=== PATIENT | male | born 1935 | race Caucasian/White ===

== ENCOUNTER 2016-06-29 15:49 | Outpatient (CLI) | payer MEDICARE | END 2016-06-29 15:50 | disposition critical access hospital (66) | DX: R07.9 Chest pain, unspecified (principal) | CPT/HCPCS: A0425; A0427 ==

== ENCOUNTER 2016-07-08 13:02 | Outpatient (CLI) | payer MEDICARE | END 2016-07-08 13:03 | disposition home or self-care (01) | DX: I25.10 Atherosclerotic heart disease of native coronary artery without angina pectoris (principal) ==

== ENCOUNTER 2016-12-12 07:24 | Outpatient (CLI) | payer MEDICARE ==
[2016-12-12 11:27] LABS: BASOPHILS % (AUTO) 0.2 %; EOSINOPHILS # (AUTO) 0.2 10^3/uL (0.0-0.7); EOSINOPHILS % (AUTO) 1.8 %; HCT - HEMATOCRIT 40.8 % (42.0-52.0); HGB - HEMOGLOBIN 13.8 g/dL (14.0-18.0); LYMPHOCYTES # (AUTO) 1.2 10^3/uL (1.5-3.5); LYMPHOCYTES % (AUTO) 13.9 %; MEAN CORPUSCULAR HEMOGLOBIN 30.7 pg (27.0-31.0); MEAN CORPUSCULAR HGB CONC 33.7 g/dL (32.0-36.0); MEAN PLATELET VOLUME 8.3 fL (7.4-11.4); MONOCYTES # (AUTO) 0.6 10^3/uL (0.0-1.0); MONOCYTES % (AUTO) 7.3 %; NEUTROPHILS # (AUTO) 6.8 10^3/uL (1.5-6.6); NEUTROPHILS % (AUTO) 76.8 %; RED BLOOD COUNT 4.49 10^6/uL (4.70-6.10); RED CELL DISTRIBUTION WIDTH 14.5 % (12.0-15.0); UNCORRECTED WHITE BLOOD COUNT 8.9 x10^3/uL; WHITE BLOOD COUNT 8.9 x10^3/uL (4.8-10.8)
[2016-12-12 11:43] LABS: ALBUMIN/GLOBULIN RATIO 1.3 (1.0-2.2); BILIRUBIN,TOTAL 0.5 mg/dL (0.2-1.0); BUN - BLOOD UREA NITROGEN 19 mg/dL (6-20); CALCIUM 9.4 mg/dL (8.5-10.3); CARBON DIOXIDE - CO2 29 mmol/L (21-32); CHLORIDE 105 mmol/L (101-111); CHOL/HDL RATIO 3.3 (<5.0); CHOLESTEROL 202 mg/dL; GFR - MDRD 72 (>89); GLUCOSE 104 mg/dL (70-100); HDL CHOLESTEROL 61 mg/dL; LDL/HDL RATIO 2.1 (<3.6); POTASSIUM 3.9 mmol/L (3.5-5.0); SODIUM 140 mmol/L (135-145); TOTAL PROTEIN 6.9 g/dL (6.7-8.2); TRIGLYCERIDES 59 mg/dL; VLDL CHOLESTEROL 12 mg/dL
== END 2016-12-12 07:25 | disposition home or self-care (01) ==
LOC: LAB.F 07:24
PROVIDERS: ATTEND Family Medicine
DX: E78.00 Pure hypercholesterolemia, unspecified (principal); I25.10 Atherosclerotic heart disease of native coronary artery without angina pectoris; I65.29 Occlusion and stenosis of unspecified carotid artery; I10 Essential (primary) hypertension
CPT/HCPCS: 36415; 80053; 80061; 84443; 85025

== ENCOUNTER 2017-05-21 09:12 | Outpatient (CLI) | payer MEDICARE ==
[2017-05-21 17:33] LABS: CALCIUM 9.9 mg/dL (8.5-10.3); CREATININE 1.3 mg/dL (0.6-1.2)
[2017-05-21 17:42] LABS: PSA FREE 4.33 ng/mL (0.16-2.81)
[2017-05-21 17:43] LABS: PSA TOTAL 28.36 ng/mL (0.000-2.000)
== END 2017-05-21 09:13 | disposition home or self-care (01) ==
LOC: LAB.F 09:12
PROVIDERS: ATTEND Family Medicine
DX: I10 Essential (primary) hypertension (principal); R97.20 Elevated prostate specific antigen [PSA]
CPT/HCPCS: 36415; 80048; 84154

== ENCOUNTER 2018-10-31 20:52 | Outpatient (CLI) | payer MEDICARE | END 2018-10-31 20:53 | disposition short-term general hospital (02) | LOC: EMS 20:52 | PROVIDERS: ATTEND Surgery | DX: M25.552 Pain in left hip (principal); R42 Dizziness and giddiness; W18.39XA Other fall on same level, initial encounter; Y92.039 Unspecified place in apartment as the place of occurrence of the external cause | CPT/HCPCS: A0425; A0429; A0888 ==

== ENCOUNTER 2019-03-01 11:51 | Outpatient (CLI) | payer MEDICARE ==
[2019-03-01 18:43] LABS: HGB - HEMOGLOBIN 13.7 g/dL (14.0-18.0); MEAN CORPUSCULAR HEMOGLOBIN 31.2 pg (27.0-31.0); MEAN CORPUSCULAR HGB CONC 31.4 g/dL (32.0-36.0); MEAN CORPUSCULAR VOLUME 99.3 fL (80.0-94.0); MEAN PLATELET VOLUME 9.7 fL (7.4-11.4); RED BLOOD COUNT 4.39 10^6/uL (4.70-6.10); RED CELL DISTRIBUTION WIDTH 13.8 % (12.0-15.0); WHITE BLOOD COUNT 9.6 x10^3/uL (4.8-10.8)
[2019-03-01 18:58] LABS: CALCIUM 9.3 mg/dL (8.5-10.3); CREATININE 0.9 mg/dL (0.6-1.2)
== END 2019-03-01 23:59 | disposition home or self-care (01) ==
LOC: LAB.N 11:51
PROVIDERS: ATTEND Physician Assistant Medical
DX: I10 Essential (primary) hypertension (principal); R06.02 Shortness of breath
CPT/HCPCS: 36415; 80048; 83880; 85027

== ENCOUNTER 2019-05-13 12:14 | Outpatient (CLI) | payer MEDICARE ==
[2019-05-13 19:07] LABS: BASOPHILS % (AUTO) 0.4 %; EOSINOPHILS # (AUTO) 0.1 10^3/uL (0.0-0.7); EOSINOPHILS % (AUTO) 0.9 %; HGB - HEMOGLOBIN 13.9 g/dL (14.0-18.0); LYMPHOCYTES # (AUTO) 0.9 10^3/uL (1.5-3.5); LYMPHOCYTES % (AUTO) 7.6 %; MEAN CORPUSCULAR HEMOGLOBIN 30.6 pg (27.0-31.0); MEAN CORPUSCULAR HGB CONC 30.8 g/dL (32.0-36.0); MEAN CORPUSCULAR VOLUME 99.6 fL (80.0-94.0); MEAN PLATELET VOLUME 10.1 fL (7.4-11.4); MONOCYTES # (AUTO) 0.8 10^3/uL (0.0-1.0); MONOCYTES % (AUTO) 7.3 %; NEUTROPHILS # (AUTO) 9.3 10^3/uL (1.5-6.6); NEUTROPHILS % (AUTO) 83.3 %; PLT - PLATELET COUNT 322 10^3/uL (130-450); RED BLOOD COUNT 4.54 10^6/uL (4.70-6.10); WHITE BLOOD COUNT 11.1 x10^3/uL (4.8-10.8)
[2019-05-13 19:15] LABS: CALCIUM 9.5 mg/dL (8.5-10.3); CREATININE 0.9 mg/dL (0.6-1.2)
[2019-05-13 19:30] LABS: PSA FREE 10.46 ng/mL (0.16-2.81)
[2019-05-13 19:31] LABS: PSA TOTAL 60.78 ng/mL (0.000-2.000)
== END 2019-05-13 23:59 | disposition home or self-care (01) ==
LOC: LAB.N 12:14
PROVIDERS: ATTEND Nurse Practitioner Gerontology
DX: R97.20 Elevated prostate specific antigen [PSA] (principal); R31.9 Hematuria, unspecified; R30.0 Dysuria
CPT/HCPCS: 36415; 80048; 84153; 84154; 85025; 87077; 87086; 87181

== ENCOUNTER 2019-06-27 00:15 | Outpatient (CLI) | payer MEDICARE | END 2019-06-27 00:16 | disposition critical access hospital (66) | LOC: EMS 00:15 | PROVIDERS: ATTEND Surgery | DX: M25.552 Pain in left hip (principal); W01.198A Fall on same level from slipping, tripping and stumbling with subsequent striking against other object, initial encounter; Y92.099 Unspecified place in other non-institutional residence as the place of occurrence of the external cause | CPT/HCPCS: A0425; A0429 ==

== ENCOUNTER 2019-06-27 00:30 | Emergency (ER) | payer MEDICARE ==
--- NOTE | 2019-06-27 00:33 | ED Physician Documentation ---
History of Present Illness - Stated complaint Stated Complaint: GLF, LT HIP PAIN - History obtained from History obtained from: Patient, EMS (the patient presents via ems after he had an unwitnessed fall and is c/o of left hip pain, ems reports he was able to bear weight on scene. reports he bumped against wall and slumped to the floor, c/o abrasion to left head. unknown if patient is anticoagulated or not.) Review of Systems Constitutional: reports: Reviewed and negative Eyes: reports: Reviewed and negative Ears: reports: Reviewed and negative Nose: reports: Reviewed and negative Throat: reports: Reviewed and negative Cardiac: reports: Reviewed and negative Respiratory: reports: Reviewed and negative GI: reports: Reviewed and negative : reports: Reviewed and negative Skin: reports: Other (abrasion to left scalp) Musculoskeletal: reports: Other (left hip pain) Neurologic: reports: Head injury Psychiatric: reports: Reviewed and negative Endocrine: reports: Reviewed and negative Immunocompromised: reports: Reviewed and negative PD PAST MEDICAL HISTORY - Past Medical History Cardiovascular: Hypertension, Coronary artery disease Respiratory: None Endocrine/Autoimmune: None GI: None : Benign prostate hypertrophy HEENT: None Psych: None Musculoskeletal: None Derm: None - Past Surgical History General: Other Ortho: Hip replacement, Other Cardiovascular: CABG Neuro: Craniotomy HEENT: Cataracts - Present Medications Home Medications: Ambulatory Orders Medication Instructions Recorded Confirmed Losartan Potassium 50 mg PO BID 09/13/15 06/27/19 Metoprolol Tartrate 37.5 mg PO BID 09/13/15 06/27/19 amLODIPine [Norvasc] 10 mg PO DAILY 09/13/15 06/27/19 acetaZOLAMIDE [Diamox Sequels] 500 mg PO BID 01/10/16 06/27/19 Acetaminophen 3 tab PO TID 06/27/19 06/27/19 Aspirin 81 mg PO DAILY 06/27/19 06/27/19 Calcium Carbonate [Tums (Calcium 1,000 mg PO DAILY 06/27/19 06/27/19 Carbonate 500mg)] Cholecalciferol (Vitamin D3) 1,000 unit PO DAILY 06/27/19 06/27/19 [Vitamin D3] Diclofenac Sodium [Voltaren] 100 gm TOP DAILY PRN 06/27/19 06/27/19 Furosemide [Lasix] 20 mg PO DAILY 06/27/19 06/27/19 Hydrocodone/Acetaminophen 1 tab PO Q4HR PRN 06/27/19 06/27/19 [Hydrocodone-Acetamin 5-325 mg] Nitroglycerin 0.4 mg SL DAILY PRN 06/27/19 06/27/19 hydrOXYzine HCL [Hydroxyzine HCl] 25 mg PO Q4HR PRN 06/27/19 06/27/19 - Allergies Allergies/Adverse Reactions: Allergies Allergy/AdvReac Type Severity Reaction Status Date / Time hydrochlorothiazide AdvReac Unknown Verified 06/27/19 00:47 lisinopril AdvReac Unknown Verified 06/27/19 00:47 rosuvastatin calcium * AdvReac Unknown Verified 06/27/19 00:47 [From Crestor] PD ED PE NORMAL - Vitals Vital signs reviewed: Yes - General General: No acute distress, Well developed/nourished - HEENT HEENT: PERRL, Ears normal, Moist mucous membranes, Pharynx benign, Dentition benign, Other (soft tissue injury to left parietal scalp, superficial 1 cm abrasion) - Neck Neck: Other (c collar in place, no cervical midline stepoffs or deformities, trachea midline) - Cardiac Cardiac: RRR, No murmur, Strong equal pulses - Respiratory Respiratory: No respiratory distress, Clear bilaterally - Abdomen Abdomen: Normal bowel sounds, Soft, Non tender, Non distended - Back Back: No CVA TTP, No spinal TTP, Other (no ctls step offs or deformities) - Derm Derm: Warm and dry - Extremities Extremities: Other (left le appears shortened and externally rotated, compartments soft, nv intact, palpable dp/pt pulses 2+ and symettric. ) - Neuro Neuro: casino manager 2-12 intact, No motor deficit, No sensory deficit, Normal speech, Other (awake, alert, oriented to name, place but not time.) - Psych Psych: Normal mood, Normal affect Results - Vitals Vitals: Vital Signs - 24 hr 06/27/19 06/27/19 06/27/19 00:30 01:40 03:05 Temperature 36.6 C Heart Rate 54 L 56 L 60 Respiratory 15 16 19 Rate Blood Pressure 190/78 H 184/74 H 194/80 H O2 Saturation 98 100 98 06/27/19 06/27/19 06/27/19 03:10 04:08 04:40 Temperature Heart Rate 60 74 95 Respiratory 19 15 18 Rate Blood Pressure 194/80 H 193/71 H 197/108 H O2 Saturation 98 98 97 06/27/19 06/27/19 05:24 05:47 Temperature 36.8 C Heart Rate 100 88 Respiratory 19 16 Rate Blood Pressure 198/98 H 176/83 H O2 Saturation 100 99 Oxygen O2 Source Room air - Labs Labs: Laboratory Tests 06/27/19 06/27/19 06/27/19 01:02 01:02 01:02 WBC 10.6 RBC 4.20 L Hgb 13.6 L Hct 41.5 L MCV 98.8 H MCH 32.4 H MCHC 32.8 RDW 13.8 Plt Count 262 MPV 9.8 Neut # (Auto) 8.8 H Lymph # (Auto) 1.0 L [place] # (Auto) 0.7 Eos # (Auto) 0.1 Baso # (Auto) 0.0 Absolute Nucleated RBC 0.00 Nucleated RBC % 0.0 PT 11.7 INR 1.0 APTT 28.6 Sodium 140 Potassium 3.7 Chloride 105 Carbon Dioxide 24 Anion Gap 11.0 BUN 24 H Creatinine 0.8 Estimated GFR (MDRD) 93 Glucose 111 H Calcium 9.5 Total Bilirubin 0.6 AST 11 ALT 10 Alkaline Phosphatase 84 Troponin I High Sens Total Protein 6.8 Albumin 4.0 Globulin 2.8 Albumin/Globulin Ratio 1.4 Lipase 33 Urine Color Urine Clarity Urine pH Ur Specific [place] Urine Protein Urine Glucose (UA) Urine Ketones Urine Occult Blood Urine Nitrite Urine Bilirubin Urine Urobilinogen Ur Leukocyte Esterase Ur Microscopic Review Urine Culture Comments 06/27/19 06/27/19 06/27/19 01:02 01:04 02:34 WBC RBC Hgb Hct MCV MCH MCHC RDW Plt Count MPV Neut # (Auto) Lymph # (Auto) [place] # (Auto) Eos # (Auto) Baso # (Auto) Absolute Nucleated RBC Nucleated RBC % PT INR APTT Sodium Potassium Chloride Carbon Dioxide Anion Gap BUN Creatinine Estimated GFR (MDRD) Glucose Calcium Total Bilirubin AST ALT Alkaline Phosphatase Troponin I High Sens 24.1 H* 24.9 H* Total Protein Albumin Globulin Albumin/Globulin Ratio Lipase Urine Color YELLOW Urine Clarity CLEAR Urine pH 6.5 Ur Specific [place] <=1.005 Urine Protein NEGATIVE Urine Glucose (UA) NEGATIVE Urine Ketones NEGATIVE Urine Occult Blood NEGATIVE Urine Nitrite NEGATIVE Urine Bilirubin NEGATIVE Urine Urobilinogen 0.2 (NORMAL) Ur Leukocyte Esterase NEGATIVE Ur Microscopic Review NOT INDICATED Urine Culture Comments NOT INDICATED PD MEDICAL DECISION MAKING - ED course Complexity details: considered differential (closed head injury, scalp abrasion, pelvic fracture, hip fracture, hip dislocation, femur fracture, cervical spine injury) - Consults Consults: Consulted (name) ([facility] orthopedic surgery dr. campbell. will accept this patient. ), Request heritage consultant accept pt in transfer (dr. campbell @ [phone], has agreed to accept this patient at [facility]. ) - Critical Care Time(min): 74 Time Includes: Direct patient care, Review records, Reassess patient, Document care, Coordinate care, Medical consult Data interpretation: Labs Procedures included in critical care time: Peripheral IV Procedures excluded from critical care time: EKG Departure - Departure Disposition: 02 Transfer Acute Care Hosp Clinical Impression: Elevated troponin Fracture of femoral neck, left, closed Qualifiers: Encounter type: initial encounter Qualified Code(s): S72.002A - Fracture of unspecified part of neck of left femur, initial encounter for closed fracture Condition: Stable
[2019-06-27] MEDS ORDERED: TETANUS/DIPHTHERIA/PERTUSSIS 0.5 ML SYRINGE IM ONE (00:44)
[2019-06-27] MEDS ORDERED: BACITRACIN ZINC OINT 1 PACKET TOP STA (00:44)
[2019-06-27 01:15] LABS: BASOPHILS % (AUTO) 0.3 %; EOSINOPHILS # (AUTO) 0.1 10^3/uL (0.0-0.7); HGB - HEMOGLOBIN 13.6 g/dL (14.0-18.0); MEAN CORPUSCULAR HEMOGLOBIN 32.4 pg (27.0-31.0); MEAN CORPUSCULAR HGB CONC 32.8 g/dL (32.0-36.0); MEAN CORPUSCULAR VOLUME 98.8 fL (80.0-94.0); MEAN PLATELET VOLUME 9.8 fL (7.4-11.4); MONOCYTES # (AUTO) 0.7 10^3/uL (0.0-1.0); MONOCYTES % (AUTO) 6.7 %; NEUTROPHILS # (AUTO) 8.8 10^3/uL (1.5-6.6); NEUTROPHILS % (AUTO) 82.4 %; PLT - PLATELET COUNT 262 10^3/uL (130-450); RED CELL DISTRIBUTION WIDTH 13.8 % (12.0-15.0); WHITE BLOOD COUNT 10.6 x10^3/uL (4.8-10.8)
[2019-06-27 01:29] LABS: BILIRUBIN,URINE NEGATIVE (NEGATIVE); GLUCOSE, URINE (UA) NEGATIVE (NEGATIVE); KETONES,URINE (UA) NEGATIVE (NEGATIVE); LEUKOCYTE ESTERASE, URINE NEGATIVE (NEGATIVE); NITRITE,URINE NEGATIVE (NEGATIVE); OCCULT BLOOD,URINE NEGATIVE (NEGATIVE); PH,URINE 6.5 PH (5.0-7.5); PROTEIN,URINE NEGATIVE (NEGATIVE); UROBILINOGEN,URINE 0.2 (NORMAL) E.U./dL (NORMAL)
[2019-06-27 01:31] LABS: CLARITY,URINE CLEAR (CLEAR)
[2019-06-27 01:35] LABS: PT - PROTHROMBIN TIME 11.7 secs (9.9-12.6)
[2019-06-27 01:36] LABS: ALBUMIN/GLOBULIN RATIO 1.4 (1.0-2.2); BILIRUBIN,TOTAL 0.6 mg/dL (0.2-1.0); CALCIUM 9.5 mg/dL (8.5-10.3); CREATININE 0.8 mg/dL (0.6-1.2); TOTAL PROTEIN 6.8 g/dL (6.7-8.2)
[2019-06-27 01:42] LABS: PARTIAL THROMBOPLASTIN TIME 28.6 secs (24.9-33.3)
--- NOTE | 2019-06-27 01:55 | CT Report ---
Reason: head injury Procedure Date: 06/27/2019 Accession Number: [id number] / [id number] Procedure: CT - HEAD WO CPT Code: Final Report FULL RESULT: EXAM: CT HEAD EXAM DATE: 06/27/2019 01:12 AM. CLINICAL HISTORY: Head injury. COMPARISON: None. TECHNIQUE: Multiaxial CT images were obtained from the foramen magnum to the vertex. Reformats: Sagittal and coronal. IV contrast: None. In accordance with CT protocol optimization, one or more of the following dose reduction techniques were utilized for this exam: automated exposure control, adjustment of mA and/or KV based on patient size, or use of iterative reconstructive technique. FINDINGS: Parenchyma: No intraparenchymal hemorrhage. No evidence of mass, midline shift, or CT findings of acute infarction. Núñez-white differentiation is distinct. Diffuse chronic microangiopathic white matter changes are evident. Extraaxial Spaces: Normal for age. No subdural or epidural collections identified. Ventricles: The ventricles and cortical sulci are enlarged, consistent with age-related tissue loss. Sinuses and orbits: Imaged paranasal sinuses, orbits, and mastoids show no significant abnormality. Bones: Postoperative changes in the right occipital skull. Other: None. IMPRESSION: Generalized age-related cortical atrophic changes without evidence of acute intracranial abnormality. Postoperative changes in the right occipital skull. RADIA
--- NOTE | 2019-06-27 01:57 | XRAY Report ---
Reason: ams Procedure Date: 06/27/2019 Accession Number: [id number] / [id number] Procedure: XR - Chest 1 View X-Ray CPT Code: 96835 Final Report FULL RESULT: EXAM: CHEST RADIOGRAPHY EXAM DATE: 06/27/2019 01:23 AM. CLINICAL HISTORY: Ams. COMPARISON: CHEST 2 VIEW 10/26/2018 4:13 PM. TECHNIQUE: 1 view. FINDINGS: Lungs/Pleura: Patchy bilateral airspace disease. No effusion or pneumothorax. Mediastinum: Cardiomegaly and postoperative changes. Other: None. IMPRESSION: Patchy bilateral airspace disease. RADIA
--- NOTE | 2019-06-27 02:01 | XRAY Report ---
Reason: fall left hip pain Procedure Date: 06/27/2019 Accession Number: [id number] / [id number] Procedure: XR - Hip w/Pelvis 2-3V LT CPT Code: Final Report FULL RESULT: EXAM: LEFT HIP RADIOGRAPHY EXAM DATE: 06/27/2019 01:23 AM. CLINICAL HISTORY: Fall left hip pain. COMPARISON: None. TECHNIQUE: 2 views. FINDINGS: Bones: Deformity of the proximal femur, likely representing an impacted subcapital left femoral neck fracture, superimposed upon severe osteoarthritic changes. Joints: Severe osteoarthritis of the left hip. Right hip replacement. Soft Tissues: Vascular calcifications. IMPRESSION: Deformity of the proximal left femur, most compatible with an impacted subcapital fracture superimposed upon severe osteoarthritis of the left hip. RADIA
--- NOTE | 2019-06-27 02:07 | CT Report ---
Reason: fall neck pain Procedure Date: 06/27/2019 Accession Number: [id number] / [id number] Procedure: CT - CERVICAL SPINE WO CPT Code: Final Report FULL RESULT: EXAM: CT CERVICAL SPINE WITHOUT CONTRAST DATE: 06/27/2019 01:12 AM. HISTORY: Fall, neck pain. COMPARISONS: None. TECHNIQUE: Thin-section axial images were acquired of the cervical spine without contrast. Post-processing: Coronal and sagittal reformats. Other: None. In accordance with CT protocol optimization, one or more of the following dose reduction techniques were utilized for this exam: automated exposure control, adjustment of mA and/or KV based on patient size, or use of iterative reconstructive technique. FINDINGS: Alignment: No scoliosis or spondylolisthesis. Bones: No fracture or bone lesion. Interspace Levels/Facets: There are cerclage wires with posterior fusion of CT 4 through C7 levels. Anterior bony fusion of at least C4-C6 levels. C1-C2: Unremarkable. C2-C3: Moderate bilateral facet hypertrophy. Moderate left and mild right neural foraminal narrowing. C3-C4: Uncovertebral osteophytosis with mild bilateral neural foraminal narrowing. C4-C5: Unremarkable. C5-C6: Unremarkable. C6-C7: Uncovertebral osteophytosis with mild left neural foraminal narrowing. C7-T1: Unremarkable. Musculature: Normal. No fatty atrophy. Other: The paravertebral and prevertebral soft tissues are unremarkable. Emphysema. IMPRESSION: No evidence of cervical spine fracture. RADIA
[2019-06-27] MEDS ORDERED: fentaNYL 100 MCG/2 ML VIAL IVP STA (05:09)
[2019-06-27 06:44] VITALS: BP 192/81
== END 2019-06-27 07:10 | disposition short-term general hospital (02) ==
LOC: EDBD → EDUNIT# → ED 00:30
DX: S72.002A Fracture of unspecified part of neck of left femur, initial encounter for closed fracture (principal); W19.XXXA Unspecified fall, initial encounter; Y92.199 Unspecified place in other specified residential institution as the place of occurrence of the external cause; R79.89 Other specified abnormal findings of blood chemistry; I10 Essential (primary) hypertension
CPT/HCPCS: 36415; 70450; 71045; 72125; 73502; 80053; 81003; 83690; 84484; 85025; 85610; 85730; 90471; 90715; 93005; 96374; 99285; 99291; A9270; 81001; 87086

== ENCOUNTER 2019-06-27 07:14 | Outpatient (CLI) | payer MEDICARE | END 2019-06-27 07:15 | disposition short-term general hospital (02) | LOC: EMS 07:14 | PROVIDERS: ATTEND Surgery | DX: S72.002A Fracture of unspecified part of neck of left femur, initial encounter for closed fracture (principal); W18.30XA Fall on same level, unspecified, initial encounter | CPT/HCPCS: A0425; A0428 ==

== ENCOUNTER 2019-08-21 21:03 | Outpatient (CLI) | payer MEDICARE | END 2019-08-21 23:59 | disposition critical access hospital (66) | LOC: EMS 21:03 | PROVIDERS: ATTEND Surgery | DX: R07.9 Chest pain, unspecified (principal) | CPT/HCPCS: A0425; A0429 ==

== ENCOUNTER 2019-08-21 21:15 | Emergency (ER) | payer MEDICARE ==
--- NOTE | 2019-08-21 21:26 | ED Physician Documentation ---
PD HPI CHEST PAIN - Stated complaint Stated Complaint: CP - History obtained from History obtained from: Patient, EMS - History of Present Illness Timing - onset: Other (This is a somewhat demented 84-year-old gentleman presents from a longterm. He has an extensive history of coronary disease, with a bypass and stenting although the details are somewhat lost because of his dementia. He has had 2 or 3 episodes of typical rest pain today lasting minutes at a time with shortness of breath. He is pain-free now.) Review of Systems Ten Systems: 10 systems reviewed and negative Constitutional: denies: Fever, Chills, Fatigue Cardiac: reports: Chest pain / pressure. denies: Palpitations Respiratory: reports: Dyspnea. denies: Cough GI: denies: Abdominal Pain PD PAST MEDICAL HISTORY - Past Medical History Cardiovascular: Hypertension, Coronary artery disease Respiratory: None Neuro: Dementia, Other Endocrine/Autoimmune: None GI: None : Benign prostate hypertrophy HEENT: None Psych: None Musculoskeletal: None Derm: None - Past Surgical History Past Surgical History: Yes General: Other Ortho: Hip replacement, Other Cardiovascular: CABG Neuro: Craniotomy HEENT: Cataracts - Present Medications Home Medications: Ambulatory Orders Medication Instructions Recorded Confirmed Losartan Potassium 50 mg PO BID 09/13/15 06/27/19 Metoprolol Tartrate 37.5 mg PO BID 09/13/15 06/27/19 amLODIPine [Norvasc] 10 mg PO DAILY 09/13/15 06/27/19 acetaZOLAMIDE [Diamox Sequels] 500 mg PO BID 01/10/16 06/27/19 Acetaminophen 3 tab PO TID 06/27/19 06/27/19 Aspirin 81 mg PO DAILY 06/27/19 06/27/19 Calcium Carbonate [Tums (Calcium 1,000 mg PO DAILY 06/27/19 06/27/19 Carbonate 500mg)] Cholecalciferol (Vitamin D3) 1,000 unit PO DAILY 06/27/19 06/27/19 [Vitamin D3] Diclofenac Sodium [Voltaren] 100 gm TOP DAILY PRN 06/27/19 06/27/19 Furosemide [Lasix] 20 mg PO DAILY 06/27/19 06/27/19 Hydrocodone/Acetaminophen 1 tab PO Q4HR PRN 06/27/19 06/27/19 [Hydrocodone-Acetamin 5-325 mg] Nitroglycerin 0.4 mg SL DAILY PRN 06/27/19 06/27/19 hydrOXYzine HCL [Hydroxyzine HCl] 25 mg PO Q4HR PRN 06/27/19 06/27/19 Isosorbide Mononitrate ER [Imdur] 60 mg PO DAILY #30 tablet 08/21/19 - Allergies Allergies/Adverse Reactions: Allergies Allergy/AdvReac Type Severity Reaction Status Date / Time hydrochlorothiazide AdvReac Unknown Verified 08/21/19 21:27 lisinopril AdvReac Unknown Verified 08/21/19 21:27 rosuvastatin calcium * AdvReac Unknown Verified 08/21/19 21:27 [From Crestor] - Social History Does the pt smoke?: No Smoking Status: Never smoker Does the pt drink ETOH?: No Does the pt have substance abuse?: No - Family History Family history: reports: Non contributory - Immunizations Immunizations: TDAP >10years/unknown - POLST Patient has POLST: Yes PD ED PE NORMAL - Vitals Vital signs reviewed: Yes - General General: No acute distress, Well developed/nourished, Other (He appears comfortable, he is modestly demented but pleasant and cooperative.) - HEENT HEENT: PERRL, EOMI - Neck Neck: Supple, no meningeal sign, No bony TTP - Cardiac Cardiac: RRR (Frequent extrasystoles, no murmur) - Respiratory Respiratory: No respiratory distress, Clear bilaterally - Abdomen Abdomen: Normal bowel sounds, Soft, Non tender - Back Back: No CVA TTP, No spinal TTP - Derm Derm: Normal color, Warm and dry - Extremities Extremities: Normal ROM s pain, No edema, No calf tenderness / cord - Neuro Neuro: Normal speech Results - Vitals Vitals: Vital Signs - 24 hr 08/21/19 21:23 Temperature 36.5 C Heart Rate 85 Respiratory 18 Rate Blood Pressure 173/72 H O2 Saturation 100 Oxygen O2 Source Room air - EKG (time done) 2115 Rate: Rate (enter#) (76) Rhythm: NSR (w pac) [place]: Normal QRS: LVH Ischemia: Non specific changes Computer interpretation: Agree with computer - Labs Labs: Laboratory Tests 08/21/19 08/21/19 08/21/19 21:25 21:25 21:25 WBC 8.1 RBC 3.82 L Hgb 12.3 L Hct 37.4 L MCV 97.9 H MCH 32.2 H MCHC 32.9 RDW 13.8 Plt Count 289 MPV 9.7 Neut # (Auto) 6.4 Lymph # (Auto) 0.8 L [place] # (Auto) 0.7 Eos # (Auto) 0.2 Baso # (Auto) 0.0 Absolute Nucleated RBC 0.00 Nucleated RBC % 0.0 Sodium 142 Potassium 3.5 Chloride 106 Carbon Dioxide 28 Anion Gap 8.0 BUN 24 H Creatinine 1.2 Estimated GFR (MDRD) 58 L Glucose 120 H Calcium 9.2 Total Bilirubin 0.6 AST 12 ALT 12 Alkaline Phosphatase 89 Troponin I High Sens 23.3 H* Total Protein 6.4 L Albumin 3.6 Globulin 2.8 Albumin/Globulin Ratio 1.3 Lipase 37 PD MEDICAL DECISION MAKING - ED course ED course: This is an 84-year-old gentleman with known coronary disease who presents with 2 typical episodes of chest pain today. His EKG is unchanged from prior. His troponin is very mildly elevated but it is in the same range as when he broke his hip and was rechecked twice a couple months ago so this may be his baseline troponin. I discussed the case with his daughter by phone, she relays that he is demented and before he was he did not want any more interventions on his heart and she had been told by the manufacturing operator that no more interventions would be available for him. As such she declined to have cardiology consultation or transfer. Departure - Departure Disposition: 01 Home, Self Care Clinical Impression: Chest pain Qualifiers: Chest pain type: unspecified Qualified Code(s): R07.9 - Chest pain, unspecified Condition: Good Record reviewed to determine appropriate education?: Yes Instructions: Angina Dc Prescriptions: Isosorbide Mononitrate ER [Imdur] 60 mg PO DAILY #30 tablet Comments: Follow-up with your primary care physician for further evaluation and treatment. Return if worse and you would like interventions upon your heart.
[2019-08-21 21:29] LABS: BASOPHILS % (AUTO) 0.2 %; EOSINOPHILS # (AUTO) 0.2 10^3/uL (0.0-0.7); EOSINOPHILS % (AUTO) 1.9 %; HGB - HEMOGLOBIN 12.3 g/dL (14.0-18.0); LYMPHOCYTES # (AUTO) 0.8 10^3/uL (1.5-3.5); LYMPHOCYTES % (AUTO) 10.3 %; MEAN CORPUSCULAR HEMOGLOBIN 32.2 pg (27.0-31.0); MEAN CORPUSCULAR HGB CONC 32.9 g/dL (32.0-36.0); MEAN CORPUSCULAR VOLUME 97.9 fL (80.0-94.0); MEAN PLATELET VOLUME 9.7 fL (7.4-11.4); MONOCYTES # (AUTO) 0.7 10^3/uL (0.0-1.0); MONOCYTES % (AUTO) 8.2 %; NEUTROPHILS # (AUTO) 6.4 10^3/uL (1.5-6.6); PLT - PLATELET COUNT 289 10^3/uL (130-450); RED BLOOD COUNT 3.82 10^6/uL (4.70-6.10); RED CELL DISTRIBUTION WIDTH 13.8 % (12.0-15.0); WHITE BLOOD COUNT 8.1 x10^3/uL (4.8-10.8)
[2019-08-21 21:43] LABS: ALBUMIN 3.6 g/dL (3.2-5.5); ALBUMIN/GLOBULIN RATIO 1.3 (1.0-2.2); BILIRUBIN,TOTAL 0.6 mg/dL (0.2-1.0); CALCIUM 9.2 mg/dL (8.5-10.3); CREATININE 1.2 mg/dL (0.6-1.2); TOTAL PROTEIN 6.4 g/dL (6.7-8.2)
--- NOTE | 2019-08-21 22:26 | XRAY Report ---
Reason: chest pain Procedure Date: 08/21/2019 Accession Number: [id number] / [id number] Procedure: XR - Chest 1 View X-Ray CPT Code: 20281 Final Report FULL RESULT: EXAM: CHEST RADIOGRAPHY EXAM DATE: 08/21/2019 09:48 PM. CLINICAL HISTORY: Chest pain. Intermittent sternal chest pain since this morning. Shortness of breath. COMPARISON: CHEST 2 VIEW 10/26/2018 4:13 PM CHEST 1 VIEW 06/27/2019 1:23 AM. TECHNIQUE: 1 view. FINDINGS: Lungs/Pleura: No significant consolidation, effusion, or definite pneumothorax. Mediastinum: Cardiac silhouette is within normal limits when accounting for lung volumes and technique. Moderate calcific aortic atherosclerosis. Other: Primary sternotomy and CABG. Severity generally change about the shoulders bilaterally, left greater than right. IMPRESSION: No acute cardiopulmonary abnormality demonstrated. RADIA
[2019-08-21] MEDS ORDERED: ISOSORBIDE MONONITRATE ER 30 MG TABLET PO STA (22:39)
[2019-08-21 22:54] VITALS: BP 172/90
== END 2019-08-21 23:49 | disposition home or self-care (01) ==
LOC: EDUNIT# → ED 21:15
DX: R07.9 Chest pain, unspecified (principal); I25.10 Atherosclerotic heart disease of native coronary artery without angina pectoris; I10 Essential (primary) hypertension; Z95.1 Presence of aortocoronary bypass graft; I49.1 Atrial premature depolarization; Z79.82 Long term (current) use of aspirin; F03.90 Unspecified dementia, unspecified severity, without behavioral disturbance, psychotic disturbance, mood disturbance, and anxiety
CPT/HCPCS: 36415; 71045; 80053; 83690; 84484; 85025; 93005; 99283; 99284; A9270

== ENCOUNTER 2020-01-31 14:00 | Outpatient (CLI) | payer MEDICARE ==
--- NOTE | 2020-01-31 17:14 | CONSULTATION NOTE ---
Palliative Care Consultation - Referral Referring Provider: LESLEY Singh Time of Visit: 5818-5231 Referral setting: Adult Family Home Referral Reason: Dementia with behavioral disturbances/OA pain/Advanced care Planning - Information Sources Records reviewed: Previous records reviewed History/Review of Systems obtained from: Patient, Family (Daughter/DPOA via phone), Caregiver (Nahid) Exam limitations: Clinical condition (cognitive impairment due to dementia) - History of Present Illness Brief History of Present Illness: 84 year old gentleman who is seen and evaluated today at [facility] [place] for initial palliative care consultation due to dementia with behavioral disturbances, congestive heart failure, and osteoarthritis pain management. The patient is a poor historian due to dementia. ~History is obtained from the patient's caregiver, Amita as well as his daughter, Fatouamta. The patient has had a cognitive decline over the last several years. He and his were living when his daughter, Fatoumata's property for some time until he began developing cognitive impairments and making accusations towards his regarding their relationship status. He eventually moved out into his own apartment approximately 3 years ago. The patient's daughter, Radha was going to the patient's apartment approximately 3 days/week until subsequently she was having to go on a routine basis due to the patient's underlying dementia. He initially then transition to [facility] assisted [facility] in 2018. He did not like that environmentAnd he felt isolated. He subsequently then broke his hip and then was at a rehab facility in [place] until he transferred to [facility] in October 2019. He has adjusted well to his present environment. He is choking and jovial with the staff and other residents. The staff report that the patient is beginning to display evidence of sundowning behavior. He has been more agitated in the evenings. He also demonstrates delusions. There have been times that he has been accusatory Of his son-in-law taking money from him to buy a tractor. Due to his delusions it is difficult for the patient's daughter, Fatoumata to be present in person. The patient also has a history of insomnia. He is presently on quetiapine 25 mg at bedtime. He has pain to his right shoulder as well as to his bilateral knees. He is presently on scheduled acetaminophen 1000 mg twice daily with as needed Diflucan neck gel to be applied to affected joints.Has not had the Diflucan neck gel consistently to note any improvement. No concerns regarding his appetite. [facility] He does have a history of congestive heart failure. Does have lower extremity edema that presently appears to be stable and maintained with furosemide 20 mg daily. Patient is seen in the common area in his wheelchair. He reports to being able to self propel in his wheelchair. Well groomed and clean with a jovial disposition. Medical/Surgical History - Past Medical History Cardiovascular: reports: Congestive heart failure (EF 55-60%), Hypertension, Coronary artery disease, [place], Atrial fibrillation Respiratory: reports: None Neuro: Dementia Neuro: reports: Other (Subdural hematoma with evacuation age 17) Endocrine/Autoimmune: reports: None GI: reports: None : reports: Benign prostate hypertrophy HEENT: reports: None Psych: reports: Anxiety Musculoskeletal: reports: Osteoarthritis Derm: reports: None MRSA Hx?: No Other Past Medical History: Insomnia - Past Surgical History General: reports: Other Ortho: reports: Hip replacement, Other Cardiovascular: reports: CABG Neuro: reports: Craniotomy HEENT: reports: Cataracts Other past surgical history: Insomnia - Substance History Use: Uses substance without health or social issues: NONE (Former tobacco use and former alcoholic) Social History - Living Situation Living arrangement: Adult family home Support System: Patient was born in [place]. He worked in a [employer] in [place]. He and his have 6 children. He and his are . The patient's daughter, Fatoumata is DPOA for both the patient and his . He retired from would be [employer] performing [place] [facility] work. Family History - Family History Family History: Mother: , Father: , [place], Sister: Alive and Well, Brother: , Cancer Family History Comment/Other: Patient's mother had polio. No prior history of of cognitive impairment in the family. Medications/Allergies - Medications Home Medications: Ambulatory Orders Medication Instructions Recorded Confirmed Losartan Potassium 50 mg PO BID 09/13/15 02/01/20 Metoprolol Tartrate 37.5 mg PO BID 09/13/15 02/01/20 amLODIPine [Norvasc] 10 mg PO DAILY 09/13/15 02/01/20 acetaZOLAMIDE [Diamox Sequels] 500 mg PO BID 01/10/16 02/01/20 Aspirin 81 mg PO DAILY 06/27/19 02/01/20 Calcium Carbonate [Tums (Calcium 1,000 mg PO BID 06/27/19 02/01/20 Carbonate 500mg)] Diclofenac Sodium [Voltaren] TOP DAILY 06/27/19 06/27/19 Furosemide [Lasix] 20 mg PO DAILY 06/27/19 02/01/20 Nitroglycerin 0.4 mg SL DAILY PRN 06/27/19 02/01/20 Isosorbide Mononitrate ER [Imdur] 60 mg PO DAILY #30 tablet 08/21/19 02/01/20 Acetaminophen [Tylenol] 650 mg PO Q4HR PRN MDD NTE 3g per 02/01/20 02/01/20 24hours Magnesium Hydroxide [Milk of 30 ml PO DAILY PRN MDD If no BM in 02/01/20 02/01/20 Magnesia] 3 days Melatonin 6 mg PO QPM 02/01/20 02/01/20 QUEtiapine [SEROquel] 50 mg PO DAILY 02/01/20 02/01/20 Tamsulosin HCl [Flomax] 0.4 mg PO DAILY 02/01/20 02/01/20 - Allergies Allergies/Adverse Reactions: Allergies Allergy/AdvReac Type Severity Reaction Status Date / Time hydrochlorothiazide AdvReac Unknown Verified 02/01/20 16:51 lisinopril AdvReac Unknown Verified 02/01/20 16:51 rosuvastatin calcium * AdvReac Unknown Verified 02/01/20 16:51 [From [facility]] Review of Systems - Constitutional Constitutional: reports: Weight stable. denies: Fever - Ears, Nose & Throat Ears, Nose & Throat: denies: Hearing aids - Cardiovascular Cardiovascular: reports: Edema. denies: Palpitations, Chest pain - Respiratory Respiratory: denies: Cough, Wheezing - Gastrointestinal Gastrointestinal: reports: Good appetite. denies: Constipation, Diarrhea - Genitourinary Genitourinary: denies: Dysuria, Hematuria - Musculoskeletal Musculoskeletal: reports: Stiffness, Limited range of motion (b/l shoulders), Joint pain (right shoulder, bilateral knees), Assistive devices - Integumentary Integumentary: denies: Pruritis - Neurological Neurological: reports: General weakness, Memory problems - Psychiatric Psychiatric: reports: Delusions (see HPI for further details), Behavior disturbances - Endocrine Endocrine: denies: Diabetes type 2 - All Other Systems All Other Systems: reports: Reviewed and negative (ROS supplemented by patient's daughter and caregivers as a poor historian due to dementia.) Physical Exam - Vital Signs Temperature: 36.4 C Pulse Rate: 76 O2 Saturation: 95 Blood Pressure: 154/52 (left wrist cuff) - Physical Exam General Appearance: positive: No acute distress, Alert, Other (OOB in wheelchair, well groomed) Eyes Bilateral: positive: Normal inspection ENT: positive: No signs of dehydration Neck: positive: Trachea midline Cardiovascular: positive: Regular rate & rhythm, No murmur Respiratory: positive: No respiratory distress, Breath sounds nml. negative: Wheezes Abdomen: positive: Non-tender, Soft, Nml bowel sounds, Other (Bladder nondistended) Skin: positive: Dryness Extremities: positive: Pedal edema (BLE edema +trace), Other (Decreased ROM with right shoulder past 90 degrees with noted crepitus; +crepitus noted to b/l knees; Strength to UE and LE equal and symmetric bilaterally) Neurologic/Psychiatric: positive: Mood/affect nml, Disoriented to place (Believed he was in [place]), Other (Memory recall 04/08) Palliative Care - POLST Patient has POLST: Yes POLST Status: DNR, Comfort Measures Pain: Pain unchanged, Location (see HPI and ROS for further details) Tiredness/Fatigue: Mild (1-3) Drowsiness/Sedation: None Nausea: None Anorexia: None Dyspnea: Mild (1-3) Depression: None Sleep: Sleeps poorly Constipation: No, Managed Performance Status: Patient has a history of falls. Uses a wheelchair to self propel with in the adult family home. Requires assistance with ADLs regarding self-care. Able to self feed. PPS 50% - Palliative Care Discussion: The patient has experienced a cognitive decline over the last several years with a more sharp functional decline after sustaining a hip fracture after a fall. The patient's daughter acknowledges the patient's underlying dementia contributing to his interactions and underlying behavioral disturbances. However, this does not make it any easier for those involved in his care. The patient's daughter/DPOA reports that he has been particularly "nasty" to her in the last year, therefore she is having to separate herself being physically present and being there by phone and remotely for her own wellbeing and underlying health. The patient is having underlying pain that is not fully controlled in his joints with acetaminophen. The patient's daughter and caregiving staff wish for this to be further addressed. The patient is also displaying increased delusions and agitation in the early evening hours indicative of sundowning behavior. Presently he is only on quetiapine 25 mg nightly and this is not adequately managing his symptoms. Impression and Recommendations - Palliative Care Impression: This is a delightful 84-year-old gentleman with a significant cardiac history with underlying chronic pain due to osteoarthritis as well as dementia with behavioral disturbances specifically, sundowning behaviors and delusions. The patient's daughter/DPOA wishes to focus on improving the patient's quality of life with symptom management. Palliative care to continue to provide supportive listening, pain and symptom management, exploration of goals of care and anticipatory guidance. Recommendations/Counseling Done: 1. Osteoarthritis, multiple joints specifically right shoulder and bilateral knees. Patient presently on acetaminophen twice daily. Has as needed Voltaren gel but given the patient's living setting would be more beneficial for routine administration for adequate pain control. Initiate Voltaren gel 2 g application to right shoulder and 4 g application to the left and right knee once daily as a trial. Discontinue as needed Voltaren gel. If initiation of routine Voltaren gel is ineffective for adequate pain response then consider discontinuation of acetaminophen and initiation of hydrocodone/acetaminophen at a low dose to minimize potential side effects scheduled based on the patient's need, and daughter/DPOA, Fatoumata in agreement. Continue to monitor pain response and adjust pain regimen accordingly. 2.Congestive heart failure. Mild lower extremity edema noted on examination. No adventitious lung sounds. Continue furosemide 20 mg daily. 3. Dementia with behavioral disturbances. Chronic and progressive. Patient has a significant cardiac history and it is likely that his underlying dementia is vascular in nature. He has adjusted well to the adult family home but is presently demonstrating sundowning behaviors and increased agitation in the evenings. His family recognizes that he is having delusions due to his underlying dementia and although they recognize this, it still remains a difficult adjustment for them. Patient is presently on quetiapine 25 mg nightly and would benefit from an increase of quetiapine to 50 mg nightly. Reviewed the black box warning with quetiapine with the daughter who understand and verbalized agreement to proceed with dose adjustment. New prescription sent to mail order pharmacy as requested by the patient's daughter. Continue to monitor and adjust quetiapine based on the patient's response and reported behaviors. 4. Insomnia. Longstanding history. Presently on melatonin 6 mg nightly. Unclear if this may be potentially activating. May consider dose reduction in the future. Quetiapine should provide assistance with sleep due to its sedative properties. Continue to monitor. 5. Advance care planning. Patient has POLST in place as DN AR with comfort measures. The patient's daughter/DPDAVID Fatoumata has been providing oversight for medical management of both the patient and his spouse and the patient's daughter is in the process of relocating to [place] to have further us caregiving assistance from her siblings in regards to caring for the patient's . The patient's daughter wishes for him to have increased comfort. We will continue to tease out goals of care in subsequent visits. Time Spent: Total time spent 60 minutes with greater than 50% of this spent in counseling and coordination of care with patient and caregiving staff; examination of patient; review of pain and symptom management and anticipatory guidance. Unable to speak with daughter on 01/31/2020 and spoke with daughter at length on 02/01/2020 for additional history, supportive listening, review of palliative care services as well as philosophy, and progression of dementia. Questions answered and addressed with daughter. Requested copy of LIAT paperwork from daughter. Disclaimer: The chart note was formulated using voice recognition technology and unfortunately sound alike errors may occur.
== END 2020-01-31 14:01 | disposition home or self-care (01) ==
LOC: PC 14:00
PROVIDERS: ATTEND Nurse Practitioner Family
DX: Z51.5 Encounter for palliative care (principal); M89.49 Other hypertrophic osteoarthropathy, multiple sites; I11.0 Hypertensive heart disease with heart failure; I50.9 Heart failure, unspecified; F03.91 Unspecified dementia, unspecified severity, with behavioral disturbance; G47.00 Insomnia, unspecified; I25.810 Atherosclerosis of coronary artery bypass graft(s) without angina pectoris; I48.91 Unspecified atrial fibrillation; N40.0 Benign prostatic hyperplasia without lower urinary tract symptoms; F10.21 Alcohol dependence, in remission; Z91.81 History of falling; Z87.891 Personal history of nicotine dependence; Z66 Do not resuscitate
CPT/HCPCS: 99344

== ENCOUNTER 2020-02-15 12:40 | Outpatient (CLI) | payer MEDICARE ==
--- NOTE | 2020-02-15 16:50 | CONSULTATION NOTE ---
Palliative Care Follow Up - Referral Referring Provider: LESLEY Singh Time of Visit: Initated 1240 Referral setting: Adult Family Home Referral Reason: Dementia with behavioral disturbances/OA pain - Information Sources Records reviewed: Previous records reviewed History/Review of Systems obtained from: Patient, Caregiver Exam limitations: Clinical condition (Cognitive impairment due to dementia) - History of Present Illness Update Brief HPI Update: This is an 84-year-old gentleman who was seen in follow-up today at [facility] due to dementia with behavioral disturbances and osteoarthritic pain more specifically to his right shoulder. The staff at the adult [facility] had previously written reporting that the patient has been displaying evidence of sundowning behavior. He was becoming more agitated in the evenings with frequent awakenings and underlying history of insomnia. His quetiapine was increased to 50 mg at bedtime. In discussion with the caregiver, Jovany today reports that the patient has been doing better in the evenings with no reports of nighttime awakenings due to behavior. The patient himself is also reporting that he is sleeping well. As the weather is changing more towards winter with the mornings being colder, the patient has noticed increased stiffness to his right shoulder in the morning. He continues to receive routine acetaminophen and presently is receiving routine application of Diclofenac gel To his right shoulder and bilateral knees daily. This is provided improvement of the patient's underlying symptoms and as the day progresses improved ROM of his shoulder. The patient does present to be able to walk more independently but has a fear of falling. Patient is seen in the common area in his wheelchair. He is able to self propel. No evidence of acute distress. Past Medical History: Patient has a past medical history of congestive heart failure with ejection fraction 55 to 60%, hypertension, coronary artery disease, [place], atrial fibrillation, dementia, subdural hematoma with evacuation at age 17, BPH, anxiety, osteoarthritis, insomnia, status post CABG. Social History - Living Situation Living arrangement: Adult family home Support System: Patient is from his . The patient and his have 6 children together. The patient's daughter, Fatoumata is his DPOA with contact number . Medications/Allergies - Medications Home Medications: Ambulatory Orders Medication Instructions Recorded Confirmed Losartan Potassium 50 mg PO BID 09/13/15 02/01/20 Metoprolol Tartrate 37.5 mg PO BID 09/13/15 02/01/20 amLODIPine [Norvasc] 10 mg PO DAILY 09/13/15 02/01/20 acetaZOLAMIDE [Diamox Sequels] 500 mg PO BID 01/10/16 02/01/20 Aspirin 81 mg PO DAILY 06/27/19 02/01/20 Calcium Carbonate [Tums (Calcium 1,000 mg PO BID 06/27/19 02/01/20 Carbonate 500mg)] Diclofenac Sodium [Voltaren] TOP DAILY 06/27/19 06/27/19 Furosemide [Lasix] 20 mg PO DAILY 06/27/19 02/01/20 Nitroglycerin 0.4 mg SL DAILY PRN 06/27/19 02/01/20 Isosorbide Mononitrate ER [Imdur] 60 mg PO DAILY #30 tablet 08/21/19 02/01/20 Acetaminophen [Tylenol] 650 mg PO Q4HR PRN MDD NTE 3g per 02/01/20 02/01/20 24hours Magnesium Hydroxide [Milk of 30 ml PO DAILY PRN MDD If no BM in 02/01/20 02/01/20 Magnesia] 3 days Melatonin 6 mg PO QPM 02/01/20 02/01/20 QUEtiapine [SEROquel] 50 mg PO DAILY 02/01/20 02/01/20 Tamsulosin HCl [Flomax] 0.4 mg PO DAILY 02/01/20 02/01/20 - Allergies Allergies/Adverse Reactions: Allergies Allergy/AdvReac Type Severity Reaction Status Date / Time hydrochlorothiazide AdvReac Unknown Verified 02/01/20 16:51 lisinopril AdvReac Unknown Verified 02/01/20 16:51 rosuvastatin calcium * AdvReac Unknown Verified 02/01/20 16:51 [From [facility]] Review of Systems - Constitutional Constitutional: reports: Weight stable. denies: Fever - Eyes Eyes: denies: Irritation - Ears, Nose & Throat Ears, Nose & Throat: denies: Hearing aids - Cardiovascular Cardiovascular: reports: Edema. denies: Chest pain - Respiratory Respiratory: denies: Cough - Gastrointestinal Gastrointestinal: reports: Good appetite. denies: Constipation, Diarrhea - Genitourinary Genitourinary: denies: Dysuria - Musculoskeletal Musculoskeletal: reports: Stiffness, Limited range of motion (right shoulder), Joint pain (right shoulder--improved), Assistive devices - Integumentary Integumentary: reports: Dryness - Neurological Neurological: reports: General weakness, Memory problems - Psychiatric Psychiatric: reports: Behavior disturbances - Endocrine Endocrine: denies: Diabetes type 2 - All Other Systems All Other Systems: reports: Reviewed and negative (ROS supplemented by patient's caregiver as a poor historian due to dementia.) Physical Exam - Vital Signs Pulse Rate: 62 O2 Saturation: 98 (on RA at rest) Blood Pressure: 140/72 (left wrist cuff) - Physical Exam General Appearance: positive: No acute distress, Alert, Other (OOB in wheelchair, well groomed) Eyes Bilateral: positive: Normal inspection ENT: positive: No signs of dehydration Neck: positive: Trachea midline Cardiovascular: positive: Regular rate & rhythm, No murmur Respiratory: positive: No respiratory distress, Breath sounds nml Abdomen: positive: Non-tender, Soft, Nml bowel sounds, Other (+round) Skin: positive: Dryness Extremities: positive: Pedal edema (BLE edema +trace), Other (Decreased ROM with right shoulder past 90 degrees with noted crepitus with improved active ROM then last evaluation; strength BUE equal and symmetric) Neurologic/Psychiatric: positive: Mood/affect nml, Disoriented to place, Other (soft speaking voice, calm and cooperative) Palliative Care - POLST Patient has POLST: Yes POLST Status: DNR, Comfort Measures Pain: Pain improved (right shoulder) Nausea: None Anorexia: None Sleep: Sleep improved Constipation: No Performance Status: Patient has a history of falls. Uses a wheelchair to self propel in the adult family home able to self feed. Requires assistance with ADLs regarding self- care. PPS 50% - Palliative Care Discussion: The patient has experienced a slow cognitive decline over the last several years. He recently had been displaying evidence of sundowning behavior at the adult family home with delusions and agitation. His quetiapine dosage was increased to 50 mg nightly and per caregiving report this has resulted in improvement of his behaviors with out nighttime awakenings. The patient has a history of osteoarthritis and will specifically report discomfort to his right shoulder. His overall level of comfort has improved with initiation of routine Voltaren gel application to his right shoulder and bilateral knees daily. The patient does express a desire to be able to ambulate independently with out feeling unsteady however, it is likely difficult to realize given his underlying dementia and use of appropriate fall precautions. Impression and Recommendations - Palliative Care Impression: This is a leigh ann 84-year-old gentleman with a significant cardiac history with underlying pain due to osteoarthritis as well as dementia with behavioral disturbances. His sundowning behavior has improved and subsequently resolved with increase of quetiapine nightly. He has improved range of motion with his right shoulder with routine application of Voltaren gel and continued administration of acetaminophen routinely. Palliative care to continue provide supportive listening, pain and symptom management and anticipatory guidance. Recommendations/Counseling Done: 1. Osteoarthritis, multiple joints specifically right shoulder. Presently on acetaminophen twice daily. Has benefited with routine Voltaren gel application to his right shoulder as well as bilateral knees once daily. If needed, may increase Voltaren gel applications of continues to be effective up to a total of 32 g daily of Voltaren gel to all joints. Fall precautions. Continue to monitor the patient's pain response and adjust the pain medicine regimen accordingly. 2. Dementia with behavioral disturbances. Chronic. Progressive. Likely vascular in nature. Improvement of sundowning behaviors with increase of quetiapine to 50 mg nightly. No further dose adjustments of quetiapine at the present time but if there is room to titrate upwards based on the patient's symptoms and response. On no disease modifying agents. Given the patient's age gradual decline is expected. 3. Insomnia. Longstanding history. Improvement of overall sleep quality with increase of quetiapine due to sedative properties. Continue melatonin 6 mg nightly. Continue to monitor. Time Spent: CPT 41003 Plan of care reviewed with caregiverJovany with questions answered and addressed. Message left for patient's daughter/DPFatoumata HERNANDEZ at [phone] updating regarding patient's present clinical status and positive response to recent medication adjustments. Awaiting call back if further questions or concerns. Disclaimer: The chart note was formulated using voice recognition technology and unfortunately sound alike errors may occur.
== END 2020-02-15 12:41 | disposition home or self-care (01) ==
LOC: PC 12:40
PROVIDERS: ATTEND Nurse Practitioner Family
DX: Z51.5 Encounter for palliative care (principal); F03.91 Unspecified dementia, unspecified severity, with behavioral disturbance; M89.49 Other hypertrophic osteoarthropathy, multiple sites; G47.00 Insomnia, unspecified; I11.0 Hypertensive heart disease with heart failure; I50.9 Heart failure, unspecified; I25.810 Atherosclerosis of coronary artery bypass graft(s) without angina pectoris; Z66 Do not resuscitate
CPT/HCPCS: 99348

== ENCOUNTER 2020-03-07 12:50 | Outpatient (CLI) | payer MEDICARE ==
--- NOTE | 2020-03-07 17:42 | CONSULTATION NOTE ---
Palliative Care Follow Up - Referral Referring Provider: LESLEY Singh Time of Visit: In 1250 Referral setting: Adult Family Home Referral Reason: OA Pain/Dementia with behavioral disturbances - Information Sources Records reviewed: Previous records reviewed History/Review of Systems obtained from: Patient, Caregiver Exam limitations: Clinical condition (Cognitive impairment due to dementia) - History of Present Illness Update Brief HPI Update: This is an 84-year-old gentleman who was seen in follow-up today at [facility] due to dementia with behavioral disturbances and osteoarthritic pain to bilateral shoulders and left hip. Since last evaluation the patient had a verbal outburst during Thanksgiving and took it upon himself to leave the home and walk 2 blocks away. The patient himself does recall some of the events and reports that "got my shoes on and walked." Unfortunately, police services had to be called per facility director, Amita and the patient returned home. The patient himself relays that there are instances that he will "get something in my head that I need to follow through on." Facility staff report that the patient was upset that Thanksgiving dinner was taking too long and he felt that he was "being starved." His quetiapine dosage was adjusted and he is presently on 25 mg in the morning and 50 mg in the evening with quetiapine 25 mg to be available once daily as needed for anxiety and/or agitation. The patient has demonstrated some increased paranoia and confusion. He does have a history of delusions such as believing that there are ants in his room. He reports some flank pain and no recent history of urinary tract infection. The patient reports today that he had increased pain to his left hip. He does find assistance with Voltaren gel application to affected joints. Amita, facility director reports that the patient has been told in the past that his knees are "[id number]" and orthopedics had previously recommended total knee replacements but this was declined by the patient's family due to the patient's advancing dementia and risk of surgery.. Patient is seen out of bed in the dining table in his wheelchair. He has just completed lunch which he has consumed in its entirety. No evidence of acute distress. Social History - Living Situation Living arrangement: Adult family home Support System: Patient is a past medical history of congestive heart failure with ejection fraction 55 to 60%, hypertension, coronary artery disease, CT, atrial fibrillation, dementia, subdural hematoma with evacuation at age 17, BPH, anx iety, osteoarthritis, insomnia, status post CABG. Medications/Allergies - Medications Home Medications: Ambulatory Orders Medication Instructions Recorded Confirmed Losartan Potassium 50 mg PO BID 09/13/15 02/01/20 Metoprolol Tartrate 37.5 mg PO BID 09/13/15 02/01/20 amLODIPine [Norvasc] 10 mg PO DAILY 09/13/15 02/01/20 Aspirin 81 mg PO DAILY 06/27/19 02/01/20 Calcium Carbonate [Tums (Calcium 1,000 mg PO BID 06/27/19 02/01/20 Carbonate 500mg)] Diclofenac Sodium [Voltaren] TOP DAILY 06/27/19 06/27/19 Furosemide [Lasix] 20 mg PO DAILY 06/27/19 02/01/20 Nitroglycerin 0.4 mg SL DAILY PRN 06/27/19 02/01/20 Isosorbide Mononitrate ER [Imdur] 60 mg PO DAILY #30 tablet 08/21/19 02/01/20 Acetaminophen [Tylenol] 650 mg PO Q4HR PRN MDD NTE 3g per 02/01/20 02/01/20 24hours Magnesium Hydroxide [Milk of 30 ml PO DAILY PRN MDD If no BM in 02/01/20 02/01/20 Magnesia] 3 days Melatonin 6 mg PO QPM 02/01/20 02/01/20 QUEtiapine [SEROquel] 50 mg PO QPM 02/01/20 02/01/20 Tamsulosin HCl [Flomax] 0.4 mg PO DAILY 02/01/20 02/01/20 Acetaminophen [Aphen] 1,000 mg PO BID 03/07/20 03/07/20 DULoxetine [Cymbalta] 20 mg PO DAILY 03/07/20 03/07/20 QUEtiapine [SEROquel] 25 mg PO DAILY 03/07/20 03/07/20 - Allergies Allergies/Adverse Reactions: Allergies Allergy/AdvReac Type Severity Reaction Status Date / Time hydrochlorothiazide AdvReac Unknown Verified 02/01/20 16:51 lisinopril AdvReac Unknown Verified 02/01/20 16:51 rosuvastatin calcium * AdvReac Unknown Verified 02/01/20 16:51 [From Crestor] Review of Systems - Constitutional Constitutional: reports: Weight stable. denies: Fever - Eyes Eyes: denies: Irritation - Ears, Nose & Throat Ears, Nose & Throat: denies: Dry mouth - Cardiovascular Cardiovascular: reports: Edema. denies: Chest pain - Respiratory Respiratory: denies: Wheezing - Gastrointestinal Gastrointestinal: reports: Good appetite. denies: Constipation, Diarrhea - Genitourinary Genitourinary: reports: Frequency. denies: Hematuria, Incontinence - Musculoskeletal Musculoskeletal: reports: Stiffness, Limited range of motion (right shoulder), Joint pain (b/l shoulders with r>l; left hip pain reported today), Assistive devices - Integumentary Integumentary: reports: Dryness - Neurological Neurological: reports: General weakness, Memory problems - Psychiatric Psychiatric: reports: Delusions, Behavior disturbances - Hematologic/Lymphatic Hematologic/Lymph: Other (No history of recurrent infections) - All Other Systems All Other Systems: reports: Reviewed and negative (ROS supplemented by patient's caregiver as a poor historian due to dementia.) Physical Exam - Vital Signs Temperature: 37.1 C Pulse Rate: 56 O2 Saturation: 98 (on RA at rest) Blood Pressure: 162/90 (left wrist cuff) - Physical Exam General Appearance: positive: No acute distress, Alert, Other (OOB in wheelchair, well groomed) Eyes Bilateral: positive: Normal inspection ENT: positive: No signs of dehydration Neck: positive: Trachea midline Cardiovascular: positive: Regular rate & rhythm, Systolic murmur (soft, 1/6 CATHI) Respiratory: positive: No respiratory distress, Breath sounds nml Abdomen: positive: Non-tender, Soft, Nml bowel sounds, Other (+round) Skin: positive: Dryness Extremities: positive: Pedal edema (BLE edema +trace), Other (Decreased ROM with right shoulder with ; strength BUE equal and symmetric; B/l shoulders nontender to palpation; left hip nontender to palpation) Neurologic/Psychiatric: positive: Mood/affect nml, Disoriented to place, Other (soft speaking voice with mumbling at times, calm and cooperative) Palliative Care - POLST Patient has POLST: Yes POLST Status: DNR, Comfort Measures Pain: Pain improved (see HPI, generalized OA pain) Anorexia: None Dyspnea: None Depression: Mild (1-3) (reports to being sad at times) Sleep: Variable sleep pattern Constipation: No Performance Status: Patient has a history of falls. Uses a wheelchair to self-propelled the adult family home. Able to self feed. Requires assistance with ADLs regarding self- care. PPS 50% - Palliative Care Discussion: The patient had an agitated outburst on that resulted in him in exiting the adult family home. No injuries ensued and the patient was upset for several days after with facility staff. He has had some increased confusion noted by facility staff with some increased urinary frequency and would be beneficial to rule out a urinary tract infection although,This may be symptoms of his underlying dementia. He does have a history of delusions and paranoia that are longstanding that is supplemented by both the patient's daughter, Fatoumata as well as the facility director, Amita. The patient's present delusion is that there are ants in his room that he is able to visualize. The patient has a history of osteoarthritis and today reports to having discomfort to his life left hip earlier in the morning. He is getting routine acetaminophen as well as Voltaren gel to affected joints with some noted relief. However, the patient would benefit from additional pain management given in the history that he previously was recommended knee replacement in the past. The patient reports some underlying sadness that is intermittent. He is open to a trial of an antidepressant medication that would be multifactorial with management of his pain as well as his mood. Impression and Recommendations - Palliative Care Impression: This is a leigh ann 84-year-old gentleman with a significant cardiac history with underlying pain due to osteoarthritis as well as dementia with behavioral disturbances. He has a history of periodic outburst and recently this occurred last week requiring dose adjustment of his quetiapine with overall improvement. He continues to have reports of intermittent underlying osteoarthritic pain that is limiting his function and would benefit from further medication adjustment. Palliative care to continue provide support port, pain and symptom management as well as anticipatory guidance. Recommendations/Counseling Done: 1. Osteoarthritis, multiple joints involved. Given the patient is agreeable and after discussion with the patient's daughter/LIAT, Fatoumata will initiate duloxetine 20 mg daily for osteoarthritic pain as well as mood stabilization and mild a mild depression. Patient is agreeable as well is the patient's daughter. Continue acetaminophen 1000 mg twice daily routinely. Continue routine Voltaren gel application to right shoulder as well as bilateral knees as ordered. Fall precautions. Continue to monitor the patient's pain response and adjust the pain regimen accordingly. 2.Acute mental status changes with increased confusion. Patient reports increased urinary frequency. Obtain UA with microscopy and culture if indicated to evaluate for urinary tract infection. Provided lab slip and specimen cup at adult [facility] home to collect specimen and drop off at [facility] lab. Will follow up with urinalysis results. 3.Hypertension. Blood pressure noted to be 162/90 today. No cardiac complaints. Patient is presently on losartan, metoprolol, amlodipine, Lasix and Imdur. May benefit in the future for dose adjustments of antihypertensive medication if continued elevation of blood pressure weighing risk versus benefit. Goal blood pressure less than 150/90 given the patient's age and wish to decrease risk of falls and orthostatic hypotension. 4. Dementia with behavioral disturbances. Chronic. Progressive. Likely vascular nature. Continue quetiapine 25 mg in the morning and 50 mg in the evening. No further dose adjustment of quetiapine at this time but there is room to titrate up if needed based on the patient's symptoms. Initiate duloxetine 20 mg daily for mood stabilization and some underlying reports of depression. Reviewed at length with daughter side effects, purpose, and that time to see benefit is approximately 2 to 3 weeks with understanding verbalized. Initially will send prescription of duloxetine to [facility] pharmacy and if positive response and will continue long-term will send to mail order pharmacy. Patient is presently on no disease modifying agents for his dementia. Given the patient's of age a gradual decline is expected. Time Spent: CPT 11182 Plan of care reviewed with caregiver Yun on site as well as facility director, Amita. Lengthy discussion with patient's daughter/DPDAVID Ham via phone at [phone] regarding the patient's recent complaints and plan of care for management. Questions answered and addressed. Disclaimer: The chart note was formulated using voice recognition technology and unfortunately sound alike errors may occur.
== END 2020-03-07 12:51 | disposition home or self-care (01) ==
LOC: PC 12:50
PROVIDERS: ATTEND Nurse Practitioner Family
DX: Z51.5 Encounter for palliative care (principal); M19.012 Primary osteoarthritis, left shoulder; M19.011 Primary osteoarthritis, right shoulder; M16.12 Unilateral primary osteoarthritis, left hip; R41.0 Disorientation, unspecified; I11.0 Hypertensive heart disease with heart failure; I50.9 Heart failure, unspecified; F03.91 Unspecified dementia, unspecified severity, with behavioral disturbance; I48.91 Unspecified atrial fibrillation; I25.810 Atherosclerosis of coronary artery bypass graft(s) without angina pectoris; Z66 Do not resuscitate
CPT/HCPCS: 99349

== ENCOUNTER 2020-03-08 07:00 | Outpatient (CLI) | payer MEDICARE ==
[2020-03-08 18:56] LABS: BILIRUBIN,URINE NEGATIVE (NEGATIVE); GLUCOSE, URINE (UA) NEGATIVE (NEGATIVE); KETONES,URINE (UA) NEGATIVE (NEGATIVE); LEUKOCYTE ESTERASE, URINE NEGATIVE (NEGATIVE); NITRITE,URINE NEGATIVE (NEGATIVE); OCCULT BLOOD,URINE NEGATIVE (NEGATIVE); PROTEIN,URINE NEGATIVE (NEGATIVE); UROBILINOGEN,URINE 0.2 (NORMAL) E.U./dL (NORMAL)
[2020-03-08 18:59] LABS: CLARITY,URINE CLEAR (CLEAR)
== END 2020-03-08 23:59 | disposition home or self-care (01) ==
LOC: LAB.R 07:00
PROVIDERS: ATTEND Nurse Practitioner Family
DX: R30.0 Dysuria (principal)
CPT/HCPCS: 81001; 81003; 87086

== ENCOUNTER 2020-04-03 14:25 | Outpatient (CLI) | payer MEDICARE ==
--- NOTE | 2020-04-03 17:42 | CONSULTATION NOTE ---
Palliative Care Follow Up - Referral Referring Provider: LESLEY Singh Time of Visit: 7117-7015 Referral setting: Adult Family Home Referral Reason: OA Pain Management/Dementia with behavioral disturbances - Information Sources Records reviewed: Previous records reviewed History/Review of Systems obtained from: Patient, Caregiver (Jovany and Nahid) Exam limitations: Clinical condition (Cognitive impairment due to dementia) - History of Present Illness Update Brief HPI Update: This is a leigh ann 84-year-old gentleman who was seen in follow-up today at [facility] due to dementia with behavioral disturbances, chronic osteoarthritic pain to bilateral shoulders and left hip. When last evaluation the patient was initiated on duloxetine 20 mg daily for osteoarthritic pain and underlying depression. He has tolerated this transition well and per facility press operator apprentice, Amita as well as his caregiver within the adult family home the patient's fluctuation in mood swings have greatly reduced. The patient's daughter, Fatoumata also reports to noticing a disc difference as does her sister with the patient's overall mood and demeanor since initiation. He continues to require port chronic joint pain most specifically to his bilateral shoulders. He is on routine Voltaren gel and acetaminophen. On last evaluation he was initiated on half a tablet of hydrocodone/acetaminophen for pain and was initiated on senna 8.6 mg nightly for prevention of constipation. The patient's report since initiation of this routine pain medication change on 03/21 is that he continues to have "good days and bad days." He has periods where his pain will be improved since initiation and other times he has reports of increased pain. Per facility caregiver he reports that the patient himself will tend to report increased pain in the evening after increased activity. The patient continues to self propel in a wheelchair in the adult family home. The patient is seen out of bed in his wheelchair. Initially, he greeted this provider at the door. He appears calm and comfortable with no evidence of acute distress. Past Medical History: Patient has a past medical history of congestive heart failure with ejection fraction 35 to 60%, hypertension, coronary artery disease, [place], atrial fibrillation, dementia, subdural hematoma with evacuation at age 17, BPH, anxiety, osteoarthritis, insomnia, status post CABG. Social History - Living Situation Living arrangement: Adult family home Support System: Patient is from his . The patient is have 6 children together. The patient's daughter, Fatoumata is his DPOA with contact #[phone] when she lives locally in [place]. Medications/Allergies - Medications Home Medications: Ambulatory Orders Medication Instructions Recorded Confirmed Losartan Potassium 50 mg PO BID 09/13/15 02/01/20 Metoprolol Tartrate 37.5 mg PO BID 09/13/15 02/01/20 amLODIPine [Norvasc] 10 mg PO DAILY 09/13/15 02/01/20 Aspirin 81 mg PO DAILY 06/27/19 02/01/20 Calcium Carbonate [Tums (Calcium 1,000 mg PO BID 06/27/19 02/01/20 Carbonate 500mg)] Diclofenac Sodium [Voltaren] TOP DAILY 06/27/19 06/27/19 Furosemide [Lasix] 20 mg PO DAILY 06/27/19 02/01/20 Nitroglycerin 0.4 mg SL DAILY PRN 06/27/19 02/01/20 Isosorbide Mononitrate ER [Imdur] 60 mg PO DAILY #30 tablet 08/21/19 02/01/20 Acetaminophen [Tylenol] 650 mg PO Q4HR PRN MDD NTE 3g per 02/01/20 02/01/20 24hours Magnesium Hydroxide [Milk of 30 ml PO DAILY PRN MDD If no BM in 02/01/20 02/01/20 Magnesia] 3 days Melatonin 6 mg PO QPM 02/01/20 02/01/20 QUEtiapine [SEROquel] 50 mg PO QPM 02/01/20 02/01/20 Tamsulosin HCl [Flomax] 0.4 mg PO DAILY 02/01/20 02/01/20 Acetaminophen [Aphen] 1,000 mg PO DAILY 03/07/20 03/07/20 DULoxetine [Cymbalta] 20 mg PO DAILY 03/07/20 03/07/20 QUEtiapine [SEROquel] 25 mg PO DAILY 03/07/20 03/07/20 HYDROcod/ACETAM 5/325 [Manly 5/325] 1 tab PO QPM 04/04/20 04/04/20 - Allergies Allergies/Adverse Reactions: Allergies Allergy/AdvReac Type Severity Reaction Status Date / Time hydrochlorothiazide AdvReac Unknown Verified 02/01/20 16:51 lisinopril AdvReac Unknown Verified 02/01/20 16:51 rosuvastatin calcium * AdvReac Unknown Verified 02/01/20 16:51 [From Crestor] Review of Systems - Constitutional Constitutional: reports: Weight stable. denies: Fever - Eyes Eyes: denies: Irritation - Ears, Nose & Throat Ears, Nose & Throat: denies: Dry mouth - Cardiovascular Cardiovascular: reports: Edema. denies: Chest pain - Respiratory Respiratory: denies: Cough - Gastrointestinal Gastrointestinal: reports: Good appetite. denies: Constipation, Vomiting - Genitourinary Genitourinary: reports: Frequency. denies: Dysuria, Incontinence - Musculoskeletal Musculoskeletal: reports: Stiffness, Limited range of motion (right shoulder), Joint pain (b/l shoulders with r>l), Assistive devices - Integumentary Integumentary: reports: Dryness - Neurological Neurological: reports: General weakness, Memory problems - Psychiatric Psychiatric: reports: Behavior disturbances (improved with increase of quetiapine) - Hematologic/Lymphatic Hematologic/Lymph: Other (No history of recurrent infections) - All Other Systems All Other Systems: reports: Reviewed and negative (ROS supplemented by patient's caregiver as a poor historian due to dementia.) Physical Exam - Vital Signs Pulse Rate: 60 O2 Saturation: 97 (on RA) Blood Pressure: 142/70 (left upper arm) - Physical Exam General Appearance: positive: No acute distress, Alert, Other (OOB in wheelchair, well groomed) Eyes Bilateral: positive: Normal inspection ENT: positive: No signs of dehydration Neck: positive: Trachea midline Cardiovascular: positive: Regular rate & rhythm, Systolic murmur (soft, 1/6 CATHI) Respiratory: positive: No respiratory distress, Breath sounds nml. negative: Rales Abdomen: positive: Non-tender, Soft, Nml bowel sounds Skin: positive: Dryness Extremities: positive: Pedal edema (BLE edema +1), Other (Decreased ROM with right shoulder with active movement and +creptius) Neurologic/Psychiatric: positive: Mood/affect nml, Disoriented to place, Other (soft speaking voice, calm and cooperative) Palliative Care - POLST Patient has POLST: Yes POLST Status: DNR, Comfort Measures Pain: Pain unchanged (generalized OA pain) Nausea: None Anorexia: None Depression: None Anxiety: None Sleep: Variable sleep pattern (uses melatonin) Constipation: Yes, Managed Performance Status: Uses a wheelchair to self propel in the adult family home. Able to self feed. Requires assistance with ADLs regarding self-care. Has a history of falls. PPS 50% - Palliative Care Discussion: Since introduction of duloxetine the patient's lability in his moods have greatly improved per caregiving and family reports. At the present time, it is unclear this has provided additional benefit for osteoarthritic pain management at the present dose. He has tolerated the transition to duloxetine. He has a history of delusions and paranoia and since dose adjustments of his quetiapine this is also improved. As has his interactions with his daughter, Fatoumata when she comes to the facility to provide a items and handle his needs. The patient has had some noted improvement with addition of hydrocodone/acetaminophen half a tablet at bedtime however, would benefit from further titration of his hydrocodone/acetaminophen to optimize his comfort. Impression and Recommendations - Palliative Care Impression: This is a leigh ann 84-year-old gentleman with significant cardiac history with underlying pain due to osteoarthritis as well as dementia with behavioral disturbances. His lability in his mood has greatly improved with addition of duloxetine. He continues to have reports of underlying osteoarthritic pain that limits his function and would benefit from further medication adjustment with his hydrocodone/acetaminophen. He was noted to have increased lower extremity edema today without reports of discomfort. Palliative care to continue provide support, pain and symptom management as well as anticipatory guidance. Recommendations/Counseling Done: 1. Osteoarthritis, multiple joints involved. Patient has tolerated introduction of duloxetine 20 mg daily. Unclear if at the present time this is provided adequate benefit for his underlying osteoarthritic pain. However, wish to increase his hydrocodone/acetaminophen 5 mg / 325 mg from half a tab nightly to 1 tablet nightly. Continue senna 8.6 mg nightly for bowel regimen and prevention of constipation. If increase of hydrocodone/acetaminophen to 1 tablet is not providing satisfactory relief for the patient then would consider further dose adjustment with increase in duloxetine and was reviewed with joe kaur's daughter/DPOA as well as facility director, Amita via phone today. Continue acetaminophen 1000 mg in the morning. Continue acetaminophen as ordered as needed not to exceed 3 g daily from all sources. Continue routine Voltaren gel application to right shoulder as well as bilateral knees as ordered. Fall precautions. Continue to monitor the patient's pain response and adjust pain regimen accordingly to optimize comfort and function. 2. Lower extremity edema. History of congestive heart failure. Presently on furosemide 20 mg daily. Encourage elevation of lower extremities when at rest and not to always have legs in dependent Position. If blood pressure tolerates it may consider dose reduction of amlodipine in the future future as this can be contributing to lower extremity edema as well as potential dose adjustment of his furosemide from 20 mg to 30 mg daily. We will continue to monitor moving forward. 3. Dementia with behavioral disturbances. Chronic. Progressive. Likely vascular nature. Continue quetiapine 25 mg in the morning and 50 mg in the evening. No further dose adjustment of quetiapine at this time but there is room to titrate up if needed based on the patient's symptoms. Continue duloxetine 20 mg daily for mood stabilization and underlying depression. Patient is presently on no disease modifying agents for his dementia. Given the patient's of age a gradual decline is expected. Time Spent: Follow-up 2 to 3 weeks or as needed. Total time spent 30 with greater than 50% of time spent in counseling and coordination of care with patient, adult family home staff; examination of the patient; supportive listening; review of pain and symptom management and anticipatory guidance. Contacted patient's daughter/DPDAVID Ham to review plan of care with questions answered and addressed in agreement moving forward. Disclaimer: The chart note was formulated using voice recognition technology and unfortunately sound alike errors may occur.
== END 2020-04-03 14:26 | disposition home or self-care (01) ==
LOC: PC 14:25
PROVIDERS: ATTEND Nurse Practitioner Family
DX: Z51.5 Encounter for palliative care (principal); F03.91 Unspecified dementia, unspecified severity, with behavioral disturbance; M19.012 Primary osteoarthritis, left shoulder; M19.011 Primary osteoarthritis, right shoulder; M16.12 Unilateral primary osteoarthritis, left hip; F32.9 Major depressive disorder, single episode, unspecified; R60.0 Localized edema; I50.9 Heart failure, unspecified; Z79.899 Other long term (current) drug therapy; Z79.891 Long term (current) use of opiate analgesic; Z99.3 Dependence on wheelchair; Z91.81 History of falling; Z66 Do not resuscitate
CPT/HCPCS: 99349

== ENCOUNTER 2020-04-16 14:00 | Outpatient (CLI) | payer MEDICARE ==
--- NOTE | 2020-04-16 19:10 | CONSULTATION NOTE ---
Palliative Care Follow Up - Referral Referring Provider: LESLEY Singh Time of Visit: Iniated 1400 Referral setting: Adult Family [facility] Referral Reason: OA Pain Management/Dementia with behavioral disturbances - Information Sources Records reviewed: Previous records reviewed History/Review of Systems obtained from: Patient, Family (daughter/LIAT Ham), Caregiver (Nahid) Exam limitations: Clinical condition (Cognitive impairment due to dementia) - History of Present Illness Update Brief HPI Update: This is a leigh ann 84-year-old gentleman who was seen in follow-up today at [facility] due to dementia with behavioral services, chronic osteoarthritic pain to bilateral shoulders and left hip, and recent reports of increased anxiety with caregiver/her director of [facility] present. The patient continues with duloxetine 20 mg daily for osteoarthritic pain and underlying depression. Facility class 1 owner operator/caregiver Amita reports that there has been some noting of increased anxiety related to the patient's more specifically in the evenings and overnight. Overall, he has benefited from initiation of duloxetine for behaviors as well as routine Seroquel. He has reported intermittent reports of chest discomfort that is beginning in his shoulders radiating to his chest intermittently which may be a source of underlying anxiety/osteoarthritic pain from his shoulders and positioning. Staff been trying to encourage him to be in his recliner chair when taking naps and not remaining in his wheelchair for adequate support. His movements to his bilateral shoulders appear more stiff. Today however, the patient denies complaints of chest pain. On last evaluation 04/03/2020 his hydrocodone/acetaminophen 5/325 mg was increased to a whole tablet at bedtime. This provided some relief. He continues on Voltaren gel and acetaminophen routinely as ordered. He is also on senna 8.6 mg nightly for prevention of constipation is typically having a bowel movement daily to every other day with no reports of straining. Patient is seen out of bed in his wheelchair. Is calm and conversant with no evidence of acute distress. Past Medical History: Patient has a past medical history of congestive heart failure with ejection fraction 35 to 60%, hypertension, coronary artery disease, [place], atrial fibrillation, dementia, subdural hematoma with evacuation at age 17, BPH, anxiety, osteoarthritis, insomnia, status post CABG. Social History - Living Situation Living arrangement: Adult [facility] Support System: Patient is from his . The patient and his have 6 children together. The patient's daughter, Fatoumata is his DPOA with contact [phone]. Patient is desiring a haircut as his hair is never been this long in the past. Facility director, Amita reports that once this residents of the adult family home have been fully vaccinated with the Covid vaccine and she will look into getting further services back into the setting such as a butler/hairstylist. Medications/Allergies - Medications Home Medications: Ambulatory Orders Medication Instructions Recorded Confirmed Losartan Potassium 50 mg PO BID 09/13/15 04/16/20 Metoprolol Tartrate 37.5 mg PO BID 09/13/15 04/16/20 amLODIPine [Norvasc] 10 mg PO DAILY 09/13/15 04/16/20 Aspirin 81 mg PO DAILY 06/27/19 04/16/20 Calcium Carbonate [Tums (Calcium 1,000 mg PO BID 06/27/19 04/16/20 Carbonate 500mg)] Diclofenac Sodium [Voltaren] TOP DAILY 06/27/19 06/27/19 Furosemide [Lasix] 20 mg PO DAILY 06/27/19 04/16/20 Nitroglycerin 0.4 mg SL DAILY PRN 06/27/19 04/16/20 Isosorbide Mononitrate ER [Imdur] 60 mg PO DAILY #30 tablet 08/21/19 04/16/20 Acetaminophen [Tylenol] 650 mg PO Q4HR PRN MDD NTE 3g per 02/01/20 04/16/20 24hours Magnesium Hydroxide [Milk of 30 ml PO DAILY PRN MDD If no BM in 02/01/20 04/16/20 Magnesia] 3 days Melatonin 6 mg PO QPM 02/01/20 04/16/20 QUEtiapine [SEROquel] 50 mg PO QPM 02/01/20 04/16/20 Tamsulosin HCl [Flomax] 0.4 mg PO DAILY 02/01/20 04/16/20 Acetaminophen [Aphen] 1,000 mg PO DAILY 03/07/20 04/16/20 DULoxetine [Cymbalta] 30 mg PO DAILY 03/07/20 03/07/20 QUEtiapine [SEROquel] 25 mg PO DAILY 03/07/20 04/16/20 HYDROcod/ACETAM 5/325 [[place] 5/325] 1 tab PO QPM 04/04/20 04/16/20 Hydrocodone/Acetaminophen [[facility] 1 tab PO DAILY PRN 04/16/20 04/16/20 5-325 Tablet] - Allergies Allergies/Adverse Reactions: Allergies Allergy/AdvReac Type Severity Reaction Status Date / Time hydrochlorothiazide AdvReac Unknown Verified 02/01/20 16:51 lisinopril AdvReac Unknown Verified 02/01/20 16:51 rosuvastatin calcium * AdvReac Unknown Verified 02/01/20 16:51 [From Crestor] Review of Systems - Constitutional Constitutional: reports: Fatigue (napping more during the day), Weight stable. denies: Fever - Eyes Eyes: denies: Irritation - Ears, Nose & Throat Ears, Nose & Throat: denies: Dry mouth - Cardiovascular Cardiovascular: reports: Chest pain (see HPI for details), Edema. denies: Palpitations, Lightheadedness - Respiratory Respiratory: denies: Cough - Gastrointestinal Gastrointestinal: reports: Good appetite. denies: Constipation - Genitourinary Genitourinary: denies: Dysuria - Musculoskeletal Musculoskeletal: reports: Stiffness, Limited range of motion (right shoulder), Joint pain (b/l shoulders with r>l), Assistive devices - Integumentary Integumentary: reports: Dryness - Neurological Neurological: reports: General weakness, Memory problems - Psychiatric Psychiatric: reports: Depression, Anxiety, Behavior disturbances (controlled with quetiapine) - Endocrine Endocrine: denies: Diabetes type 2 - Hematologic/Lymphatic Hematologic/Lymph: Other (No history of recurrent infections) - All Other Systems All Other Systems: reports: Reviewed and negative (ROS supplemented by patient's caregiver as a poor historian due to dementia.) Physical Exam - Vital Signs Temperature: 36.6 C Pulse Rate: 54 O2 Saturation: 97 Blood Pressure: 138/62 (left arm sitting) - Physical Exam General Appearance: positive: No acute distress, Alert, Other (OOB in wheelchair, well groomed) Eyes Bilateral: positive: Normal inspection ENT: positive: No signs of dehydration Neck: positive: Trachea midline Cardiovascular: positive: Bradycardia, Systolic murmur (soft, 1/6 CATHI) Respiratory: positive: No respiratory distress, Breath sounds nml. negative: Rales Abdomen: positive: Non-tender, Soft, Nml bowel sounds Skin: positive: Dryness Extremities: positive: Pedal edema (BLE edema +1 (baseline)), Other (Decreased ROM with right shoulder with active movement and +creptius) Neurologic/Psychiatric: positive: Mood/affect nml, Disoriented to place, Other ( calm and cooperative) Palliative Care - POLST Patient has POLST: Yes POLST Status: DNR, Comfort Measures Pain: Pain unchanged (generalized OA pain) Tiredness/Fatigue: Mild (1-3) Nausea: None Anorexia: None Dyspnea: None Anxiety: Mild (1-3) (see HPI) Sleep: Variable sleep pattern (uses melatonin) Constipation: Yes, Managed Performance Status: PPS 50% - Palliative Care Discussion: Staff have been noticing some increased undercurrents of anxiety with reported intermittent chest pain that appears to be due to underlying osteoarthritis as the discomfort will start at his shoulders and then radiate to his chest. This is typically caused due to positioning And is relieved with repositioning or support. Staff been attempting to encourage the patient to take naps in a recliner with his lower legs elevated which has been effective in reducing chest discomfort as well as reduction of lower extremity edema. He continues to report generalized OA pain and has tolerated increase of hydrocodone/acetaminophen from half a tablet to 1 full tablet at bedtime. Will initiate hydrocodone/acetaminophen 5/325 to be administered once daily as needed for any breakthrough pain and would benefit from further dose adjustment of his duloxetine and daughter/DPOA in agreement as the ultimate goal is for the patient's comfort to be improved and to have pain reduction. Reeducated the patient and caregiver/facility class 1 owner operator Amita in setting expectations that the patient will not have full relief, but should be functional in his abilities regarding his pain.. Impression and Recommendations - Palliative Care Impression: This is a leigh ann 84-year-old gentleman significant cardiac history with underlying pain due to osteoarthritis, increased anxiety, as well as dementia with behavioral disturbances. Some of his increased shoulder pain and chest pain are likely due to positioning as well as underlying anxiety as there is resolution with repositioning or behavioral modifications with his underlying anxiety. He would benefit from further dose adjustment of his duloxetine. He continues to have reports of underlying osteoarthritic pain that limits his function with increased stiffness and would again, benefit from dose adjustment of duloxetine in addition of as needed dosing of hydrocodone/acetaminophen. Palliative care to continue provide support, pain and symptom management as well as anticipatory guidance. Recommendations/Counseling Done: 1. Anxiety. Staff reporting increased notation of anxiety behaviors and this may be contributing to some of his chest complaints He would benefit from increase of duloxetine from 20 mg to 30 mg daily. Continue to provide support regarding underlying anxiety and redirect as able. We will continue to monitor. Obtain BMP at next visit to evaluate electrolyte such as sodium for risk of hyponatremia and follow with results. 2. Chest pain. Intermittent. In the setting of anxiety and osteoarthritic pain to the shoulders that is radiating to the chest. Has benefited from of repositioning for reduction of discomfort with use of a recliner versus his wheelchair for napping which alleviates his chest discomfort and shoulder discomfort. Continue to encourage napping in recliner. Patient does have a significant cardiac history and remains on Imdur 60 mg. Reviewed signs and symptoms that would warrant EMS evaluation and has nitroglycerin in the adult family home. Continue to monitor. 3. Osteoarthritis, multiple joints involved. Increase duloxetine to 20 mg to 30 mg daily. Continue hydrocodone/acetaminophen 5 mg / 325 mg 1 tablet nightly and initiate hydrocodone/acetaminophen 5 mg / 325 mg 1 tablet daily as needed for breakthrough pain medication. Continue senna 8.6 mg nightly for bowel regimen and prevention of constipation. Continue acetaminophen 1000 mg in the morning. Continue acetaminophen as ordered as needed for pain not to exceed 3 g daily from all sources. Continue routine Voltaren gel application to right shoulder as well as bilateral knees as ordered. Fall precautions. Continue to monitor the patient's pain response and adjust pain regimen accordingly to optimize comfort and function. 4. Insomnia. Underlying anxiety contributing and once further controlled would expect improvement of insomnia symptoms. Presently on melatonin 6 mg nightly and consider dose reduction as this may cause opposite effect with alertness overnight then sedation. Has a longstanding history of insomnia. 5. Dementia with behavioral disturbances. Chronic. Progressive. Likely vascular nature. Met. Continue quetiapine 20 mg in the morning and 50 mg in the evening. Continue duloxetine 30 mg daily for mood stabilization and underlying anxiety depression. Patient is on no disease modifying agents for his dementia. Given the patient's advanced age a gradual decline is expected. Time Spent: F/u 4-6 weeks or PRN. Plan of care reviewed with daughter/DPOA Fatoumata via phone with patient, and caregiver/facility class 1 owner operator Amita presents with understanding verbalized in agreement to proceed with dose increase of duloxetine for further management of symptoms. Ultimate goal is for comfort within the facility environment. Questions answered and addressed. Disclaimer: The chart note was formulated using voice recognition technology and unfortunately sound alike errors may occur.
== END 2020-04-16 14:01 | disposition home or self-care (01) ==
LOC: PC 14:00
PROVIDERS: ATTEND Nurse Practitioner Family
DX: Z51.5 Encounter for palliative care (principal); F41.9 Anxiety disorder, unspecified; F32.9 Major depressive disorder, single episode, unspecified; R07.89 Other chest pain; M89.49 Other hypertrophic osteoarthropathy, multiple sites; G47.00 Insomnia, unspecified; F03.91 Unspecified dementia, unspecified severity, with behavioral disturbance; Z66 Do not resuscitate
CPT/HCPCS: 99349

== ENCOUNTER 2020-05-03 | Outpatient (CLI) | payer MEDICARE ==
--- NOTE | 2020-05-03 18:06 | CONSULTATION NOTE ---
Palliative Care Follow Up - Referral Referring Provider: LESLEY Singh Time of Visit: Initated 820 Referral setting: Adult Family Home Referral Reason: OA chronic pain/Dementia with behavior/Anxiety - Information Sources Records reviewed: Previous records reviewed History/Review of Systems obtained from: Patient, Caregiver (caregivers Nahid and Yun) Exam limitations: Clinical condition (Dementia) - History of Present Illness Update Brief HPI Update: This is a leigh ann 84-year-old gentleman who was seen in follow-up today at [facility] due to dementia with behavioral disturbances, chronic osteoarthritic pain to bilateral shoulders and left hip, and increased anxiety. Last evaluation due to increased notation of anxiety behaviors as well as his underlying osteoarthritic pain his duloxetine was increased from 20 mg to 30 mg. He also was initiated on as needed hydrocodone/acetaminophen 5 mg / 325 mg tablet as needed for breakthrough pain. The patient has tolerated this transition well. Staff report that he is getting up out of his wheelchair more during the day indicating that his pain is better controlled. He has taken the breakthrough hydrocodone/acetaminophen a few times since initiation. However, at other times he will decline the hydrocodone/acetaminophen if offered after initially requesting it. Staff do report that he continues with issues with insomnia. This has been an ongoing issue since he first moved into the adult family home and longstanding per the daughter's report as well. Last night however, he slept through the entire night. Typically he will get up in the middle the night thinking that it is the morning and requests coffee and that it is time to get up. Most the time the patient is read directable during these times but sometimes he is not. He is presently on melatonin 6 mg nightly Patient does have some lower extremity edema that appears to be at baseline. The patient's daughter/Fatoumata JOSUE reports that she is requested to other family members to decrease salty food items that they are bringing to the patient. Family members tend to bring the patient food as this has been enjoyment for the him. The patient is seen out of bed in his wheelchair sitting at the dining room table. He is just completed his third serving of waffles and is in a jovial mood. No evidence of acute distress. Past Medical History: Patient has a past medical history of congestive heart failure with ejection fraction 35 to 60%, hypertension, coronary artery disease, [place], atrial fibrillation, dementia, subdural hematoma with evacuation at age 17, BPH, anxiety, osteoarthritis, insomnia, status post CABG. Social History - Living Situation Living arrangement: Adult family home Support System: Patient is from his . The patient and his have 6 children together. The patient's daughter, Fatoumata is his DPOA with contact number [phone]. The patient was previously residing at [facility] but he remained isolated in his room and this was not a good fit. He then transition to [facility] where he is social which is his baseline personality. Medications/Allergies - Medications Home Medications: Ambulatory Orders Medication Instructions Recorded Confirmed Losartan Potassium 50 mg PO BID 09/13/15 04/16/20 Metoprolol Tartrate 37.5 mg PO BID 09/13/15 04/16/20 amLODIPine [Norvasc] 10 mg PO DAILY 09/13/15 04/16/20 Aspirin 81 mg PO DAILY 06/27/19 04/16/20 Calcium Carbonate [Tums (Calcium 1,000 mg PO BID 06/27/19 04/16/20 Carbonate 500mg)] Diclofenac Sodium [Voltaren] TOP DAILY 06/27/19 06/27/19 Furosemide [Lasix] 20 mg PO DAILY 06/27/19 04/16/20 Nitroglycerin 0.4 mg SL DAILY PRN 06/27/19 04/16/20 Isosorbide Mononitrate ER [Imdur] 60 mg PO DAILY #30 tablet 08/21/19 04/16/20 Acetaminophen [Tylenol] 650 mg PO Q4HR PRN MDD NTE 3g per 02/01/20 04/16/20 24hours Magnesium Hydroxide [Milk of 30 ml PO DAILY PRN MDD If no BM in 02/01/20 04/16/20 Magnesia] 3 days QUEtiapine [SEROquel] 50 mg PO QPM 02/01/20 04/16/20 Tamsulosin HCl [Flomax] 0.4 mg PO DAILY 02/01/20 04/16/20 Acetaminophen [Aphen] 1,000 mg PO DAILY 03/07/20 04/16/20 DULoxetine [Cymbalta] 30 mg PO DAILY 03/07/20 03/07/20 QUEtiapine [SEROquel] 25 mg PO DAILY 03/07/20 04/16/20 HYDROcod/ACETAM 5/325 [[place] 5/325] 1 tab PO QPM 04/04/20 04/16/20 Hydrocodone/Acetaminophen [[place] 1 tab PO DAILY PRN 04/16/20 04/16/20 5-325 Tablet] traZODone [Desyrel] 25 mg PO QPM PRN 05/03/20 05/03/20 - Allergies Allergies/Adverse Reactions: Allergies Allergy/AdvReac Type Severity Reaction Status Date / Time hydrochlorothiazide AdvReac Unknown Verified 02/01/20 16:51 lisinopril AdvReac Unknown Verified 02/01/20 16:51 rosuvastatin calcium * AdvReac Unknown Verified 02/01/20 16:51 [From Crestor] Review of Systems - Constitutional Constitutional: reports: Weight stable. denies: Fever, Poor appetite - Eyes Eyes: denies: Irritation - Ears, Nose & Throat Ears, Nose & Throat: denies: Dry mouth - Cardiovascular Cardiovascular: reports: Edema. denies: Palpitations, Chest pain - Respiratory Respiratory: denies: Wheezing - Gastrointestinal Gastrointestinal: reports: Good appetite. denies: Constipation (bowel movement daily to every other day reported by staff), Nausea - Genitourinary Genitourinary: denies: Dysuria - Musculoskeletal Musculoskeletal: reports: Stiffness, Limited range of motion (right shoulder), Joint pain (shoulders), Assistive devices - Neurological Neurological: reports: General weakness, Memory problems. denies: Dizziness - Psychiatric Psychiatric: reports: Depression, Anxiety, Behavior disturbances (controlled with quetiapine) - Endocrine Endocrine: denies: Hypothyroidism - Hematologic/Lymphatic Hematologic/Lymph: Other (No history of recurrent infections) - All Other Systems All Other Systems: reports: Reviewed and negative (ROS supplemented by patient's caregiver as a poor historian due to dementia.) Physical Exam - Vital Signs Temperature: 36.4 C Pulse Rate: 67 O2 Saturation: 97 (on RA at rest) Blood Pressure: 132/80 (left arm) - Physical Exam General Appearance: positive: No acute distress, Alert, Other (OOB in wheelchair, well groomed) Eyes Bilateral: positive: Normal inspection ENT: positive: No signs of dehydration Neck: positive: Trachea midline Cardiovascular: positive: Regular rate & rhythm, Systolic murmur (soft, 1/6 CATHI) Respiratory: positive: No respiratory distress, Breath sounds nml Abdomen: positive: Non-tender, Soft, Nml bowel sounds Skin: positive: Dryness Extremities: positive: Pedal edema (BLE edema +1 (baseline)) Neurologic/Psychiatric: positive: Mood/affect nml, Disoriented to place, Other (jovial and engaged with evaluation) Palliative Care - POLST Patient has POLST: Yes POLST Status: DNR, Comfort Measures Pain: Pain improved (improved with increase of cymbalta to 30mg daily) Anxiety: None (improved with increse of cymbalta) Sleep: Variable sleep pattern Constipation: Managed Performance Status: Patient has been up ambulating more instead of self-propelling in his wheelchair. No recent falls. No behavioral outbursts. Has a hearty appetite. PPS 60% - Palliative Care Discussion: Since increase of Cymbalta to 30 mg daily this has improved the patient's undercurrent of anxiety as well as pain control with his osteoarthritis to his Generalized joints. He is intermittently using breakthrough hydrocodone/acetaminophen 5 mg / 325 mg tablet. He continues on hydrocodone/acetaminophen 5/325 mg tablet nightly as he has more pain reported in the evening especially when he is being more active. The patient continues to have waxing and waning insomnia. There are times that the staff are able to redirect him and other times that they are not. Patient's daughter is open to a trial of as needed trazodone to be on hand at the facility for use for the patient's comfort. Results - Lab Results Lab results reviewed: Yes Lab and Imaging Results: 05/03/2020 Sodium 140, potassium 3.8, BUN 20, creatinine 0.9, GFR 81, glucose 130, calcium 9.4 Impression and Recommendations - Palliative Care Impression: This is a leigh ann 84-year-old gentleman with significant cardiac history with underlying pain due to osteoarthritis of multiple joints, anxiety as well as dementia with behavioral disturbances. He has improvement of his overall generalized pain with increase of duloxetine to 30 mg daily as well as his underlying anxiety. He continues to have demonstrating behaviors of insomnia an d would benefit from an as needed dose of trazodone. Palliative care to continue right support, pain and symptom management as well as anticipatory guidance. Recommendations/Counseling Done: 1. Osteoarthritis, multiple joints involved. Continue duloxetine at 30 mg daily as noted improvements with patient's generalized pain with increased ambulation staff. Continue hydrocodone/acetaminophen 5 mg / 325 mg 1 tablet nightly as well as 1 tablet daily as needed for breakthrough pain. Continue senna 8.6 mg nightly for bowel regimen and prevention of constipation. Continue acetaminophen 1000 mg in the morning. Requested acetaminophen not exceed 3 g daily from all sources. Continue routine follow tear and gel application to right shoulder as well as bilateral knees as ordered. Fall precautions. Continue to monitor the patient's response to the medication regimen. 2. Insomnia. Anxiety presently controlled. Discontinue melatonin 6 mg nightly as this can have the opposite effect with alertness instead of sedation. Initiate trazodone 25 mg as needed nightly for insomnia for staff to have on hand if the patient is unable to fall asleep. Reviewed purpose, dose, and side effects with patient's daughter/DPDAVID and understanding verbalized with Rx sent to mail order pharmacy [facility]. 3. Anxiety. No behaviors that are anxious in nature reported since increase of duloxetine to 30 mg daily. Given increase of duloxetine BMP was obtained today today and no evidence of hyponatremia. Continue to monitor. 4.Elevated blood glucose level. No signs or symptoms of hyperglycemia. Patient's lab work was taken after consuming several helpings of waffles with syrup and was nonfasting. No further evaluation at this time. 5. Dementia with behavioral disturbances. Chronic. Progressive. Likely vascular in nature. Continue quetiapine 25 mg in the morning and 50 mg in the evening. Continue duloxetine 30 mg daily for mood stabilization and underlying anxiety. Patient is not on any disease modifying agents for his dementia. Given the patient's advanced age a gradual decline is expected. Time Spent: CPT 58983 Plan of care reviewed with daughter/DPDAVID Ham via phone regarding patient with physical findings and medication adjustments. Questions answered and addressed with maximiliano Ham and in agreement to move forward. Fax new orders after discussion with maximiliano Ham to adult [facility]. Disclaimer: The chart note was formulated using voice recognition technology and unfortunately sound alike errors may occur.
== END 2020-05-03 08:21 | disposition home or self-care (01) ==
CPT/HCPCS: 99349

== ENCOUNTER 2020-05-03 08:35 | Outpatient (CLI) | payer MEDICARE ==
[2020-05-03 09:57] LABS: CALCIUM 9.4 mg/dL (8.5-10.3); CREATININE 0.9 mg/dL (0.6-1.2)
== END 2020-05-03 23:59 | disposition home or self-care (01) ==
LOC: LAB.R 08:35
PROVIDERS: ATTEND Nurse Practitioner Family
DX: I12.9 Hypertensive chronic kidney disease with stage 1 through stage 4 chronic kidney disease, or unspecified chronic kidney disease (principal); N18.9 Chronic kidney disease, unspecified; F32.9 Major depressive disorder, single episode, unspecified
CPT/HCPCS: 80048

== ENCOUNTER 2020-05-16 14:20 | Outpatient (CLI) | payer MEDICARE ==
--- NOTE | 2020-05-16 18:31 | CONSULTATION NOTE ---
Palliative Care Follow Up - Referral Referring Provider: LESLEY Singh Time of Visit: 8234-3844 Referral setting: Adult Family Home Referral Reason: Dementia with behavioral disturbances/refusal of medication - Information Sources Records reviewed: RN notes reviewed History/Review of Systems obtained from: Patient, Caregiver (Jovany, caregiver) Exam limitations: Clinical condition (Advanced dementia) - History of Present Illness Update Brief HPI Update: This is an 84-year-old gentleman who was seen in follow-up today at [facility] due to dementia with behavioral disturbances and recent refusal of medications. Yesterday the patient was refusing his medication. He was picking and choosing which medication he wished to take believing that certain ones were contributing to having him void or defecate which is not something that he was inclined to do. In review today, the patient is frustrated with his frequency of having to void with gentle reminders that if he does not take his diuretic medication he will have increased swelling and shortness of breath. Reviewed with Caregiving staff at [facility] to ensure her administration of quetiapine that is dosed twice daily moving forward and reviewed with the patient each of his medications to provide reassurance. His pain overall appears to be well controlled. He is ambulating more during the day and not using his wheelchair to self propel. This morning he walked to the bathroom back to the [facility] area and also walked from his room to the kitchen. He continues on duloxetine 30 mg daily and hydrocodone/immune if Aminofen 5/225 mg tablet in the evening. Reviewed with Jovany they have approximately 14 tablets of hydrocodone/acetaminophen remaining. The patient denies any numbness or tingling of the upper extremities. He does report decreased range of motion to his left shoulder with movement. In regards to voiding, he denies dysuria, change in urinary stream, or difficulty starting or stopping while voiding. He also continues on Flomax for BPH. Patient is seen the in in his wheelchair, well-groomed at the dining room table. No evidence of acute distress. Past Medical History: Patient has a past medical history of congestive heart failure with ejection fraction 35 to 60%, hypertension, coronary artery disease, [place], atrial fibrillation, dementia, subdural hematoma with evacuation at age 17, BPH, anxiety, osteoarthritis, insomnia, status post CABG. Social History - Living Situation Living arrangement: Adult family home Support System: Patient is from his . The patient is of 6 children together. The patient's daughter, Fatoumata is his DPOA with contact number [phone] Medications/Allergies - Medications Home Medications: Ambulatory Orders Medication Instructions Recorded Confirmed Losartan Potassium 50 mg PO BID 09/13/15 04/16/20 Metoprolol Tartrate 37.5 mg PO BID 09/13/15 04/16/20 amLODIPine [Norvasc] 10 mg PO DAILY 09/13/15 04/16/20 Aspirin 81 mg PO DAILY 06/27/19 04/16/20 Calcium Carbonate [Tums (Calcium 1,000 mg PO BID 06/27/19 04/16/20 Carbonate 500mg)] Diclofenac Sodium [Voltaren] TOP DAILY 06/27/19 06/27/19 Furosemide [Lasix] 20 mg PO DAILY 06/27/19 04/16/20 Nitroglycerin 0.4 mg SL DAILY PRN 06/27/19 04/16/20 Isosorbide Mononitrate ER [Imdur] 60 mg PO DAILY #30 tablet 08/21/19 04/16/20 Acetaminophen [Tylenol] 650 mg PO Q4HR PRN MDD NTE 3g per 02/01/20 04/16/20 24hours Magnesium Hydroxide [Milk of 30 ml PO DAILY PRN MDD If no BM in 02/01/20 04/16/20 Magnesia] 3 days QUEtiapine [SEROquel] 50 mg PO QPM 02/01/20 04/16/20 Tamsulosin HCl [Flomax] 0.4 mg PO DAILY 02/01/20 04/16/20 Acetaminophen [Aphen] 1,000 mg PO DAILY 03/07/20 04/16/20 DULoxetine [Cymbalta] 30 mg PO DAILY 03/07/20 03/07/20 QUEtiapine [SEROquel] 25 mg PO DAILY 03/07/20 04/16/20 HYDROcod/ACETAM 5/325 [[place] 5/325] 1 tab PO QPM 04/04/20 04/16/20 Hydrocodone/Acetaminophen [[place] 1 tab PO DAILY PRN 04/16/20 04/16/20 5-325 Tablet] traZODone [Desyrel] 25 mg PO QPM PRN 05/03/20 05/03/20 - Allergies Allergies/Adverse Reactions: Allergies Allergy/AdvReac Type Severity Reaction Status Date / Time hydrochlorothiazide AdvReac Unknown Verified 02/01/20 16:51 lisinopril AdvReac Unknown Verified 02/01/20 16:51 rosuvastatin calcium * AdvReac Unknown Verified 02/01/20 16:51 [From Crestor] Review of Systems - Constitutional Constitutional: reports: Weight stable. denies: Fever - Ears, Nose & Throat Ears, Nose & Throat: denies: Dry mouth - Cardiovascular Cardiovascular: reports: Edema. denies: Chest pain - Respiratory Respiratory: denies: Cough - Gastrointestinal Gastrointestinal: reports: Good appetite. denies: Constipation (bowel movement daily to every other day reported by staff), Nausea - Genitourinary Genitourinary: reports: Other (see HPI for details) - Musculoskeletal Musculoskeletal: reports: Stiffness, Limited range of motion (today reporting left shoulder instead of right shoulder), Joint pain (shoulders), Assistive devices - Integumentary Integumentary: reports: Dryness - Neurological Neurological: reports: General weakness, Memory problems - Psychiatric Psychiatric: reports: Depression, Anxiety, Behavior disturbances (controlled with quetiapine when he elects to take his medications) - Endocrine Endocrine: denies: Hypothyroidism - Hematologic/Lymphatic Hematologic/Lymph: reports: Other (No history of recurrent infections) - All Other Systems All Other Systems: reports: Reviewed and negative (ROS supplemented by patient's caregiver, Jovany as a poor historian due to dementia.) Physical Exam - Vital Signs Temperature: 36.9 C Pulse Rate: 56 O2 Saturation: 97 (on RA) Blood Pressure: 143/70 (left wrist) - Physical Exam General Appearance: positive: No acute distress, Alert Eyes Bilateral: positive: Normal inspection ENT: positive: No signs of dehydration Neck: positive: Trachea midline Cardiovascular: positive: Bradycardia, Systolic murmur Respiratory: positive: No respiratory distress, Breath sounds nml Abdomen: positive: Non-tender, Soft, Nml bowel sounds Skin: positive: Dryness Extremities: positive: Pedal edema (BLE +1, baseline), Other (+crepitus left shoulder with movement) Neurologic/Psychiatric: positive: Mood/affect nml, Disoriented to place, Other (jovial and agreeable today. Reflects on a time he was at a [employer] in [place] that has been brought up on previous occasions as well.) Palliative Care - POLST Patient has POLST: Yes POLST Status: DNR, Comfort Measures Pain: Pain improved (Patient is more ambulatory after dose increase of Cymbalta 30 mg daily.) Sleep: Variable sleep pattern (Last evaluation initiated as needed trazodone for insomnia) Performance Status: Has been up ambulating more on a daily basis as opposed to self-propelling in his wheelchair. No recent falls. No behavioral outburst. Has intermittently been refusing medications to avoid voiding or defecating. Has a robust appe tite. PPS 60% - Palliative Care Discussion: Patient's pain appears to be managed with increased functional ability demonstrated by the fact that he is more ambulatory with a the adult family home setting. Given the patient's underlying dementia and history of behavioral disturbances it is unavoidable that he will have potential.'s where he will refuse med ications. Educated facility staff regarding approach to the patient and returning at a later time to readminister medications after first refusal. Reviewed with the patient himself in his medications and the purpose, dose with understanding verbalized. Impression and Recommendations - Palliative Care Impression: This is an 84-year-old gentleman with significant cardiac history with underlying pain due to osteoarthritis of multiple joints, dementia with behavioral disturbances with recent refusal of of oral medications. His refusal of oral medications intermittently is unavoidable due to his underlying dementia and requires support port and readjustment by caregiving staff. Palliative care to continue right support, care coordination, pain and symptom management as well as anticipatory guidance. Recommendations/Counseling Done: 1. Dementia with behavioral disturbances. Chronic. Progressive. Likely vascular in nature. Recent refusal of medication and reoriented the patient regarding the need for medication purpose and dosages. Facility staff to continue to reorient the patient and redirect approach at a later date after refusal. Provided support with the patient and facility staff. Continue quetiapine 25 mg in the morning and 50 mg in the evening. Continue duloxetine 30 mg daily for mood stabilization and underlying anxiety. Patient is not on any disease modifying agents for his dementia. Given the patient's advanced age and chronic comorbidities a gradual decline is expected. 2. Osteoarthritis, multiple joints involved. Functional ability improved with the patient ambulating more poor staff and patient report. Continue duloxetine 30 mg daily. Continue hydrocodone/acetaminophen 5 mg / 325 mg 1 tablet nightly as well as 1 tablet daily as needed for breakthrough pain. Requested caregiving staff to contact palliative care provider when quantity of hydrocodone /acetaminophen is at 1 week supply for refill so daughter may clam picker medication. Verbalized understanding. Continue senna 8.6 mg nightly for bowel regimen and prevention of constipation. Continue acetaminophen 1000 mg in the morning. Acetaminophen requested not to exceed 3 g daily from all sources. Continue Voltaren gel application to the right shoulder and bilateral knees as ordered. Fall precautions. Continue to monitor the patient's response to medication regimen and function for dosage adjustment in the future. Total time spent 40 minutes with greater than 50% of this spent in counseling and coordination of care with patient and caregiver, Jovany; evaluation of patient; review of medication management with patient and caregiver; supportive listening; review of pain and symptom management and anticipatory guidance. Disclaimer: The chart note was formulated using voice recognition technology and unfortunately sound alike errors may occur.
== END 2020-05-16 14:21 | disposition home or self-care (01) ==
LOC: PC 14:20
PROVIDERS: ATTEND Nurse Practitioner Family
DX: Z51.5 Encounter for palliative care (principal); F03.91 Unspecified dementia, unspecified severity, with behavioral disturbance; M89.49 Other hypertrophic osteoarthropathy, multiple sites; Z91.14 Patient's other noncompliance with medication regimen; Z66 Do not resuscitate
CPT/HCPCS: 99349

== ENCOUNTER 2020-07-11 09:40 | Outpatient (CLI) | payer MEDICARE ==
--- NOTE | 2020-07-11 16:14 | CONSULTATION NOTE ---
Palliative Care Follow Up - Referral Referring Provider: LESLEY Singh Time of Visit: 1176-9616 Referral setting: Adult Family Home Referral Reason: HTN/Dementia with behavior/left hand pain - Information Sources Records reviewed: RN notes reviewed History/Review of Systems obtained from: Patient, Caregiver (Nahid and Yun) Exam limitations: Clinical condition (Advanced Dementia) - History of Present Illness Update Brief HPI Update: This is an 84-year-old gentleman who is seen in follow-up today at [facility] due to dementia with behavioral disturbances, chronic osteoarthritic pain, insomnia, and complaints of intermittent left hand pain. He is seen with his caregivers, Amita and Yun present. The patient will intermittently refuses medications. He is persistently refusing his senna. He is having routine defecation but at times it is reported to be more firm. The patient often reports very when he has had a bowel movement due to his underlying dementia. Would benefit from transitioning to a new medication for softening of the stools versus senna which she recognizes and refuses. He reports has been reporting intermittently left hand numbness and tingling to caregivers. He has found it helpful to massage reporting it under water. He denies a decreased tray packer. His right shoulder is his shoulder with increased osteoarthritis and pain with decreased movement and not his left shoulder. Therefore, he may be compensating and using his left hand more frequently. He has been refusing his Voltaren gel application to his knees and shoulders routinely and therefore will transition to as needed. He continues on acetaminophen/hydrocodone 5 mg / 325 mg in the evening and duloxetine 30 mg daily with overall benefit. He would benefit from further dose titration of his hydrocodone/acetaminophen frequency during the day for creased ability for function. He has a history of insomnia. He has as needed trazodone 25 mg to take in the evening if needed. He is often up and down throughout the night if trazodone is not administered. He typically is most alert after 2:58 in the morning. Would potentially benefit from scheduled trazodone for consistency and reduction of some underlying agitation and anxiety. The patient is seen after leaving the restroom after defecation is wheelchair. He is able to self propel. Well-groomed. No evidence of acute distress. Past Medical History: Patient has a past medical history of congestive heart failure ejection fraction 35 to 60%, hypertension, coronary artery disease, [place], atrial fibrillation, dementia, subdural hematoma with evacuation age 17, BPH, anxiety, osteoarthriti s, insomnia, status post CABG. Social History - Living Situation Living arrangement: Adult family home Support System: Patient is from his . The patient and his have 6 children together. The patient's daughter, Fatoumata is his DPOA with contact number [phone]. Medications/Allergies - Medications Home Medications: Ambulatory Orders Medication Instructions Recorded Confirmed Losartan Potassium 50 mg PO BID 09/13/15 04/16/20 Metoprolol Tartrate 37.5 mg PO BID 09/13/15 04/16/20 amLODIPine [Norvasc] 10 mg PO DAILY 09/13/15 04/16/20 Aspirin 81 mg PO DAILY 06/27/19 04/16/20 Calcium Carbonate [Tums (Calcium 1,000 mg PO BID 06/27/19 04/16/20 Carbonate 500mg)] Diclofenac Sodium [Voltaren] TOP DAILY PRN 06/27/19 06/27/19 Furosemide [Lasix] 20 mg PO DAILY 06/27/19 04/16/20 Nitroglycerin 0.4 mg SL DAILY PRN 06/27/19 04/16/20 Isosorbide Mononitrate ER [Imdur] 60 mg PO DAILY #30 tablet 08/21/19 04/16/20 Acetaminophen [Tylenol] 650 mg PO Q4HR PRN MDD NTE 3g per 02/01/20 04/16/20 24hours Magnesium Hydroxide [Milk of 30 ml PO DAILY PRN MDD If no BM in 02/01/20 04/16/20 Magnesia] 3 days QUEtiapine [SEROquel] 50 mg PO QPM 02/01/20 04/16/20 Tamsulosin HCl [Flomax] 0.4 mg PO DAILY 02/01/20 04/16/20 Acetaminophen [Aphen] 1,000 mg PO .[id number] 03/07/20 04/16/20 DULoxetine [Cymbalta] 30 mg PO DAILY 03/07/20 03/07/20 QUEtiapine [SEROquel] 25 mg PO DAILY 03/07/20 04/16/20 HYDROcod/ACETAM 5/325 [[place] 5/325] 1 tab PO BID 04/04/20 04/16/20 Hydrocodone/Acetaminophen [[place] 1 tab PO DAILY PRN 04/16/20 04/16/20 5-325 Tablet] traZODone [Desyrel] 50 mg PO QPM PRN 05/03/20 05/03/20 Docusate Sodium [Dss] 1 cap PO DAILY 07/11/20 07/11/20 Senna [Senokot] 1 tab PO DAILY PRN 07/11/20 07/11/20 - Allergies Allergies/Adverse Reactions: Allergies Allergy/AdvReac Type Severity Reaction Status Date / Time hydrochlorothiazide AdvReac Unknown Verified 02/01/20 16:51 lisinopril AdvReac Unknown Verified 02/01/20 16:51 rosuvastatin calcium * AdvReac Unknown Verified 02/01/20 16:51 [From Crestor] Review of Systems - Constitutional Constitutional: reports: Weight stable (weight 195lb on 07/08/2020). denies: Fever - Eyes Eyes: denies: Irritation - Ears, Nose & Throat Ears, Nose & Throat: denies: Hearing aids - Cardiovascular Cardiovascular: reports: Edema (refused compression hose). denies: Chest pain - Respiratory Respiratory: denies: Cough, Wheezing - Gastrointestinal Gastrointestinal: reports: Good appetite. denies: Constipation (mixed report from patient to staff, refusing senna most days), Nausea - Genitourinary Genitourinary: denies: Dysuria - Musculoskeletal Musculoskeletal: reports: Stiffness, Limited range of motion (today reporting left shoulder instead of right shoulder), Joint pain (shoulders), Assistive devices - Integumentary Integumentary: reports: Dryness - Neurological Neurological: reports: General weakness, Numbness (left hand intermittent, see HPI), Memory problems - Psychiatric Psychiatric: reports: Depression, Anxiety, Behavior disturbances (controlled with quetiapine) - Endocrine Endocrine: denies: Hypothyroidism - Hematologic/Lymphatic Hematologic/Lymph: reports: Other (No history of recurrent infections) - All Other Systems All Other Systems: reports: Reviewed and negative (ROS supplemented by patient's caregivers Nahid and Yun due to dementia.) Physical Exam - Vital Signs Temperature: 36.8 C Pulse Rate: 57 O2 Saturation: 96 (on RA) Blood Pressure: 124/62 (left arm) - Physical Exam General Appearance: positive: No acute distress, Alert Eyes Bilateral: positive: Normal inspection ENT: positive: No signs of dehydration Neck: positive: Trachea midline Cardiovascular: positive: Bradycardia, Systolic murmur Respiratory: positive: No respiratory distress, Breath sounds nml. negative: Rales Abdomen: positive: Non-tender, Soft, Nml bowel sounds. negative: Guarding Skin: positive: Dryness Extremities: positive: Pedal edema (BLE +1 to mid-tibia, baseline), Other (+crepitus left shoulder with movement; negative left wrist tinels sign and +phalens sign) Neurologic/Psychiatric: positive: Mood/affect nml, Disoriented to place, Other (Engaged and pleasantly confused without s/s of agitation) Palliative Care - POLST Patient has POLST: Yes POLST Status: DNR, Comfort Measures Pain: Pain worsening (specifically to left hand; generalized joint pain) Constipation: Yes (attempting to manage but difficult as the patient will decline senna.) - Palliative Care Discussion: The patient is refusing various medications including senna and his Voltaren gel and therefore will make senna as needed and make Voltaren gel as needed as well so that it is available for use. As the patient needs to continue to move his bowels routinely due to opioid medication will initiate on Dukas 8 250 mg daily and hopes that this pill that looks differently from senna he will be unlikely to refuse. He is reporting intermittent left hand pain that may be indicative of some underlying carpal tunnel. Discussed use of a wrist brace to wear in the evenings to provide stabilization of support of his wrist and reduce symptoms however, the patient notes that he would not comply and does not wish to move forward with that type of intervention. He continues to be up frequently in the sander setter hours and would benefit from further dose adjustment of his trazodone and making it routine to combat his underlying insomnia. Impression and Recommendations - Palliative Care Impression: This is an 84-year-old gentleman with significant cardiac history with underlying pain due to osteoarthritis of multiple joints, questionable carpal tunnel syndrome of the left wrist, dementia with behavioral disturbances. He would benefit from dose adjustment of his trazodone for improvement of his insomnia symptoms. For medications that he has been refusing will make as needed. Palliative care to continue to provide support, care coordination, per pain and symptom management as well as anticipatory guidance. Recommendations/Counseling Done: 1. Left wrist/hand pain, intermittent. New development. Positive Mary sign and negative Tinel's. Questionable underlying carpal tunnel. Patient declined intervention with a wrist brace to wear in the evenings. Recommend local massage. We will look at increasing his hydrocodone/acetaminophen for further comfort. 2. Osteoarthritis, multiple joints involved. Increase hydrocodone/acetaminophen 5/325 mg to 1 tablet twice daily. Continue hydrocodone/acetaminophen 5 mg / 325 mg 1 tablet daily as needed for breakthrough pain. Move his scheduled acetaminophen 1000 mg to 12 noon. Acetaminophen requested not to exceed 3 g daily from all sources. Will make Voltaren gel application as needed as the patient has been refusing. Fall precautions. Continue to monitor the patient's response to medication regimen and function for dosage adjustment in the future. Continue duloxetine 30 mg daily. 3. Constipation. Intermittent. Frequently refuses senna. Will transition to senna 8.6 mg 1 tablet daily as needed for constipation. Initiate Dukas 8 250 mg 1 capsule nightly for constipation. Sedentary lifestyle contributing. We will continue to monitor. 4. Congestive heart failure. Presently on furosemide 20 mg daily. Refuses compression stockings. Continue to encourage elevation of lower extremities when at rest and not always have his legs in dependent position. Blood pressure well controlled today. Continue to monitor. 5. Insomnia. Longstanding history. Will transition trazodone to scheduled dosing and increased from 25 mg to 50 mg nightly. Continue to monitor. 6. Dementia with behavioral disturbances. Chronic. Progressive. Likely vascular nature. On no disease modifying agents. Continue quetiapine 25 mg in the morning and 50 mg in the evening. Continue duloxetine 30 mg daily for mood stabilization and underlying anxiety. Given the patient's advanced age and chronic comorbidities a gradual Romero is expected. 7. Advanced care planning. Patient has POLST in place as DN AR with comfort measures. Will discontinue unused or unneeded medications from MAR that is as needed including Fleet enema, bisacodyl suppository, supplemental shake, and oh Danza Lyle. These carried over from when the patient was in a rehabilitation facility. The patient's daughter/DPOA, Fatoumata continues to have a distant relationship with her father and provides attentive oversight but refrains from seeing the patient and person due to complex psychosocial dynamics. The patient has an upcoming birthday and his son plans on visiting this weekend. Total time spent 40 minutes with greater than 50% of the spent in counseling c oordination of care with the patient, caregivers Amita and Yun; Evaluation of the patient; review of medication management with the patient and caregiver; supportive listening, review of pain and symptom management and anticipatory guidance. Contacted patient's daughter/DPOAFatoumata at [phone] and updated regarding plan of care with questions answered and addressed and in agreement for changes as noted above in plan of care. Supportive listening provided to daughter Fatoumata. Disclaimer: The chart note was formulated using voice recognition technology and unfortunately sound alike errors may occur.
== END 2020-07-11 09:41 | disposition home or self-care (01) ==
LOC: PC 09:40
PROVIDERS: ATTEND Nurse Practitioner Family
DX: Z51.5 Encounter for palliative care (principal); M25.532 Pain in left wrist; M79.642 Pain in left hand; M89.49 Other hypertrophic osteoarthropathy, multiple sites; K59.00 Constipation, unspecified; I11.0 Hypertensive heart disease with heart failure; I50.9 Heart failure, unspecified; G47.00 Insomnia, unspecified; F03.91 Unspecified dementia, unspecified severity, with behavioral disturbance; Z66 Do not resuscitate

== ENCOUNTER 2020-08-13 08:55 | Outpatient (CLI) | payer MEDICARE ==
--- NOTE | 2020-08-13 16:28 | CONSULTATION NOTE ---
Palliative Care Follow Up - Referral Referring Provider: LESLEY Singh Time of Visit: Initiated 0855 Referral setting: Adult Family Home Referral Reason: HTN/Chronic Pain/[place]ent[place] with behavior - Information Sources Records reviewed: Previous records reviewed History/Review of Systems obtained from: Patient, Caregiver (Sasha) Exam limitations: Clinical condition (Advanced Dementia) - History of Present Illness Update Brief HPI Update: This is an 84-year-old gentleman who was seen in follow-up today at [facility] due to dementia with behavioral disturbances, chronic pain syndrome due to osteoarthritis, insomnia, and weight loss. The patient has generalized osteoarthritis arthritis most pacifically to his right shoulder and bilateral knees. He is presently on routine acetaminophen/hydrocodone 5 mg / 325 mg twice daily with duloxetine 30 mg daily. He reports that the hydrocodone/acetaminophen is not fully effective. In discussion with caregiving staff, she Yuliya she reports that his pain appears to be controlled during the day but towards the evening hours he is having increased reports of discomfort more specifically to his hands. Previously, staff would have towels and items for the patient to fold however, due to discomfort he is no longer performing these tasks. He would benefit from further dose titration of his hydrocodone/acetaminophen dosing. The patient when his left wrist pain was previously addressed on last evaluation on 07/11/2020 he was not open to wearing the a wrist brace for potential underlying carpal tunnel and to have his wrist in a neutral position. This is still the reported case today. Caregivers report that the patient is sleeping better through the night and there are less agitated behaviors. He is receiving trazadone routinely at bedtime. He continues to have a hearty appetite consuming his meals however, there has been a reduction in his overall weight to 187.1 pounds previously was 194 pounds. The patient is seen in the common area at the dining table. He is in his wheelchair that he is able to self compel. Well groomed, no evidence of acute distress. Past Medical History: Patient has a past medical history of congestive heart failure ejection fraction 35 to 60%, hypertension, coronary artery disease, [place], atrial fibrillation, dementia, subdural hematoma with evacuation age 17, BPH, anxiety, osteoarthritis, insomnia, status post CABG. Social History - Living Situation Living arrangement: Adult family home Support System: Patient is from his . The patient is has 6 children together. The patient's daughter, Fatoumata is his DPOA with contact number [phone]. Patient was born in [place]. Medications/Allergies - Medications Home Medications: Ambulatory Orders Medication Instructions Recorded Confirmed Losartan Potassium 50 mg PO BID 09/13/15 04/16/20 Metoprolol Tartrate 37.5 mg PO BID 09/13/15 04/16/20 amLODIPine [Norvasc] 10 mg PO DAILY 09/13/15 04/16/20 Aspirin 81 mg PO DAILY 06/27/19 04/16/20 Calcium Carbonate [Tums (Calcium 1,000 mg PO BID 06/27/19 04/16/20 Carbonate 500mg)] Diclofenac Sodium [Voltaren] TOP DAILY PRN 06/27/19 06/27/19 Furosemide [Lasix] 20 mg PO DAILY 06/27/19 04/16/20 Nitroglycerin 0.4 mg SL DAILY PRN 06/27/19 04/16/20 Isosorbide Mononitrate ER [Imdur] 60 mg PO DAILY #30 tablet 08/21/19 04/16/20 Acetaminophen [Tylenol] 650 mg PO Q4HR PRN MDD NTE 3g per 02/01/20 04/16/20 24hours Magnesium Hydroxide [Milk of 30 ml PO DAILY PRN MDD If no BM in 02/01/20 04/16/20 Magnesia] 3 days QUEtiapine [SEROquel] 50 mg PO QPM 02/01/20 04/16/20 Tamsulosin HCl [Flomax] 0.4 mg PO DAILY 02/01/20 04/16/20 DULoxetine [Cymbalta] 30 mg PO DAILY 03/07/20 03/07/20 QUEtiapine [SEROquel] 25 mg PO DAILY 03/07/20 04/16/20 HYDROcod/ACETAM 5/325 [[place] 5/325] 1 tab PO TID 04/04/20 04/16/20 Hydrocodone/Acetaminophen [[place] 1 tab PO DAILY PRN 04/16/20 04/16/20 5-325 Tablet] traZODone [Desyrel] 50 mg PO QPM 05/03/20 05/03/20 Docusate Sodium [Dss] 1 cap PO DAILY 07/11/20 07/11/20 Senna [Senokot] 1 tab PO DAILY PRN 07/11/20 07/11/20 - Allergies Allergies/Adverse Reactions: Allergies Allergy/AdvReac Type Severity Reaction Status Date / Time hydrochlorothiazide AdvReac Unknown Verified 08/13/20 16:31 lisinopril AdvReac Unknown Verified 08/13/20 16:31 rosuvastatin calcium * AdvReac Unknown Verified 08/13/20 16:31 [From [facility]] Review of Systems - Constitutional Constitutional: reports: Weight loss (weight 187.1lb 08/05/2020; weight 195lb on 07/08/2020). denies: Fever - Eyes Eyes: denies: Irritation - Ears, Nose & Throat Ears, Nose & Throat: denies: Hearing aids - Cardiovascular Cardiovascular: reports: Edema (controlled and refuses compression hose). denies: Palpitations - Respiratory Respiratory: denies: Cough - Gastrointestinal Gastrointestinal: reports: Good appetite. denies: Constipation (reports to regular bowel movements with use of colace 250mg daily), Nausea - Genitourinary Genitourinary: denies: Dysuria - Musculoskeletal Musculoskeletal: reports: Stiffness, Limited range of motion (right shoulder, reported), Joint pain (shoulders and knees), Assistive devices - Integumentary Integumentary: reports: Dryness - Neurological Neurological: reports: General weakness, Memory problems - Psychiatric Psychiatric: reports: Depression, Anxiety, Behavior disturbances (controlled wit h quetiapine) - Endocrine Endocrine: denies: Diabetes type 2 - Hematologic/Lymphatic Hematologic/Lymph: reports: Other (No history of recurrent infections) - All Other Systems All Other Systems: reports: Reviewed and negative (ROS supplemented by patient's caregiver Sasha due to patient's dementia) Physical Exam - Vital Signs Temperature: 36.7 C Pulse Rate: 58 O2 Saturation: 98 (on RA) Blood Pressure: 134/70 (left arm) - Physical Exam General Appearance: positive: No acute distress, Alert, Other (OOB in wheelchair; b/l temporal wasting) Eyes Bilateral: positive: Normal inspection ENT: positive: No signs of dehydration, Other (b/l temporal wasting) Neck: positive: Trachea midline Cardiovascular: positive: Bradycardia, Systolic murmur Respiratory: positive: No respiratory distress, Breath sounds nml. negative: Rales Abdomen: positive: Non-tender, Soft, Nml bowel sounds. negative: Distended Skin: positive: Dryness, Other (visible sun exposure with tanning to scalp, face and upper arms) Extremities: positive: Pedal edema (BLE trace to mid-tibia), Other (+stiffness with ROM to b/l shoulders) Neurologic/Psychiatric: positive: Mood/affect nml, Disoriented to place, Other (Engaged and pleasantly confused without s/s of agitation. Patient enjoys flirting and teasing.) Palliative Care - POLST Patient has POLST: Yes POLST Status: DNR, Comfort Measures Pain: Pain worsening (Feels like pain is "worse than ever" despite recent increase in regimen with pain generalized) Constipation: Yes, Managed (taking colace, previously refused to take scheduled senna) - Palliative Care Discussion: The patient has had overall improvement with his insomnia and is getting up less during the night per staff report with routine administration of trazodone. The patient continues to have reports of pain due to osteoarthritis to multiple joints despite utilization of hydrocodone/acetaminophen 5/325 mg tablets twice daily, scheduled acetaminophen 1000 mg daily and Cymbalta 30 mg daily. The patient is not participating in some activities that he previously had been performing to be occupied and assist the staff at the adult family home. He would benefit from further dose titration of his hydrocodone/acetaminophen to 3 times daily dosing at 8 AM, 2 PM, and 8 PM. The patient is enjoying going outside for long periods of time but is not applying sunscreen or utilizing a cap on his head. Both of these interventions were reinforced today with the facility staff as well as with the patient to reduce risk of skin cancer. Impression and Recommendations - Palliative Care Impression: This is an 85-year-old man with significant cardiac history with underlying pain due to osteoarthritis of multiple joints, insomnia, and routine sun exposure. The patient has benefited from routine administration of trazodone for his i nsomnia. He would benefit from dose titration of his hydrocodone/acetaminophen from twice daily to 3 times daily dosing for further control of his pain. Palliative care to continue provide support, care coordination, pain and symptom management as well as anticipatory guidance. Recommendations/Counseling Done: 1. Osteoarthritis, multiple joints involved. Increase hydrocodone/acetaminophen 5/325 mg to 1 tablet 3 times daily at 8 AM, 2 PM, and 8 PM. Continue hydrocodone/acetaminophen 5 mg / 325 mg 1 tablet daily as needed for breakthrough pain. Discontinue acetaminophen 1000 mg daily at noon. Request that acetaminophen as needed not exceed 3 g daily from all sources. Continue Voltaren gel application as needed at previously been refusing routine application. Continue duloxetine 30 mg daily. Fall precautions. Continue to monitor the patient's response to medication regimen and function for dose adjustment in the future. 2. Insomnia. Longstanding history. Continue trazodone 50 mg nightly for insomnia as this was been effective. 3. Constipation. Improved. Continue Colace 250 mg 1 capsule nightly for constipation. Sedentary lifestyle is contributing. Request that adult family home staff monitor and document bowel movements daily x14 days and notify CHARGING MACHINE OPERATOR upon completion for review to see if further titration of bowel regimen needs to be made with increase of hydrocodone/acetaminophen placing the patient at risk for constipation. 4. Dementia with behavioral disturbances. Chronic. Progressive. Likely vascular in nature. No new disease modifying agents. Continue quetiapine 25 mg in the morning and 50 mg in the evening. Continue duloxetine 30 mg daily for mood stabilization and underlying anxiety. Some recent weight loss noted without change in oral intake and will continue to monitor. Given the patient's advanced age and chronic comorbidities a gradual decline is expected. 5. Sun exposure. Encourage the patient to apply sunscreen as needed when going outside for longer than 10 minutes at a time for skin protection. Given the patient in has a lack of hair on his head would recommend a hat for protection of his scalp for reduction of sun exposure and risk for skin cancer. CPT 57965 Plan of care reviewed with caregiver, she Carmel with questions answered and addressed. Contacted the patient's daughter/DPOA, Fatoumata at [phone] and requested a return phone call back to review plan of care. Awaiting return phone call. Disclaimer: The chart note was formulated using voice recognition technology and unfortunately sound alike errors may occur.
== END 2020-08-13 08:56 | disposition home or self-care (01) ==
LOC: PC 08:55
PROVIDERS: ATTEND Nurse Practitioner Family
DX: Z51.5 Encounter for palliative care (principal); F03.91 Unspecified dementia, unspecified severity, with behavioral disturbance; G89.29 Other chronic pain; M17.0 Bilateral primary osteoarthritis of knee; M19.011 Primary osteoarthritis, right shoulder; G47.00 Insomnia, unspecified; K59.00 Constipation, unspecified; E11.9 Type 2 diabetes mellitus without complications; R63.4 Abnormal weight loss; Z99.3 Dependence on wheelchair; Z66 Do not resuscitate; Z79.891 Long term (current) use of opiate analgesic
CPT/HCPCS: 99349

== ENCOUNTER 2020-09-19 14:00 | Outpatient (CLI) | payer MEDICARE ==
--- NOTE | 2020-09-19 16:41 | CONSULTATION NOTE ---
Palliative Care Follow Up - Referral Referring Provider: LESLEY Singh Time of Visit: Initiated 1400 Referral setting: Adult Family [place] Referral Reason: Dementia with behavior/Weight Loss - Information Sources Records reviewed: Previous records reviewed History/Review of Systems obtained from: Patient, Caregiver (Yun) Exam limitations: Clinical condition (Advanced Dementia) - History of Present Illness Update Brief HPI Update: This is an 85-year-old man who was seen in follow-up today at [facility] due to dementia with behavioral disturbances, insomnia and weight loss. On the evening of September 17 the patient became extremely paranoid and belligerent to the point of leaving the residents and going outside cursing and screaming. Caregivers report that the use of his quetiapine did not calm his behaviors. The following morning, the patient was calm and apologetic for his previous behaviors. When questioned today, the patient does recall the events and leaving the premises reporting that he "did not get very far because of my legs." He does state that there are times that he just has to "take off and go somewhere else." He is not had an episode of paranoia to the point of leaving the home since approximately around 2020 his quetiapine was last adjusted. The patient would benefit from further dose adjustment of his quetiapine also in light of his continued reports of insomnia. The patient has a chronic history of insomnia. He is however taking naps periodically during the day which can impact his ability to sleep at night which was reviewed again with the patient today. He is presently on trazodone 50 mg nightly. He continues to be consuming his meals however, there are times when he does not like what is prepared by caregiving staff due to taste preferences. He continues to have a gradual weight reduction. His present weight on 09/01 was 182.6 pounds when he was previously 187.1. He has had reduction in his lower extremity edema which also may be contributing to some noted weight reduction. The patient is seen in the common area in his wheelchair self propelling on his way to take a nap. Well groomed and no evidence of distress. Past Medical History: Patient has a past medical history of congestive heart failure ejection fraction 35 to 60%, hypertension, coronary artery disease, [place], atrial fibrillation, dementia, subdural hematoma with evacuation age 17, BPH, anxiety, osteoarthritis, insomnia, status post CABG. Social History - Living Situation Living arrangement: Adult family home Support System: Patient is from his . The patient and his had 6 children together. The patient's daughter, Fatoumata is his DPOA with contact #[phone]. The patient was born in [place]. The patient has frequent phone calls from some of his children as well as for visitation. He enjoys sitting outside in the sun. Medications/Allergies - Medications Home Medications: Ambulatory Orders Medication Instructions Recorded Confirmed Losartan Potassium 50 mg PO BID 09/13/15 04/16/20 Metoprolol Tartrate 37.5 mg PO BID 09/13/15 04/16/20 amLODIPine [Norvasc] 10 mg PO DAILY 09/13/15 04/16/20 Aspirin 81 mg PO DAILY 06/27/19 04/16/20 Calcium Carbonate [Tums (Calcium 1,000 mg PO BID 06/27/19 04/16/20 Carbonate 500mg)] Diclofenac Sodium [Voltaren] TOP DAILY PRN 06/27/19 06/27/19 Furosemide [Lasix] 20 mg PO DAILY 06/27/19 04/16/20 Nitroglycerin 0.4 mg SL DAILY PRN 06/27/19 04/16/20 Isosorbide Mononitrate ER [Imdur] 60 mg PO DAILY #30 tablet 08/21/19 04/16/20 Acetaminophen [Tylenol] 650 mg PO Q4HR PRN MDD NTE 3g per 02/01/20 04/16/20 24hours Magnesium Hydroxide [Milk of 30 ml PO DAILY PRN MDD If no BM in 02/01/20 04/16/20 Magnesia] 3 days QUEtiapine [SEROquel] 75 mg PO QPM 02/01/20 04/16/20 Tamsulosin HCl [Flomax] 0.4 mg PO DAILY 02/01/20 04/16/20 DULoxetine [Cymbalta] 30 mg PO DAILY 03/07/20 03/07/20 QUEtiapine [SEROquel] 25 mg PO .MORNING 03/07/20 04/16/20 HYDROcod/ACETAM 5/325 [[place] 5/325] 1 tab PO TID 04/04/20 04/16/20 Hydrocodone/Acetaminophen [[place] 1 tab PO DAILY PRN 04/16/20 04/16/20 5-325 Tablet] traZODone [Desyrel] 50 mg PO QPM 05/03/20 05/03/20 Docusate Sodium [Dss] 1 cap PO DAILY 07/11/20 07/11/20 Senna [Senokot] 1 tab PO DAILY PRN 07/11/20 07/11/20 - Allergies Allergies/Adverse Reactions: Allergies Allergy/AdvReac Type Severity Reaction Status Date / Time hydrochlorothiazide AdvReac Unknown Verified 08/13/20 16:31 lisinopril AdvReac Unknown Verified 08/13/20 16:31 rosuvastatin calcium * AdvReac Unknown Verified 08/13/20 16:31 [From [facility]] Review of Systems - Constitutional Constitutional: reports: Weight loss (weight 182.6lb 09/01/2020; weight 187.1lb 08/05/2020; weight 195lb on 07/08/2020). denies: Fever, Poor appetite - Eyes Eyes: denies: Irritation - Ears, Nose & Throat Ears, Nose & Throat: denies: Hearing aids - Cardiovascular Cardiovascular: reports: Edema (controlled and refuses compression hose). denies: Palpitations - Respiratory Respiratory: denies: Cough, Wheezing - Gastrointestinal Gastrointestinal: reports: Good appetite. denies: Constipation (reports to regular bowel movements with use of colace 250mg daily occurring almost daily), Nausea - Genitourinary Genitourinary: denies: Dysuria - Musculoskeletal Musculoskeletal: reports: Stiffness, Limited range of motion (right shoulder), Joint pain (shoulders and knees), Assistive devices - Integumentary Integumentary: reports: Dryness - Neurological Neurological: reports: General weakness, Memory problems - Psychiatric Psychiatric: reports: Depression, Anxiety, Behavior disturbances. denies: Hallucinations (denies hallucinations visual and auditory) - Endocrine Endocrine: denies: Hypothyroidism - Hematologic/Lymphatic Hematologic/Lymph: reports: Other (No history of recurrent infections) - All Other Systems All Other Systems: reports: Reviewed and negative (ROS supplemented by patient's caregiver Yun due to patient's dementia) Physical Exam - Vital Signs Temperature: 36.3 C Pulse Rate: 58 O2 Saturation: 98 (on RA) Blood Pressure: 142/79 - Physical Exam General Appearance: positive: No acute distress, Alert, Other (OOB in wheelchair) Eyes Bilateral: positive: Normal inspection ENT: positive: No signs of dehydration, Other (b/l temporal wasting) Neck: positive: Trachea midline Cardiovascular: positive: Bradycardia, Systolic murmur Respiratory: positive: No respiratory distress, Breath sounds nml Abdomen: positive: Non-tender, Soft, Nml bowel sounds Skin: positive: Dryness, Other (visible sun exposure with tanning to scalp, face and upper arms) Extremities: positive: Pedal edema (BLE trace to mid-tibia (stable)) Neurologic/Psychiatric: positive: Mood/affect nml, Disoriented to place, Other (Engaged and pleasantly confused without s/s of agitation.) Palliative Care - POLST Patient has POLST: Yes POLST Status: DNR, Comfort Measures Pain: Comment (pain controlled with hydrocodone/acetaminophen scheduled TID) Constipation: Managed - Palliative Care Discussion: The patient has displayed recent increased paranoia with out reported visual or auditory hallucination due to his underlying dementia with behavioral disturbances and would benefit from further increase of his quetiapine for comfort and management of his anxiety and agitation. He continues on duloxetine for his mood as well as generalized osteoarthritic pain with multiple joint involvement. The patient's daughter/DPOA, Fatoumata recognizes that the patient is having further cognitive decline that is recognized by herself as well as her siblings. Ultimately, the family wishes for the patient to be comfortable in his home environment of [facility] and the family are appreciative of the caregiving that the patient has received at his adult family home. The patient himself, wishes to have improved mood sleep quality and reeducated on the need to limit napping during the day to ensure restful sleep at night. With the increase of evening quetiapine from 50mg to 75 mg this will add some sedative properties to assist with sleeping and would also continue trazodone 50 mg at bedtime. Impression and Recommendations - Palliative Care Impression: This is an 85-year-old man with significant cardiac history with insomnia, dementia with behavioral disturbances, and osteoarthritic pain of multiple joints. Patient would benefit from further dose titration of his quetiapine for his underlying anxiety and agitation and daughter/DPOA in agreement. Palliative care will continue to provide support, care coordination, pain and symptom management as well as anticipatory guidance. Recommendations/Counseling Done: 1. Dementia with behavioral disturbances. No reports of auditory or visual hallucinations. Recent increase in paranoia. Chronic. Progressive. Likely vascular nature given his underlying cardiac history. On no disease modifying agents. Due to recent events and increased paranoia will increase quetiapine to 75 mg in the evening after review of purpose, dose and side effects with patient's daughter/DPDAVID Fatoumata who is in agreement. Continue quetiapine 25 mg in the morning. May consider addition of afternoon dose of quetiapine 25 mg if needed in the future. Continue duloxetine 30 mg daily for mood stabilization and underlying anxiety. Patient continues to have noted weight loss that is gradual and will continue to monitor. Supportive listening provided to the patient's daughter who recognizes further cognitive changes that are occurring with progression of the patient's dementia. Normalized the patient's daughter's feelings regarding progression of dementia. Given the patient's advanced age and chronic comorbidities a gradual decline is expected. 2. Insomnia. Longstanding history. Discussed reduction of daytime napping to promote no evening sleep with the patient however, due to the patient's underlying dementia will continue to require prompting. Continue trazodone 50 mg nightly. 3. Osteoarthritis, multiple joints involved. Presently controlled. Continue hydrocodone/acetaminophen 5/325 mg 1 tablet 3 times daily at 8 AM, 2 PM, and 8 PM. He has acetaminophen is available as needed not to exceed 3 g daily from all sources. Continue Voltaren gel application as needed to affected joints. Continue duloxetine 30 mg daily. Follow-up with cautions. Continue to monitor the patient's response to medication regimen and adjust pain regimen as needed. 4. Advanced care planning. Patient has POLST in place as DN AR with comfort measures. Patient with recent exacerbation of behavioral disturbances due to his underlying dementia. Patient's DPOA/daughter and children recognizes the patient is advancing cognitively in regards to his dementia. Discussed tools and strategies to handle interacting and engaging with the patient with the patient's daughter/DPOA. Empathetic listening provided. Ultimate goal of the family is for comfort measures with in the adult family home environment with eventual transition to hospice. CPT 04567 Plan of care reviewed with Yun with questions answered and addressed as well as with the patient. Contacted the patient's daughter/DPFelisha HERNANDEZyl at [phone] and discussed plan of care at length with questions answered and addressed in agreement. At daughter's request to send new Rx of quetiapine [facility]. Supportive listening provided to the daughter. Disclaimer: The chart note was formulated using voice recognition technology and unfortunately sound alike errors may occur.
== END 2020-09-19 14:01 | disposition home or self-care (01) ==
LOC: PC 14:00
PROVIDERS: ATTEND Nurse Practitioner Family
DX: Z51.5 Encounter for palliative care (principal); F03.91 Unspecified dementia, unspecified severity, with behavioral disturbance; G47.00 Insomnia, unspecified; M15.9 Polyosteoarthritis, unspecified; R63.4 Abnormal weight loss; Z66 Do not resuscitate
CPT/HCPCS: 99349

== ENCOUNTER 2020-09-21 06:12 | Outpatient (CLI) | payer MEDICARE | END 2020-09-21 06:13 | disposition critical access hospital (66) | LOC: EMS 06:12 | DX: R07.9 Chest pain, unspecified (principal) | CPT/HCPCS: A0425; A0427 ==

== ENCOUNTER 2020-09-21 06:25 | Inpatient (IN) | payer MEDICARE ==
--- NOTE | 2020-09-21 06:34 | ED Physician Documentation ---
PD HPI CHEST PAIN - Stated complaint Stated Complaint: CP - Chief complaint Chief Complaint: Cardiac - History obtained from History obtained from: Patient, EMS - History of Present Illness Timing - onset: How many weeks ago (patient states he has had chest pressure/pain intermittently over the past week or so. Had been with some activity, some at rest. This morning had chest pressure starting about 5 am while lying in bed.) Timing - onset during: Sleep, Rest Timing - duration: Hours (1 1/2 - 2 hours this morning. Has had it intermittent the past week or so.) Timing - details: Abrupt onset, Now resolved Quality: Pressure, Tightness Radiation: No: Jaw, Neck, Back Improved by: Rest Worsened by: No: Inspiration, Movement, Palpation Associated symptoms: Shortness of air, General Weakness. No: Nausea, Feeling faint / dizzy Similar symptoms before: Diagnosis (had CAD with 5 vessel bypass 30 years ago. No recent known CAD.) Recently seen: Not recently seen Review of Systems Constitutional: denies: Fever, Chills Nose: reports: Congestion (mild). denies: Rhinorrhea / runny nose Throat: denies: Sore throat Respiratory: denies: Cough GI: denies: Abdominal Pain, Nausea, Vomiting, Diarrhea Musculoskeletal: reports: Extremity swelling (minimal edema in ankles) Neurologic: denies: Focal weakness, Numbness PD PAST MEDICAL HISTORY - Past Medical History Cardiovascular: Congestive heart failure (EF 55-60%), Hypertension, Coronary artery disease, DC, Atrial fibrillation Respiratory: None Neuro: Dementia Endocrine/Autoimmune: None GI: None : Benign prostate hypertrophy HEENT: None Psych: Anxiety Musculoskeletal: Osteoarthritis Derm: None - Past Surgical History Past Surgical History: Yes General: Other Ortho: Hip replacement, Other Cardiovascular: CABG Neuro: Craniotomy HEENT: Cataracts - Present Medications Home Medications: Ambulatory Orders Medication Instructions Recorded Confirmed Losartan Potassium 50 mg PO BID 09/13/15 09/21/20 Metoprolol Tartrate 37.5 mg PO BID 09/13/15 09/21/20 amLODIPine [Norvasc] 10 mg PO DAILY 09/13/15 09/21/20 Aspirin 81 mg PO DAILY 06/27/19 09/21/20 Calcium Carbonate [Tums (Calcium 1,000 mg PO BID 06/27/19 04/16/20 Carbonate 500mg)] Diclofenac Sodium [Voltaren] TOP DAILY PRN 06/27/19 06/27/19 Furosemide [Lasix] 20 mg PO DAILY 06/27/19 09/21/20 Nitroglycerin 0.4 mg SL DAILY PRN 06/27/19 09/21/20 Acetaminophen [Tylenol] 650 mg PO Q4HR PRN MDD NTE 3g per 02/01/20 04/16/20 24hours Magnesium Hydroxide [Milk of 30 ml PO DAILY PRN MDD If no BM in 02/01/20 04/16/20 Magnesia] 3 days QUEtiapine [SEROquel] 50 mg PO QPM 02/01/20 09/21/20 Tamsulosin HCl [Flomax] 0.4 mg PO DAILY 02/01/20 04/16/20 DULoxetine [Cymbalta] 30 mg PO DAILY 03/07/20 09/21/20 QUEtiapine [SEROquel] 25 mg PO .MORNING 03/07/20 09/21/20 HYDROcod/ACETAM 5/325 [[place] 5/325] 1 tab PO TID 04/04/20 09/21/20 Hydrocodone/Acetaminophen [[place] 1 tab PO Q6HR PRN 04/16/20 09/21/20 5-325 Tablet] traZODone [Desyrel] 50 mg PO QPM 05/03/20 09/21/20 Docusate Sodium [Dss] 1 cap PO DAILY 07/11/20 09/21/20 Senna [Senokot] 1 tab PO DAILY PRN 07/11/20 07/11/20 Isosorbide Mononitrate ER [Imdur] 60 mg PO BID 09/21/20 09/21/20 hydrOXYzine HCL [Hydroxyzine HCl] 25 mg PO QID 09/21/20 09/21/20 - Allergies Allergies/Adverse Reactions: Allergies Allergy/AdvReac Type Severity Reaction Status Date / Time hydrochlorothiazide AdvReac Unknown Verified 09/21/20 06:34 lisinopril AdvReac Unknown Verified 09/21/20 06:34 rosuvastatin calcium * AdvReac Unknown Verified 09/21/20 06:34 [From [place]] - Living Situation Living Situation: reports: Alone (has caregivers there) Living Arrangement: reports: At home - Social History Does the pt smoke?: No Smoking Status: Never smoker Does the pt drink ETOH?: No Does the pt have substance abuse?: No - Immunizations Immunizations: TDAP >10years/unknown - POLST Patient has POLST: Yes PD ED PE NORMAL - Vitals Vital signs reviewed: Yes - General General: No acute distress, Well developed/nourished. No: Alert and oriented X 3 (oriented to person and place, but not time. Has recall of CP this morning and past few days. ) - HEENT HEENT: Pharynx benign - Neck Neck: Supple, no meningeal sign, No adenopathy, No JVD - Cardiac Cardiac: No murmur. No: RRR (irregular c/w fib and slightly tachy. ) - Respiratory Respiratory: Clear bilaterally - Abdomen Abdomen: Soft, Non tender - Derm Derm: Normal color, Warm and dry - Extremities Extremities: No tenderness to palpate, Normal ROM s pain, No calf tenderness / cord, Other (1+ edema pretibial. ) - Neuro Neuro: Alert and oriented X 3, No motor deficit, Normal speech Results - Vitals Vitals: Vital Signs - 24 hr 09/21/20 09/21/20 09/21/20 06:31 06:52 07:10 Temperature 36.8 C Heart Rate 122 H 126 H 111 H Respiratory 20 18 20 Rate Blood Pressure 168/116 H 181/162 H O2 Saturation 100 98 99 09/21/20 09/21/20 09/21/20 07:34 07:52 07:57 Temperature Heart Rate 121 H 119 H 85 Respiratory 22 17 17 Rate Blood Pressure 160/104 H 152/105 H 157/87 H O2 Saturation 96 98 96 09/21/20 09/21/20 09/21/20 08:00 08:10 08:13 Temperature Heart Rate 86 77 77 Respiratory 17 18 Rate Blood Pressure 137/76 H 143/86 H 146/85 H O2 Saturation 96 97 97 09/21/20 09/21/20 09/21/20 08:15 08:32 08:33 Temperature Heart Rate 103 H 101 H 97 Respiratory 17 16 19 Rate Blood Pressure 142/85 H 136/80 H 126/93 H O2 Saturation 98 97 94 09/21/20 09/21/20 09/21/20 08:59 09:12 09:18 Temperature Heart Rate 82 104 H 113 H Respiratory 20 17 20 Rate Blood Pressure 150/94 H 146/126 H 121/95 H O2 Saturation 97 98 98 Oxygen O2 Source Room air - EKG (time done) 06:24 Rate: Rate (enter#) (108) Rhythm: Atrial fibrillation QRS: LVH Ischemia: Non specific changes. No: ST elevation c/w ischemia - Labs Labs: Laboratory Tests 09/21/20 09/21/20 09/21/20 07:05 07:05 07:05 WBC 11.4 H RBC 4.24 L Hgb 13.5 L Hct 40.6 L MCV 95.8 H MCH 31.8 H MCHC 33.3 RDW 13.1 Plt Count 227 MPV 9.8 Neut # (Auto) 10.1 H Lymph # (Auto) 0.7 L Martin # (Auto) 0.6 Eos # (Auto) 0.1 Baso # (Auto) 0.0 Absolute Nucleated RBC 0.00 Nucleated RBC % 0.0 Sodium 139 Potassium 3.6 Chloride 102 Carbon Dioxide 26 Anion Gap 11.0 BUN 30 H Creatinine 1.7 H Estimated GFR (MDRD) 39 L Glucose 115 H Calcium 9.5 Magnesium 2.4 Total Bilirubin 0.7 AST 12 ALT 10 Alkaline Phosphatase 78 Troponin I High Sens 55.4 H* B-Natriuretic Peptide Total Protein 7.2 Albumin 4.1 Globulin 3.1 Albumin/Globulin Ratio 1.3 Lipase 29 09/21/20 09/21/20 07:05 08:16 WBC RBC Hgb Hct MCV MCH MCHC RDW Plt Count MPV Neut # (Auto) Lymph # (Auto) Martin # (Auto) Eos # (Auto) Baso # (Auto) Absolute Nucleated RBC Nucleated RBC % Sodium Potassium Chloride Carbon Dioxide Anion Gap BUN Creatinine Estimated GFR (MDRD) Glucose Calcium Magnesium Total Bilirubin AST ALT Alkaline Phosphatase Troponin I High Sens 150.7 H* B-Natriuretic Peptide 484 H Total Protein Albumin Globulin Albumin/Globulin Ratio Lipase - Rads (name of study) chest xray Radiology: Prelim report reviewed, EMP read contemporaneously (s/p CABG. No acute process in lungs. ), See rad report PD MEDICAL DECISION MAKING - ED course Complexity details: reviewed old records (Palliative Care noted recently), reviewed results (elevated trop with increase. Could be type 1 or 2 ischemia, given also rapid atrial fib. HR improved with Metoprolol IV. ), considered differential (known remote CAD/CABG. h/o atrial fib. Has had a week of intermittent CP, with some exertional component. Rest CP this morning. Will need r/o by enzymes and then possible stress/ECHO.), d/w patient, d/w family (Fatoumata, daughter, POA, I discussed with her and in agreement for hospitalization/care here. Pt does not want interventional cardiology.) Departure - Departure Disposition: 66 [facility] DC/Xfer Clinical Impression: Atrial fibrillation with rapid ventricular response, Elevated troponin Chest pain Qualifiers: Chest pain type: precordial pain Qualified Code(s): R07.2 - Precordial pain Condition: Stable Record reviewed to determine appropriate education?: Yes
[2020-09-21 07:13] LABS: BASOPHILS % (AUTO) 0.3 %; EOSINOPHILS # (AUTO) 0.1 10^3/uL (0.0-0.7); EOSINOPHILS % (AUTO) 0.5 %; HCT - HEMATOCRIT 40.6 % (42.0-52.0); HGB - HEMOGLOBIN 13.5 g/dL (14.0-18.0); LYMPHOCYTES # (AUTO) 0.7 10^3/uL (1.5-3.5); LYMPHOCYTES % (AUTO) 5.8 %; MEAN CORPUSCULAR HEMOGLOBIN 31.8 pg (27.0-31.0); MEAN CORPUSCULAR HGB CONC 33.3 g/dL (32.0-36.0); MEAN CORPUSCULAR VOLUME 95.8 fL (80.0-94.0); MEAN PLATELET VOLUME 9.8 fL (7.4-11.4); MONOCYTES # (AUTO) 0.6 10^3/uL (0.0-1.0); MONOCYTES % (AUTO) 5.2 %; NEUTROPHILS # (AUTO) 10.1 10^3/uL (1.5-6.6); NEUTROPHILS % (AUTO) 87.9 %; PLT - PLATELET COUNT 227 10^3/uL (130-450); RED BLOOD COUNT 4.24 10^6/uL (4.70-6.10); RED CELL DISTRIBUTION WIDTH 13.1 % (12.0-15.0); WHITE BLOOD COUNT 11.4 x10^3/uL (4.8-10.8)
[2020-09-21 07:22] LABS: ALBUMIN 4.1 g/dL (3.2-5.5); ALBUMIN/GLOBULIN RATIO 1.3 (1.0-2.2); BILIRUBIN,TOTAL 0.7 mg/dL (0.2-1.0); CALCIUM 9.5 mg/dL (8.5-10.3); CREATININE 1.7 mg/dL (0.6-1.2); MAGNESIUM 2.4 mg/dL (1.7-2.8); POTASSIUM 3.6 mmol/L (3.5-5.0); TOTAL PROTEIN 7.2 g/dL (6.7-8.2)
[2020-09-21] MEDS ORDERED: METOPROLOL 5 MG/5 ML VIAL IVP STA ×2 (07:46→09:37)
--- NOTE | 2020-09-21 08:28 | XRAY Report ---
PROCEDURE: Chest 1 View X-Ray INDICATIONS: Chest Pain TECHNIQUE: One view of the chest was acquired. COMPARISON: Chest single view 06/27/2019 FINDINGS: Surgical changes and devices: Sternotomy wires, prior CABG. Lungs and pleura: No pleural effusions or pneumothorax. Lungs are clear. Mediastinum: Mediastinal contours appear normal. Heart size is normal. Bones and chest wall: No suspicious bony lesions. Overlying soft tissues appear unremarkable. IMPRESSION: Prior CABG, no acute disease. Reviewed by: Duc Gandhi MD on 09/21/2020 8:27 AM PDT Approved by: Duc Gandhi MD on 09/21/2020 8:27 AM PDT Station ID: [id number]
[2020-09-21] MEDS ORDERED: METOPROLOL TARTRATE 50 MG TABLET PO STA (09:37)
[2020-09-21] MEDS ORDERED: ACETAMINOPHEN 325 MG TABLET PO PRN (09:56)
[2020-09-21] MEDS ORDERED: SODIUM CHLORIDE FLUSH 0.9% 10 ML SYRINGE IVP PRN (09:56)
[2020-09-21] MEDS ORDERED: ONDANSETRON 4 MG/2 ML VIAL IVP PRN (09:56)
[2020-09-21] MEDS ORDERED: NITROGLYCERIN SL 0.4 MG TABLET SL PRN (09:58)
--- NOTE | 2020-09-21 10:09 | HISTORY & PHYSICAL EXAMINATION ---
Chief Complaint - Chief Complaint Chief Complaint: Chest pain History of Present Illness - Admitted From Admitted From:: ED - History Obtained From History obtained from: ED provider and patient - History of Present Illness HPI Comment/Other: This is an 86-year-old WM who lives in assisted living facility [facility] because of dementia with behavioral disturbances. He is followed by Palliative Care provider Radha Carter NP. Just 2 days ago there was a behavioral problem where he exited assisted living screaming and cussing into the night air but did return on his own volition, and the next day apologized for his behavior. He has insomnia. There is a remote history of A. fib, CAD with CABG, HTN, arthritis, BPH. He came to the ER for c/o chest pain with activity during the last 2 days and then resting chest pain today. This was corroborated by staff at [facility] and by his daughter, providing the history to the ED provider, but with no details regarding those symptoms. The patient only points to his sternum, but gives me no details whatsoever. In the ED he was found to be in A. fib with RVR, with heart rates in the 140s. He was treated with metoprolol 5 mg IV x1 and heart rate decreased to the 90-110 range. His troponins have been cycled and are showing acute NSTEMI, with first troponin 56, next one going up to 150. The patient is being admitted to the Hospitalist team for treatment of acute NSTEMI and A. fib with RVR. The daughter was able to tell the ED provider that no "big tests" are requested. His POLST indicates DNR and Comfort Focused treatment. History - Past Medical History Cardiovascular: reports: Congestive heart failure (EF 55-60%), Hypertension, Coronary artery disease, GA, Atrial fibrillation Respiratory: reports: None Neuro: reports: Dementia, Head injury (Subdural hematoma evacuation at age 17) Endocrine/Autoimmune: reports: None GI: reports: None : reports: Benign prostate hypertrophy HEENT: reports: None Psych: reports: Anxiety Musculoskeletal: reports: Osteoarthritis Derm: reports: None MRSA Hx?: No - Past Surgical History General: reports: Other Ortho: reports: Hip replacement, Other Cardiovascular: reports: CABG Neuro: reports: Craniotomy HEENT: reports: Cataracts - Family & Social History Family History: Mother: , Father: , GA, Sister: Alive and Well, Brother: , Cancer Living arrangement: Assisted living Living Situation: Alone (has caregivers there) - Substance History Use: Uses substance without health or social issues: NONE (Former tobacco use and former alcoholic) - POLST Patient has POLST: Yes POLST Status: DNR Meds/Allgy - Home Medications Home Medications: Ambulatory Orders Medication Instructions Recorded Confirmed Losartan Potassium 50 mg PO BID 09/13/15 09/21/20 Metoprolol Tartrate 37.5 mg PO BID 09/13/15 09/21/20 amLODIPine [Norvasc] 10 mg PO DAILY 09/13/15 09/21/20 Aspirin 81 mg PO DAILY 06/27/19 09/21/20 Calcium Carbonate [Tums (Calcium 1,000 mg PO BID 06/27/19 04/16/20 Carbonate 500mg)] Diclofenac Sodium [Voltaren] TOP DAILY PRN 06/27/19 06/27/19 Furosemide [Lasix] 20 mg PO DAILY 06/27/19 09/21/20 Nitroglycerin 0.4 mg SL DAILY PRN 06/27/19 09/21/20 Acetaminophen [Tylenol] 650 mg PO Q4HR PRN MDD NTE 3g per 02/01/20 04/16/20 24hours Magnesium Hydroxide [Milk of 30 ml PO DAILY PRN MDD If no BM in 02/01/20 04/16/20 Magnesia] 3 days QUEtiapine [SEROquel] 50 mg PO QPM 02/01/20 09/21/20 Tamsulosin HCl [Flomax] 0.4 mg PO DAILY 02/01/20 09/21/20 DULoxetine [Cymbalta] 30 mg PO DAILY 03/07/20 09/21/20 QUEtiapine [SEROquel] 25 mg PO .MORNING 03/07/20 09/21/20 HYDROcod/ACETAM 5/325 [[place] 5/325] 1 tab PO TID 04/04/20 09/21/20 Hydrocodone/Acetaminophen [[place] 1 tab PO Q6HR PRN 04/16/20 09/21/20 5-325 Tablet] traZODone [Desyrel] 50 mg PO QPM 05/03/20 09/21/20 Docusate Sodium [Dss] 1 cap PO DAILY 07/11/20 09/21/20 Senna [Senokot] 1 tab PO DAILY PRN 07/11/20 07/11/20 Isosorbide Mononitrate ER [Imdur] 60 mg PO BID 09/21/20 09/21/20 hydrOXYzine HCL [Hydroxyzine HCl] 25 mg PO QID 09/21/20 09/21/20 - Allergies Allergies/Adverse Reactions: Allergies Allergy/AdvReac Type Severity Reaction Status Date / Time hydrochlorothiazide AdvReac Unknown Verified 09/21/20 06:34 lisinopril AdvReac Unknown Verified 09/21/20 06:34 rosuvastatin calcium * AdvReac Unknown Verified 09/21/20 06:34 [From Crestor] Review of Systems - Cardiovascular Cariovascular: reports: Chest pain - Neurological Neurological: reports: Memory problems - Psychiatric Psychiatric: reports: Other (Behavioral disturbances) - All Other Systems All Other Systems: reports: Reviewed and negative Exam - Vital Signs Vital Signs: Vital Signs x48h Temp Pulse Resp BP Pulse Ox 09/21/20 09:48 97 18 138/75 H 99 09/21/20 09:18 113 H 20 121/95 H 98 09/21/20 09:12 104 H 17 146/126 H 98 09/21/20 08:59 82 20 150/94 H 97 09/21/20 08:33 97 19 126/93 H 94 09/21/20 08:32 101 H 16 136/80 H 97 09/21/20 08:15 103 H 17 142/85 H 98 09/21/20 08:13 77 18 146/85 H 97 09/21/20 08:10 77 143/86 H 97 09/21/20 08:00 86 17 137/76 H 96 09/21/20 07:57 85 17 157/87 H 96 09/21/20 07:52 119 H 17 152/105 H 98 09/21/20 07:34 121 H 22 160/104 H 96 09/21/20 07:10 111 H 20 99 09/21/20 06:52 126 H 18 181/162 H 98 09/21/20 06:31 36.8 C 122 H 20 168/116 H 100 - Physical Exam General Appearance: positive: No acute distress, Alert Eyes Bilateral: positive: Normal inspection, EOMI ENT: positive: ENT inspection nml, No signs of dehydration Neck: positive: Nml inspection, No JVD Respiratory: positive: No respiratory distress, Breath sounds nml Cardiovascular: positive: No murmur, Irregularly irregular Abdomen: positive: Non-tender, Nml bowel sounds, No distention Skin: positive: Warm, Dry Extremities: positive: Non-tender, No pedal edema Neurologic/Psychiatric: positive: Motor nml, Disoriented to place, Disoriented to time Conclusion/Plan - Problem List (1) NSTEMI (non-ST elevated myocardial infarction) Conclusion/Plan: Patient's troponin is climbing, it is more than doubling (50>> 150>> 700) The rapid Afib rhythm may be the cause of the GA or vice versa. We will place the patient on telemetry, start therapeutic Lovenox for 24 hours, statin, continue daily aspirin, Imdur, beta-blockers, sl nitrates prn. We will stop his usual Amlodipine, and in its place will use Cardizem orally for both coronary vasodilation and heart rate control of rapid A. fib Obtain Echo to evaluate regional wall motion and LVEF. Check serial troponins until we see their peak. Check fasting lipid panel and treat per guidelines. No transfer for coronary angiography is planned. Medical management only. (2) Chest pain Conclusion/Plan: Since the history is of chest pain with exertion for the last 2 days and not palpitations as the primary symptom, he probably had accelerating angina that has now resulted in his NSTEMI. Treat as above in #1. Qualifiers: Chest pain type: precordial pain Qualified Code(s): R07.2 - Precordial pain (3) Atrial fibrillation with rapid ventricular response Conclusion/Plan: There is a remote history of A. fib. He was only on aspirin for stroke prophylaxis, no anticoagulation. We will change his metoprolol tartrate to metoprolol succinate for sustained rate control, and will add Cardizem, and not use his amlodipine, for rate contr ol plus cor vasodilation. Continue daily baby aspirin. We will give 24 hours of therapeutic Lovenox. We will then determine if he is an anticoagulation candidate or not. (4) SERA (acute kidney injury) Conclusion/Plan: Etiology unclear, possibly from using NSAID (Voltaren) and ARB (losartan). Perhaps he had renal hypoperfusion due to his rapid heart rate in A. fib. Avoid nephrotoxins. We will continue his daily Lasix since he is euvolemic and not order IV fluids. Follow BMP daily. (5) Dementia with behavioral disturbance Conclusion/Plan: We will continue with his usual doses of Quetiapine and Desyrel and Hydroxyzine. We will anticipate sundowning, and he may need additional sedatives. Will ask for Palliative Care provider, Lynette Carter NP, for consult. (6) BPH (benign prostatic hyperplasia) Conclusion/Plan: Continue with his tamsulosin. (7) Osteoarthritis Conclusion/Plan: Hold Voltaren currently because of the SERA. We will use Tylenol or Tylenol with codeine for pain control. - Lab Results Fish Bones: 09/21/20 07:05 09/21/20 07:05
[2020-09-21] MEDS ORDERED: HYDROcod/ACETAM 5/325 MG TABLET PO PRN (10:35)
--- NOTE | 2020-09-21 10:37 | PHARMACY PROGRESS NOTE ---
- Best Possible Medication History Admit Date and Time: 09/21/20 0930 Processed by: Nursing Medication History completed: Yes Secondary Source(s): Physician records, Pharmacy records, Insurance records Med list confirmed and updated by nursing. As the person ultimately responsible for medication therapy, providers are able to order a medication from an existing home medication list in [facility] via the "Reconcile Routine" prior to Confirmation of that medication by underwriting support manager. Such practice is discouraged except when the physician, in their clinical judgment, deems that a medical need exists for a medication without regard to previous use.
[2020-09-21 10:48] LABS: B. PARAPERTUSSIS- RESP PCR PAN NOT DETECTED; B. PERTUSSIS- RESP PCR PANEL NOT DETECTED; C. PNEUMONIAE- RESP PCR PANEL NOT DETECTED; CORONAVIRUS 229E-RESP PCR NOT DETECTED; CORONAVIRUS HKU1-RESP PCR NOT DETECTED; CORONAVIRUS NL63-RESP PCR NOT DETECTED; CORONAVIRUS OC43-RESP PCR NOT DETECTED; HUMAN METAPNEUMOVIRUS NOT DETECTED; INFLUENZA A- RESP PCR PANEL NOT DETECTED; INFLUENZA B - RESP PCR PANEL NOT DETECTED; M. PNEUMONIAE- RESP PCR PANEL NOT DETECTED; PARAINFLUENZA VIRUS 1 NOT DETECTED; PARAINFLUENZA VIRUS 2 NOT DETECTED; PARAINFLUENZA VIRUS 3 NOT DETECTED; PARAINFLUENZA VIRUS 4 NOT DETECTED; RHINOVIRUS/ENTEROVIRUS NOT DETECTED; RSV- RESP PCR PANEL NOT DETECTED; SARS-CoV-2 -RESP PCR PANEL NOT DETECTED
[2020-09-21 11:25] LABS: INR 1.1 (0.8-1.2)
[2020-09-21] MEDS: ENOXAPARIN 80 MG/0.8 ML SYRINGE SUBQ SCH ×2 (11:36→20:26)
[2020-09-21] MEDS: ASPIRIN CHEW 81 MG TABLET PO SCH (11:36)
[2020-09-21] MEDS: DULoxetine 30 MG CAPSULE PO SCH (11:37)
[2020-09-21] MEDS ORDERED: hydrOXYzine PAMOATE 25 MG CAPSULE PO SCH (13:00)
[2020-09-21] MEDS ORDERED: QUEtiapine 25 MG TABLET PO PRN (13:17)
[2020-09-21] MEDS: diltiaZEM 30 MG TABLET PO SCH ×2 (13:21→21:30)
[2020-09-21] MEDS: HYDROcod/ACETAM 5/325 MG TABLET PO SCH ×2 (13:21→20:31)
--- NOTE | 2020-09-21 14:03 | CONSULTATION NOTE ---
Palliative Care Follow Up - Referral Referring Provider: Dr. Kimberly Suh Time of Visit: 3633-8009 Referral setting: Hospitalized patient Referral Reason: Dementia with behaviors/Afib/IN - Information Sources Records reviewed: Previous records reviewed History/Review of Systems obtained from: Patient, Other (hospitalist) Exam limitations: Clinical condition (Advanced Dementia) - History of Present Illness Update Brief HPI Update: This is an 85-year-old gentleman who was seen and evaluated today at the request of hospitalist due to an admission for acute IN in the setting of atrial fibrillation with RVR VR and dementia with behavioral disturbance. The patient presented to the emergency department yesterday evening as he was having increased chest pain in the facility that he resides in, [facility] send him out for management and was found to have an acute NSTEMI with elevated troponin upwards to 733 performed today 09/21 and an elevated BNP of 788.He was found to be in A. fib with RVR with a heart rate in the 140s. He responded to metoprolol administration. He presently reports that he is having no chest pain or palpitations. He is comfortable and in on being monitored on telemetry. He is scheduled for an echocardiogram later today. In discussion with hospitalist, Dr. Angel adjustments have been made to the patient's medication regimen changing amlodipine to Cardizem and changing his metoprolol from tartate to succinate. The patient has an extensive cardiac history including history of previous myocardial infarction, congestive heart failure, coronary artery disease and history of CABG. The patient was last seen by this MOLDER PUNCH for increased agitation and behavioral disturbances in the setting of advanced dementia and his quetiapine was increased in the evening from 50 mg to 75 mg and is presently not reflected on his medication regimen. Presently he is also shown to be on scheduled hydroxyzine which per the [employer] is not the case and would recommend this being discontinued and this has been communicated to Dr. Angel. Given the patient's underlying dementia he is at risk for sundowning and/or delirium while hospitalized. The patient is seen sitting up in recliner chair in his hospital room. No evidence of distress and recognizes this MOLDER PUNCH upon entrance. Past Medical History: Patient has a past medical history of congestive heart failure ejection fraction 55 to 60%, hypertension, coronary artery disease, IN, atrial fibrillation, dementia, subdural hematoma with evacuation age 17, BPH, anxiety, osteoarthritis, insomnia, status post CABG. Social History - Living Situation Living arrangement: Adult family home Living Situation: Alone (has caregivers there) Support System: Patient is from his . The patient and his had 6 children together. The patient's daughter, Fatoumata is his DPOA with contact phone [phone]. The patient was born in [place]. He resides at [place] on [facility]. Medications/Allergies - Medications Active Medication List: Active Medications Acetaminophen (Acetaminophen 325 Mg Tablet) 650 mg PO Q4HR PRN PRN Reason: Pain or Fever > 38C (100.4F) Hydrocodone Bitart/Acetaminophen (Hydrocod/Acetam 5/325 Mg Tablet) 1 tab PO TID [facility] Last Admin: 09/21/20 13:21 Dose: 1 tab Documented by: Hydrocodone Bitart/Acetaminophen (Hydrocod/Acetam 5/325 Mg Tablet) 1 tab PO Q6HR PRN PRN Reason: PAIN Aspirin (Aspirin Chew 81 Mg Tablet) 81 mg PO DAILY [facility] Last Admin: 09/21/20 11:36 Dose: 81 mg Documented by: Atorvastatin Calcium (Atorvastatin 40 Mg Tablet) 40 mg PO QPM [facility] Diltiazem HCl (Diltiazem 30 Mg Tablet) 30 mg PO TID [facility] Last Admin: 09/21/20 13:21 Dose: 30 mg Documented by: Docusate Sodium (Docusate Sodium 250 Mg Capsule) 250 mg PO DAILY [facility] Duloxetine HCl (Duloxetine 30 Mg Capsule) 30 mg PO DAILY [facility] Last Admin: 09/21/20 11:37 Dose: 30 mg Documented by: Enoxaparin Sodium (Enoxaparin 80 Mg/0.8 Ml Syringe) 70 mg SUBQ BID [facility] Last Admin: 09/21/20 11:36 Dose: 70 mg Documented by: Furosemide (Furosemide 20 Mg Tablet) 20 mg PO DAILY [facility] Isosorbide Mononitrate (Isosorbide Mononitrate Er 30 Mg Tablet) 60 mg PO BID [facility] Metoprolol Succinate (Metoprolol Succinate 50 Mg Tablet) 50 mg PO BID [facility] Nitroglycerin (Nitroglycerin Sl 0.4 Mg Tablet) 0.4 mg SL DAILY PRN PRN Reason: Chest Pain Ondansetron HCl (Ondansetron 4 Mg/2 Ml Vial) 4 mg IVP Q6HR PRN PRN Reason: Nausea / Vomiting Quetiapine Fumarate (Quetiapine 25 Mg Tablet) 25 mg PO DAILY [facility] Quetiapine Fumarate (Quetiapine 25 Mg Tablet) 75 mg PO QPM [facility] Quetiapine Fumarate (Quetiapine 25 Mg Tablet) 25 mg PO DAILY PRN PRN Reason: Agitation Sodium Chloride (Sodium Chloride Flush 0.9% 10 Ml Syringe) 10 ml IVP PRN PRN PRN Reason: NEEDED PER PROVIDER ORDERS Sodium Chloride (Sodium Chloride Flush 0.9% 10 Ml Syringe) 10 ml IVP 0100,0900,1700 [facility] Trazodone HCl (Trazodone 50 Mg Tablet) 50 mg PO QPM [facility] Losartan Potassium 50 mg PO BID 09/13/15 Metoprolol Tartrate 37.5 mg PO BID 09/13/15 amLODIPine [Norvasc] 10 mg PO DAILY 09/13/15 Aspirin 81 mg PO DAILY 06/27/19 Calcium Carbonate [Tums (Calcium Carbonate 500mg)] 1,000 mg PO BID 06/27/19 Diclofenac Sodium [Voltaren] TOP DAILY PRN 06/27/19 Furosemide [Lasix] 20 mg PO DAILY 06/27/19 Nitroglycerin 0.4 mg SL DAILY PRN 06/27/19 Acetaminophen [Tylenol] 650 mg PO Q4HR PRN MDD NTE 3g per 24hours 02/01/20 Magnesium Hydroxide [Milk of Magnesia] 30 ml PO DAILY PRN MDD If no BM in 3 days 02/01/20 QUEtiapine [SEROquel] 50 mg PO QPM 02/01/20 Tamsulosin HCl [Flomax] 0.4 mg PO DAILY 02/01/20 DULoxetine [Cymbalta] 30 mg PO DAILY 03/07/20 QUEtiapine [SEROquel] 25 mg PO .MORNING 03/07/20 HYDROcod/ACETAM 5/325 [[place] 5/325] 1 tab PO TID 04/04/20 Hydrocodone/Acetaminophen [[place] 5-325 Tablet] 1 tab PO Q6HR PRN 04/16/20 traZODone [Desyrel] 50 mg PO QPM 05/03/20 Docusate Sodium [Dss] 1 cap PO DAILY 07/11/20 Senna [Senokot] 1 tab PO DAILY PRN 07/11/20 Isosorbide Mononitrate ER [Imdur] 60 mg PO BID 09/21/20 hydrOXYzine HCL [Hydroxyzine HCl] 25 mg PO QID 09/21/20 - Allergies Allergies/Adverse Reactions: Allergies Allergy/AdvReac Type Severity Reaction Status Date / Time hydrochlorothiazide AdvReac Unknown Verified 09/21/20 06:34 lisinopril AdvReac Unknown Verified 09/21/20 06:34 rosuvastatin calcium * AdvReac Unknown Verified 09/21/20 06:34 [From [facility]] Review of Systems - Constitutional Constitutional: reports: Weight loss (weight 182.6lb 09/01/2020; weight 187.1lb 08/05/2020; weight 195lb on 07/08/2020). denies: Fever, Poor appetite - Ears, Nose & Throat Ears, Nose & Throat: reports: Hearing loss. denies: Dentures - Cardiovascular Cardiovascular: reports: Edema (improved). denies: Palpitations, Chest pain (resolved, see HPI,recent NSTEMI) - Respiratory Respiratory: denies: Wheezing - Gastrointestinal Gastrointestinal: reports: Good appetite. denies: Constipation, Nausea - Genitourinary Genitourinary: denies: Dysuria - Musculoskeletal Musculoskeletal: reports: Stiffness, Limited range of motion (right shoulder), Assistive devices - Integumentary Integumentary: reports: Dryness - Neurological Neurological: reports: General weakness, Memory problems - Psychiatric Psychiatric: reports: Depression, Anxiety, Behavior disturbances - Hematologic/Lymphatic Hematologic/Lymph: reports: Other (No history of recurrent infections) - All Other Systems All Other Systems: reports: Reviewed and negative (ROS supplemented by hospitalist as patient is a poor historian due to dementia.) Physical Exam - Vital Signs Vital Signs: Vital Signs x48h Temp Pulse Pulse Resp BP BP Pulse Ox 09/21/20 13:21 168/87 H 09/21/20 10:55 36.6 C 97 18 178/84 H 97 09/21/20 10:07 80 17 156/114 H 96 09/21/20 09:48 97 18 138/75 H 99 09/21/20 09:18 113 H 20 121/95 H 98 09/21/20 09:12 104 H 17 146/126 H 98 09/21/20 08:59 82 20 150/94 H 97 09/21/20 08:33 97 19 126/93 H 94 09/21/20 08:32 101 H 16 136/80 H 97 09/21/20 08:15 103 H 17 142/85 H 98 09/21/20 08:13 77 18 146/85 H 97 09/21/20 08:10 77 143/86 H 97 09/21/20 08:00 86 17 137/76 H 96 09/21/20 07:57 85 17 157/87 H 96 09/21/20 07:52 119 H 17 152/105 H 98 09/21/20 07:34 121 H 22 160/104 H 96 09/21/20 07:10 111 H 20 99 09/21/20 06:52 126 H 18 181/162 H 98 09/21/20 06:31 36.8 C 122 H 20 168/116 H 100 - Physical Exam General Appearance: positive: No acute distress, Alert, Other (OOB in recliner in hospital gown) Eyes Bilateral: positive: Normal inspection ENT: positive: No signs of dehydration, Other (b/l temporal wasting, missing lower teeth) Neck: positive: Trachea midline Cardiovascular: positive: Irregularly irregular, Systolic murmur Respiratory: positive: No respiratory distress, Breath sounds nml. negative: Rhonchi Abdomen: positive: Non-tender, Soft, Nml bowel sounds Skin: positive: Dryness, Other (peel and stick tattoo to right forearm that is peeling) Extremities: positive: Pedal edema (BLE trace to mid-tibia (stable)) Neurologic/Psychiatric: positive: Mood/affect nml, Disoriented to place, Other (Engaged and pleasantly confused without s/s of agitation.) Palliative Care - POLST Patient has POLST: Yes POLST Status: DNR, Comfort Measures Pain: No pain (chest pain resolved) - Palliative Care Discussion: Patient has a lengthy cardiac history and unfortunately presented with chest pain to the emergency department that revealed an STEMI and A. fib with RVR. Plan is to have adjustments made to his medication regimen to support his atrial fibrillation and based on his echocardiogram results to weigh in regarding his need of anticoagulation. Upon discharge. Given presently, the patient does not have a history of frequent falls and the daughter's desire to reduce stroke risk weighing benefits versus burdens would be amenable to adding an anticoagulation such as Eliquis for stroke reduction recognizing that it does not eliminate the risk for stroke. However, in the future if the patient has bled score increases or the risk of an adverse event versus benefit of stroke reduction is outweighed then would have a discussion with the daughter/Fatoumata JOSUE regarding discontinuation and continuation of 81 mg aspirin therapy and daughter in full agreement. Lengthy discussion had with the daughter/Fatoumata JOSUE via phone regarding pathophysiology of atrial fibrillation and risk of stroke with questions answered and addressed. Daughter continues to wish to have comfort measures for the patient. Patient has a history of dementia with behavioral disturbances and recently had his quetiapine dose adjustment. Would recommend an as needed dose of quetiapine 25 mg as needed daily for agitation/anxiety. However, the patient is quite friendly and talkative and would benefit from all one-to-one interaction with hospital staff and would likely be beneficial for redirecting the patient's behavior. Discussed with the daughter given the patient's underlying dementia he is at risk for sundowning behavior and/or delirium with understanding verbalized . Results - Lab Results Lab results reviewed: Yes Fish Bones: 09/21/20 07:05 09/21/20 07:05 Lab and Imaging Results: Lab Results x24hrs 09/21/20 09/21/20 09/21/20 Range/Units 11:03 11:03 11:03 WBC (4.8-10.8) x10^3/uL RBC (4.70-6.10) 10^6/uL Hgb (14.0-18.0) g/dL Hct (42.0-52.0) % MCV (80.0-94.0) fL MCH (27.0-31.0) pg MCHC (32.0-36.0) g/dL RDW (12.0-15.0) % Plt Count (130-450) 10^3/uL MPV (7.4-11.4) fL Neut # (Auto) (1.5-6.6) 10^3/uL Lymph # (Auto) (1.5-3.5) 10^3/uL [place] # (Auto) (0.0-1.0) 10^3/uL Eos # (Auto) (0.0-0.7) 10^3/uL Baso # (Auto) (0.0-0.1) 10^3/uL Absolute Nucleated RBC x10^3/uL Nucleated RBC % /100WBC PT 12.0 (9.9-12.6) secs INR 1.1 (0.8-1.2) Sodium (135-145) mmol/L Potassium (3.5-5.0) mmol/L Chloride (101-111) mmol/L Carbon Dioxide (21-32) mmol/L Anion Gap (6-13) BUN (6-20) mg/dL Creatinine (0.6-1.2) mg/dL Estimated GFR (MDRD) (>89) Glucose (70-100) mg/dL Calcium (8.5-10.3) mg/dL Magnesium (1.7-2.8) mg/dL Total Bilirubin (0.2-1.0) mg/dL AST (10-42) IU/L ALT (10-60) IU/L Alkaline Phosphatase (42-121) IU/L Troponin I High Sens 733.4 H* (2.3-19.7) ng/L B-Natriuretic Peptide 788 H (5-100) pg/mL Total Protein (6.7-8.2) g/dL Albumin (3.2-5.5) g/dL Globulin (2.1-4.2) g/dL Albumin/Globulin Ratio (1.0-2.2) Lipase (22-51) U/L Nasal Adenovirus (PCR) Nasal B. parapertussis DNA (PCR) Nasal Coronavir 229E PCR Nasal Coronavir HKU1 PCR Nasal Coronavir NL63 PCR Nasal Coronavir OC43 PCR Nasal Enterovir/Rhinovir PCR Nasal Influenza B PCR Nasal Influenza A PCR Nasal Parainfluen 1 PCR Nasal Parainfluen 2 PCR Nasal Parainfluen 3 PCR Nasal Parainfluen 4 PCR Nasal RSV (PCR) Nasal B.pertussis DNA PCR Nasal C.pneumoniae (PCR) [place] Human Metapneumo PCR Nasal M.pneumoniae (PCR) Nasal SARS-CoV-2 (PCR) 09/21/20 09/21/20 09/21/20 Range/Units 09:40 08:16 07:05 WBC (4.8-10.8) x10^3/uL RBC (4.70-6.10) 10^6/uL Hgb (14.0-18.0) g/dL Hct (42.0-52.0) % MCV (80.0-94.0) fL MCH (27.0-31.0) pg MCHC (32.0-36.0) g/dL RDW (12.0-15.0) % Plt Count (130-450) 10^3/uL MPV (7.4-11.4) fL Neut # (Auto) (1.5-6.6) 10^3/uL Lymph # (Auto) (1.5-3.5) 10^3/uL [place] # (Auto) (0.0-1.0) 10^3/uL Eos # (Auto) (0.0-0.7) 10^3/uL Baso # (Auto) (0.0-0.1) 10^3/uL Absolute Nucleated RBC x10^3/uL Nucleated RBC % /100WBC PT (9.9-12.6) secs INR (0.8-1.2) Sodium (135-145) mmol/L Potassium (3.5-5.0) mmol/L Chloride (101-111) mmol/L Carbon Dioxide (21-32) mmol/L Anion Gap (6-13) BUN (6-20) mg/dL Creatinine (0.6-1.2) mg/dL Estimated GFR (MDRD) (>89) Glucose (70-100) mg/dL Calcium (8.5-10.3) mg/dL Magnesium (1.7-2.8) mg/dL Total Bilirubin (0.2-1.0) mg/dL AST (10-42) IU/L ALT (10-60) IU/L Alkaline Phosphatase (42-121) IU/L Troponin I High Sens 150.7 H* (2.3-19.7) ng/L B-Natriuretic Peptide 484 H (5-100) pg/mL Total Protein (6.7-8.2) g/dL Albumin (3.2-5.5) g/dL Globulin (2.1-4.2) g/dL Albumin/Globulin Ratio (1.0-2.2) Lipase (22-51) U/L Nasal Adenovirus (PCR) NOT DETECTED Nasal B. parapertussis DNA (PCR) NOT DETECTED Nasal Coronavir 229E PCR NOT DETECTED Nasal Coronavir HKU1 PCR NOT DETECTED Nasal Coronavir NL63 PCR NOT DETECTED Nasal Coronavir OC43 PCR NOT DETECTED Nasal Enterovir/Rhinovir PCR NOT DETECTED Nasal Influenza B PCR NOT DETECTED Nasal Influenza A PCR NOT DETECTED Nasal Parainfluen 1 PCR NOT DETECTED Nasal Parainfluen 2 PCR NOT DETECTED Nasal Parainfluen 3 PCR NOT DETECTED Nasal Parainfluen 4 PCR NOT DETECTED Nasal RSV (PCR) NOT DETECTED Nasal B.pertussis DNA PCR NOT DETECTED Nasal C.pneumoniae (PCR) NOT DETECTED [place] Human Metapneumo PCR NOT DETECTED Nasal M.pneumoniae (PCR) NOT DETECTED Nasal SARS-CoV-2 (PCR) NOT DETECTED 09/21/20 09/21/20 09/21/20 Range/Units 07:05 07:05 07:05 WBC 11.4 H (4.8-10.8) x10^3/uL RBC 4.24 L (4.70-6.10) 10^6/uL Hgb 13.5 L (14.0-18.0) g/dL Hct 40.6 L (42.0-52.0) % MCV 95.8 H (80.0-94.0) fL MCH 31.8 H (27.0-31.0) pg MCHC 33.3 (32.0-36.0) g/dL RDW 13.1 (12.0-15.0) % Plt Count 227 (130-450) 10^3/uL MPV 9.8 (7.4-11.4) fL Neut # (Auto) 10.1 H (1.5-6.6) 10^3/uL Lymph # (Auto) 0.7 L (1.5-3.5) 10^3/uL [place] # (Auto) 0.6 (0.0-1.0) 10^3/uL Eos # (Auto) 0.1 (0.0-0.7) 10^3/uL Baso # (Auto) 0.0 (0.0-0.1) 10^3/uL Absolute Nucleated RBC 0.00 x10^3/uL Nucleated RBC % 0.0 /100WBC PT (9.9-12.6) secs INR (0.8-1.2) Sodium 139 (135-145) mmol/L Potassium 3.6 (3.5-5.0) mmol/L Chloride 102 (101-111) mmol/L Carbon Dioxide 26 (21-32) mmol/L Anion Gap 11.0 (6-13) BUN 30 H (6-20) mg/dL Creatinine 1.7 H (0.6-1.2) mg/dL Estimated GFR (MDRD) 39 L (>89) Glucose 115 H (70-100) mg/dL Calcium 9.5 (8.5-10.3) mg/dL Magnesium 2.4 (1.7-2.8) mg/dL Total Bilirubin 0.7 (0.2-1.0) mg/dL AST 12 (10-42) IU/L ALT 10 (10-60) IU/L Alkaline Phosphatase 78 (42-121) IU/L Troponin I High Sens 55.4 H* (2.3-19.7) ng/L B-Natriuretic Peptide (5-100) pg/mL Total Protein 7.2 (6.7-8.2) g/dL Albumin 4.1 (3.2-5.5) g/dL Globulin 3.1 (2.1-4.2) g/dL Albumin/Globulin Ratio 1.3 (1.0-2.2) Lipase 29 (22-51) U/L Nasal Adenovirus (PCR) Nasal B. parapertussis DNA (PCR) Nasal Coronavir 229E PCR Nasal Coronavir HKU1 PCR Nasal Coronavir NL63 PCR Nasal Coronavir OC43 PCR Nasal Enterovir/Rhinovir PCR Nasal Influenza B PCR Nasal Influenza A PCR Nasal Parainfluen 1 PCR Nasal Parainfluen 2 PCR Nasal Parainfluen 3 PCR Nasal Parainfluen 4 PCR Nasal RSV (PCR) Nasal B.pertussis DNA PCR Nasal C.pneumoniae (PCR) [place] Human Metapneumo PCR Nasal M.pneumoniae (PCR) Nasal SARS-CoV-2 (PCR) Impression and Recommendations - Palliative Care Impression: This is an 85-year-old gentleman with significant cardiac history now presenting with a NSTEMI and A. fib with RVR in the setting of dementia with behavioral di sturbances. The patient has had resolution of his cardiac chest pain and dose adjustments have been made to his cardiac medications by the hospitalist. He is undergoing further diagnostic testing and may require oral anticoagulation upon discharge. Palliative care will continue to provide support, care coordination, pain and symptom management as well as anticipatory guidance. We will continue to follow the patient while he is inpatient and will also resume oversight when the patient returns to his home setting in the adult family home. Recommendations/Counseling Done: 1. A. fib with RVR. Patient previously with a remote history of atrial fibrillation then presented to the emergency department on 09/20 in A. fib with RVR with heart rate in the 140s. Being managed by hospitalist who has adjusted the patient's medication regimen to optimize rate control and this was reviewed at length with the patient's daughter/DPOA, Fatoumata. Discussed with the hospitalist regarding antibiotic coagulation upon discharge with oral therapy and this will be determined after the patient has an echocardiogram however, the patient at the present time does not have significant factors precluding him from oral anticoagulation if needed for stroke reduction but at a future point if the burdens of anticoagulation outweigh the benefit then would consider discontinuation of the patient was on oral anticoagulation and this was reviewed at length with the patient's daughter/LIAT who understanding from verbalization. 2. Chest pain. Resolved due to NSTEMI. 3. Dementia with behavioral disturbance. Patient upon review of medication list demonstrates he is on scheduled hydroxyzine and this is not something that this MOLDER PUNCH is aware of that he is on in his home environment. At this is not effective for anxiety would recommend discontinuation of hydroxyzine and hospitalist to perform. Request that the evening dose of quetiapine to be adjusted to reflect recent dose adjustment from 50 mg to 75 mg nightly. Continue quetiapine 25 mg in the morning. Continue duloxetine 30 mg daily.4.The patient is at risk for sundowning and/or delirium due to his underlying dementia and being in unfamiliar environment. Would reduce frequent checks overnight that would cause disruption to sleep as well as exposures to noxious stimuli in the evenings. The patient is quite talkative and is would likely be redirectable if staff were to be one-on-one with the patient for a period of time. If he does have some evidence of sundowning behavior and is agitated or anxious may give quetiapine 25 mg once daily as needed for the symptoms. Will note his disease modifying agents. Given the patient's advanced age and chronic comorbidities this is progressive. 4. Osteoarthritis, multiple joints involved. Presently controlled. Patient continues on hydrocodone/acetaminophen 5/325 mg 1 tablet 3 times daily scheduled. Continue duloxetine 30 mg daily. Total time spent 30 minutes with greater than 50% of this spent in counseling and coordination of care with patient and hospitalist; discussion of medication regimen with hospitalist and symptom management; examination of patient; review of medical record; and anticipatory guidance. Contacted patient's daughter/DPDAVID Ham,[phone] and provided update regarding hospitalization and symptom management with POC moving forward at the present time with questions answered and addressed. Disclaimer: The chart note was formulated using voice recognition technology and unfortunately sound alike errors may occur.
[2020-09-21] MEDS: SODIUM CHLORIDE FLUSH 0.9% 10 ML SYRINGE IVP SCH (15:34)
[2020-09-21] MEDS ORDERED: ISOSORBIDE MONONITRATE ER 30 MG TABLET PO ONE (16:27)
[2020-09-21] MEDS: TAMSULOSIN 0.4 MG CAPSULE PO SCH (16:38)
[2020-09-21] MEDS: traZODone 50 MG TABLET PO SCH (20:25)
[2020-09-21] MEDS: METOPROLOL SUCCINATE 50 MG TABLET PO SCH (20:25)
[2020-09-21] MEDS: QUEtiapine 25 MG TABLET PO SCH (20:25)
[2020-09-21] MEDS: ISOSORBIDE MONONITRATE ER 30 MG TABLET PO SCH (20:26)
[2020-09-21] MEDS ORDERED: METOPROLOL TARTRATE 25 MG TABLET PO SCH (21:00)
[2020-09-21] MEDS ORDERED: QUEtiapine 25 MG TABLET PO SCH (21:00)
[2020-09-21] MEDS ORDERED: ATORVASTATIN 40 MG TABLET PO SCH (21:00)
[2020-09-22] MEDS: SODIUM CHLORIDE FLUSH 0.9% 10 ML SYRINGE IVP SCH ×3 (00:59→17:43)
[2020-09-22 06:13] LABS: BASOPHILS % (AUTO) 0.3 %; EOSINOPHILS # (AUTO) 0.1 10^3/uL (0.0-0.7); EOSINOPHILS % (AUTO) 1.3 %; HCT - HEMATOCRIT 35.8 % (42.0-52.0); HGB - HEMOGLOBIN 11.7 g/dL (14.0-18.0); LYMPHOCYTES # (AUTO) 1.2 10^3/uL (1.5-3.5); MEAN CORPUSCULAR HEMOGLOBIN 31.6 pg (27.0-31.0); MEAN CORPUSCULAR HGB CONC 32.7 g/dL (32.0-36.0); MEAN CORPUSCULAR VOLUME 96.8 fL (80.0-94.0); MEAN PLATELET VOLUME 9.9 fL (7.4-11.4); MONOCYTES # (AUTO) 0.9 10^3/uL (0.0-1.0); MONOCYTES % (AUTO) 8.6 %; NEUTROPHILS # (AUTO) 7.9 10^3/uL (1.5-6.6); NEUTROPHILS % (AUTO) 77.2 %; PLT - PLATELET COUNT 221 10^3/uL (130-450); RED CELL DISTRIBUTION WIDTH 13.2 % (12.0-15.0); WHITE BLOOD COUNT 10.3 x10^3/uL (4.8-10.8)
[2020-09-22 06:30] LABS: CALCIUM 8.9 mg/dL (8.5-10.3); CREATININE 1.5 mg/dL (0.6-1.2); MAGNESIUM 2.5 mg/dL (1.7-2.8); POTASSIUM 3.5 mmol/L (3.5-5.0)
[2020-09-22 06:33] LABS: CHOL/HDL RATIO 3.3 (<5.0); CHOLESTEROL 157 mg/dL; HDL CHOLESTEROL 47 mg/dL; LDL CHOLESTEROL,CALCULATED 97 mg/dL; LDL/HDL RATIO 2.1 (<3.6); TRIGLYCERIDES 67 mg/dL; VLDL CHOLESTEROL 13 mg/dL
[2020-09-22] MEDS: diltiaZEM 30 MG TABLET PO SCH (06:36)
[2020-09-22] MEDS: HYDROcod/ACETAM 5/325 MG TABLET PO SCH ×2 (06:37→14:17)
[2020-09-22] MEDS: METOPROLOL SUCCINATE 50 MG TABLET PO SCH ×2 (08:18→20:31)
[2020-09-22] MEDS: QUEtiapine 25 MG TABLET PO SCH ×2 (08:19→20:31)
[2020-09-22] MEDS: DOCUSATE SODIUM 250 MG CAPSULE PO SCH (08:23)
[2020-09-22] MEDS: TAMSULOSIN 0.4 MG CAPSULE PO SCH (08:23)
[2020-09-22] MEDS: FUROSEMIDE 20 MG TABLET PO SCH (08:23)
[2020-09-22] MEDS: DULoxetine 30 MG CAPSULE PO SCH (08:23)
[2020-09-22] MEDS: ASPIRIN CHEW 81 MG TABLET PO SCH (08:23)
[2020-09-22] MEDS: ISOSORBIDE MONONITRATE ER 30 MG TABLET PO SCH ×2 (08:49→20:32)
[2020-09-22] MEDS: ENOXAPARIN 80 MG/0.8 ML SYRINGE SUBQ SCH (08:50)
[2020-09-22] MEDS ORDERED: diltiaZEM CD 120 MG CAPSULE PO SCH (12:00)
--- NOTE | 2020-09-22 13:39 | PROVIDER PROGRESS NOTE ---
Assessment/Plan - Problem List (1) NSTEMI (non-ST elevated myocardial infarction) Assessment/Plan: His troponins peaked at 2200. His beta-camilo dose was increased and changed to long-acting. He received 24 hours of Lovenox therapeutic dose. He is on baby aspirin daily and Imdur b.i.d. and this was continued. Lipids were checked and he has fairly good LDL therefore the Lipitor dose can be 20 mg nightly. Echo showed no significant wall motion abnormalities, this therefore this was a "subendocardial NM", and medicines for heart failure are not needed. PT will be ordered to start today, especially to assess heart rate with activity and whether he gets angina with activity. There is no plan for transfer for coronary angiography. If vital signs are stable and no angina, the plan is for discharge back to his [facility] tomorrow, on new medical management. (2) Atrial fibrillation with rapid ventricular response Assessment/Plan: Heart rate is now controlled by changing his metoprolol tartrate to metoprolol succinate and at higher doses, as well as by adding Cardizem 30mg 3 times daily. We will change the Cardizem to CD at noon to spread out his meds. The Echo showed a normal LVEF therefore his CHADS2 score is 1 (age), therefore aspirin will be continued as his stroke prophylaxis med. (3) SERA (acute kidney injury) Assessment/Plan: Creatinine is improved from 1.7 to 1.5 without iv fluids or diuresis. Continue with overall management of good blood pressure control and avoiding nephrotoxins. (4) Dementia with behavioral disturbance Assessment/Plan: Today he is much more bradykinetic which is a result of getting extra quiet a pain yesterday evening when he was confused and possibly starting to . I have instructed the staff that he also responds well to redirection and just sitting" chatting with him". Because of his dementia, a physical therapy consult was requested to evaluate his gait and understanding. The patient has risk of falls according to the physical therapist, and would benefit from standby assist whenever he is walking, to give cues. Will ask social work to determine what level of assistance he gets at his memory care assisted living facility. (5) BPH (benign prostatic hyperplasia) Assessment/Plan: His home meds for this were continued (6) Osteoarthritis Assessment/Plan: His home meds for this were continued (7) Chest pain Qualifiers: Chest pain type: precordial pain Qualified Code(s): R07.2 - Precordial pain Assessment/Plan: Chest pain since being admitted here. - Current Meds Current Meds: Current Medications Generic Name Dose Route Start Last Admin Trade Name Tremaine PRN Reason Stop Dose Admin Hydrocodone Bitart/Acetaminophen 1 tab 09/21/20 14:00 09/22/20 06:37 Hydrocod/Acetam 5/325 Mg Tablet PO Not Given TID KORIN Aspirin 81 mg 09/21/20 10:00 09/22/20 08:23 Aspirin Chew 81 Mg Tablet PO 81 mg DAILY KORIN Administration Docusate Sodium 250 mg 09/22/20 09:00 09/22/20 08:23 Docusate Sodium 250 Mg Capsule PO 250 mg DAILY KORIN Administration Duloxetine HCl 30 mg 09/21/20 11:00 09/22/20 08:23 Duloxetine 30 Mg Capsule PO 30 mg DAILY KORIN Administration Furosemide 20 mg 09/22/20 09:00 09/22/20 08:23 Furosemide 20 Mg Tablet PO 20 mg DAILY KORIN Administration Isosorbide Mononitrate 60 mg 09/21/20 21:00 09/22/20 08:49 Isosorbide Mononitrate Er 30 Mg Tablet PO 60 mg BID KORIN Administration Metoprolol Succinate 50 mg 09/21/20 21:00 09/22/20 08:18 Metoprolol Succinate 50 Mg Tablet PO 50 mg BID KORIN Administration Quetiapine Fumarate 25 mg 09/22/20 09:00 09/22/20 08:19 Quetiapine 25 Mg Tablet PO 25 mg DAILY KORIN Administration Quetiapine Fumarate 75 mg 09/21/20 21:00 09/21/20 20:25 Quetiapine 25 Mg Tablet PO 75 mg QPM KORIN Administration Quetiapine Fumarate 25 mg 09/21/20 13:17 09/22/20 03:11 Quetiapine 25 Mg Tablet PO 25 mg DAILY PRN Administration Agitation Sodium Chloride 10 ml 09/21/20 17:00 09/22/20 08:54 Sodium Chloride Flush 0.9% 10 Ml Syringe IVP 10 ml 0100,0900,1700 KORIN Administration Tamsulosin HCl 0.4 mg 09/21/20 16:24 09/22/20 08:23 Tamsulosin 0.4 Mg Capsule PO 0.4 mg DAILY KORIN Administration Trazodone HCl 50 mg 09/21/20 21:00 09/21/20 20:25 Trazodone 50 Mg Tablet PO 50 mg QPM KORIN Administration - Lab Result Fish Bone Diagrams: 09/22/20 05:47 09/22/20 05:47 - Additional Planning My Orders: My Active Orders 09/21/20 13:17 QUEtiapine [SEROquel] 25 mg PO DAILY PRN 09/21/20 14:00 HYDROcod/ACETAM 5/325 [[place] 5/325] 1 tab PO TID 09/21/20 16:24 Tamsulosin [Flomax] 0.4 mg PO DAILY 09/21/20 17:00 Sodium Chloride Flush 0.9% [Normal Saline Flush 0.9%] 10 ml IVP 0100,0900,1700 09/21/20 21:00 Isosorbide Mononitrate ER [Imdur] 60 mg PO BID Metoprolol Succinate [Toprol Xl] 50 mg PO BID QUEtiapine [SEROquel] 75 mg PO QPM traZODone [Desyrel] 50 mg PO QPM 09/22/20 Evaluate and Treat PT [PT] Routine 09/22/20 09:00 Docusate Sodium 250Mg Capsule [Colace 250Mg Capsule] 250 mg PO DAILY Furosemide [Lasix] 20 mg PO DAILY QUEtiapine [SEROquel] 25 mg PO DAILY 09/22/20 12:00 diltiaZEM CD [Cardizem Cd] 120 mg PO 1200 09/22/20 21:00 Atorvastatin [Lipitor] 20 mg PO QPM 09/23/20 05:00 BMP - BASIC METABOLIC PANEL [CHEM] DAILYLAB CBC - COMP BLD CT W/AUTO DIFF [HEME] DAILYLAB 09/23/20 09:00 Enoxaparin [Lovenox] 40 mg SUBQ DAILY 09/24/20 05:00 BMP - BASIC METABOLIC PANEL [CHEM] DAILYLAB CBC - COMP BLD CT W/AUTO DIFF [HEME] DAILYLAB Subjective - Subjective Patient Reports: Resting Comfortably, No Complaints Nursing Reports: Other (He was demanding to be released home and threatened to throw a full urinal at his nurse if he could not be released. When he was redirected, started talking about living in the [place], he settled down.) Objective Vital Signs: Vital Signs - 24 hr 09/21/20 09/21/20 09/21/20 15:45 16:20 18:07 Temperature 36.5 C Heart Rate [ 57 L 62 Brachial] Respiratory 18 Rate Blood Pressure 187/67 H 190/87 H [Left Brachial artery] Blood Pressure 184/85 H 189/85 H 150/67 H [Right Brachial artery] O2 Saturation 100 09/21/20 09/21/20 09/21/20 20:20 20:57 22:19 Temperature 36.4 C L Heart Rate [ 78 123 H 62 Brachial] Respiratory 18 Rate Blood Pressure 170/67 H [Left Brachial artery] Blood Pressure 168/79 H 169/78 H 146/69 H [Right Brachial artery] O2 Saturation 98 09/22/20 09/22/20 09/22/20 00:00 04:35 07:56 Temperature 36.3 C L 36.3 C L 36.2 C L Heart Rate [ 50 L 57 L 60 Brachial] Respiratory 18 18 18 Rate Blood Pressure 190/102 H [Left Brachial artery] Blood Pressure 137/64 H 160/68 H [Right Brachial artery] O2 Saturation 100 97 100 09/22/20 09/22/20 09:50 11:54 Temperature Heart Rate [ 53 L Brachial] Respiratory 18 Rate Blood Pressure 131/65 H [Left Brachial artery] Blood Pressure 130/74 [Right Brachial artery] O2 Saturation Oxygen O2 Source Room air I&O (Last 24 Hrs): Intake and Output Totals x24h 09/20/20 09/21/20 09/22/20 23:59 23:59 23:59 Intake Total 780 540 Output Total 400 350 Balance 380 190 General: Alert, No acute distress HEENT: Atraumatic, EOMI Neck: Supple, No JVD Neuro: Alert, Disoriented, Non Focal Cardiovascular: No murmurs, Other (Irreg rhythm) Respiratory: No respiratory distress, Breath sounds nml Abdomen: Normal bowel sounds, Soft Extremities: No edema, No tenderness/swelling - Results Results: Laboratory Results WBC 10.3 x10^3/uL (4.8-10.8) 09/22/20 05:47 RBC 3.70 10^6/uL (4.70-6.10) L 09/22/20 05:47 Hgb 11.7 g/dL (14.0-18.0) L 09/22/20 05:47 Hct 35.8 % (42.0-52.0) L 09/22/20 05:47 MCV 96.8 fL (80.0-94.0) H 09/22/20 05:47 MCH 31.6 pg (27.0-31.0) H 09/22/20 05:47 MCHC 32.7 g/dL (32.0-36.0) 09/22/20 05:47 RDW 13.2 % (12.0-15.0) 09/22/20 05:47 Plt Count 221 10^3/uL (130-450) 09/22/20 05:47 MPV 9.9 fL (7.4-11.4) 09/22/20 05:47 Neut # (Auto) 7.9 10^3/uL (1.5-6.6) H 09/22/20 05:47 Lymph # (Auto) 1.2 10^3/uL (1.5-3.5) L 09/22/20 05:47 [place] # (Auto) 0.9 10^3/uL (0.0-1.0) 09/22/20 05:47 Eos # (Auto) 0.1 10^3/uL (0.0-0.7) 09/22/20 05:47 Baso # (Auto) 0.0 10^3/uL (0.0-0.1) 09/22/20 05:47 Absolute Nucleated RBC 0.00 x10^3/uL 09/22/20 05:47 Nucleated RBC % 0.0 /100WBC 09/22/20 05:47 PT 12.0 secs (9.9-12.6) 09/21/20 11:03 INR 1.1 (0.8-1.2) 09/21/20 11:03 Sodium 139 mmol/L (135-145) 09/22/20 05:47 Potassium 3.5 mmol/L (3.5-5.0) 09/22/20 05:47 Chloride 105 mmol/L (101-111) 09/22/20 05:47 Carbon Dioxide 28 mmol/L (21-32) 09/22/20 05:47 Anion Gap 6.0 (6-13) 09/22/20 05:47 BUN 33 mg/dL (6-20) H 09/22/20 05:47 Creatinine 1.5 mg/dL (0.6-1.2) H 09/22/20 05:47 Estimated GFR (MDRD) 45 (>89) L 09/22/20 05:47 Glucose 100 mg/dL (70-100) 09/22/20 05:47 Calcium 8.9 mg/dL (8.5-10.3) 09/22/20 05:47 Magnesium 2.5 mg/dL (1.7-2.8) 09/22/20 05:47 Total Bilirubin 0.7 mg/dL (0.2-1.0) 09/21/20 07:05 AST 12 IU/L (10-42) 09/21/20 07:05 ALT 10 IU/L (10-60) 09/21/20 07:05 Alkaline Phosphatase 78 IU/L (42-121) 09/21/20 07:05 Troponin I High Sens 1651.0 ng/L (2.3-19.7) H* 09/22/20 05:47 B-Natriuretic Peptide 788 pg/mL (5-100) H 09/21/20 11:03 Total Protein 7.2 g/dL (6.7-8.2) 09/21/20 07:05 Albumin 4.1 g/dL (3.2-5.5) 09/21/20 07:05 Globulin 3.1 g/dL (2.1-4.2) 09/21/20 07:05 Albumin/Globulin Ratio 1.3 (1.0-2.2) 09/21/20 07:05 Triglycerides 67 mg/dL (-149) 09/22/20 05:47 Cholesterol 157 mg/dL (-199) 09/22/20 05:47 LDL Cholesterol, Calc 97 mg/dL (-129) 09/22/20 05:47 VLDL Cholesterol 13 mg/dL 09/22/20 05:47 HDL Cholesterol 47 mg/dL (60-) L 09/22/20 05:47 LDL/HDL Ratio 2.1 (<3.6) 09/22/20 05:47 Cholesterol/HDL Ratio 3.3 (<5.0) 09/22/20 05:47 Lipase 29 U/L (22-51) 09/21/20 07:05 Nasal Adenovirus (PCR) NOT DETECTED 09/21/20 09:40 Nasal B. parapertussis DNA (PCR) NOT DETECTED 09/21/20 09:40 Nasal Coronavir 229E PCR NOT DETECTED 09/21/20 09:40 Nasal Coronavir HKU1 PCR NOT DETECTED 09/21/20 09:40 Nasal Coronavir NL63 PCR NOT DETECTED 09/21/20 09:40 Nasal Coronavir OC43 PCR NOT DETECTED 09/21/20 09:40 Nasal Enterovir/Rhinovir PCR NOT DETECTED 09/21/20 09:40 Nasal Influenza B PCR NOT DETECTED 09/21/20 09:40 Nasal Influenza A PCR NOT DETECTED 09/21/20 09:40 Nasal Parainfluen 1 PCR NOT DETECTED 09/21/20 09:40 Nasal Parainfluen 2 PCR NOT DETECTED 09/21/20 09:40 Nasal Parainfluen 3 PCR NOT DETECTED 09/21/20 09:40 Nasal Parainfluen 4 PCR NOT DETECTED 09/21/20 09:40 Nasal RSV (PCR) NOT DETECTED 09/21/20 09:40 Nasal B.pertussis DNA PCR NOT DETECTED 09/21/20 09:40 Nasal C.pneumoniae (PCR) NOT DETECTED 09/21/20 09:40 [place] Human Metapneumo PCR NOT DETECTED 09/21/20 09:40 Nasal M.pneumoniae (PCR) NOT DETECTED 09/21/20 09:40 Nasal SARS-CoV-2 (PCR) NOT DETECTED 09/21/20 09:40 - Procedures Procedures: Procedures REPLACEMENT OF LEFT LENS WITH SYNTH SUB, PERC APPROACH (01/10/16) REPLACEMENT OF RIGHT LENS WITH SYNTH SUB, PERC APPROACH (09/13/15)
[2020-09-22] MEDS: traZODone 50 MG TABLET PO SCH (20:31)
[2020-09-22] MEDS ORDERED: ATORVASTATIN 40 MG TABLET PO SCH (21:00)
[2020-09-23] MEDS: SODIUM CHLORIDE FLUSH 0.9% 10 ML SYRINGE IVP SCH ×2 (03:24→08:03)
[2020-09-23 06:18] LABS: BASOPHILS % (AUTO) 0.3 %; EOSINOPHILS # (AUTO) 0.2 10^3/uL (0.0-0.7); EOSINOPHILS % (AUTO) 2.1 %; LYMPHOCYTES # (AUTO) 0.9 10^3/uL (1.5-3.5); LYMPHOCYTES % (AUTO) 8.9 %; MEAN CORPUSCULAR HEMOGLOBIN 31.6 pg (27.0-31.0); MEAN CORPUSCULAR HGB CONC 32.5 g/dL (32.0-36.0); MEAN CORPUSCULAR VOLUME 97.3 fL (80.0-94.0); MEAN PLATELET VOLUME 9.7 fL (7.4-11.4); MONOCYTES # (AUTO) 0.7 10^3/uL (0.0-1.0); MONOCYTES % (AUTO) 7.2 %; NEUTROPHILS # (AUTO) 8.4 10^3/uL (1.5-6.6); NEUTROPHILS % (AUTO) 80.8 %; PLT - PLATELET COUNT 232 10^3/uL (130-450); RED BLOOD COUNT 4.11 10^6/uL (4.70-6.10); RED CELL DISTRIBUTION WIDTH 13.3 % (12.0-15.0); WHITE BLOOD COUNT 10.3 x10^3/uL (4.8-10.8)
[2020-09-23 06:31] LABS: CALCIUM 9.5 mg/dL (8.5-10.3); CREATININE 1.6 mg/dL (0.6-1.2); POTASSIUM 4.1 mmol/L (3.5-5.0)
[2020-09-23] MEDS: TAMSULOSIN 0.4 MG CAPSULE PO SCH (07:59)
[2020-09-23] MEDS: DULoxetine 30 MG CAPSULE PO SCH (07:59)
[2020-09-23] MEDS: ASPIRIN CHEW 81 MG TABLET PO SCH (07:59)
[2020-09-23] MEDS: DOCUSATE SODIUM 250 MG CAPSULE PO SCH (07:59)
[2020-09-23] MEDS: ISOSORBIDE MONONITRATE ER 30 MG TABLET PO SCH (08:00)
[2020-09-23] MEDS: FUROSEMIDE 20 MG TABLET PO SCH (08:00)
[2020-09-23] MEDS: QUEtiapine 25 MG TABLET PO SCH (08:01)
[2020-09-23] MEDS: METOPROLOL SUCCINATE 50 MG TABLET PO SCH (08:02)
[2020-09-23] MEDS ORDERED: ENOXAPARIN 40 MG/0.4 ML SYRINGE SUBQ SCH (09:00)
--- NOTE | 2020-09-23 10:50 | Discharge Plan ---
"Discharge Plan for SNF / [facility] - Discharge Plan And Transition Orders Problem Reviewed?: Yes Disposition: 03 SNF DC/Xfer Condition: Stable Allergies and Adverse Reactions: Allergies Allergy/AdvReac Type Severity Reaction Status Date / Time hydrochlorothiazide AdvReac Unknown Verified 09/21/20 06:34 lisinopril AdvReac Unknown Verified 09/21/20 06:34 rosuvastatin calcium * AdvReac Unknown Verified 09/21/20 06:34 [From Crestor] Health Concerns: Patient was admitted with shortness of breath, A. fib with rapid rate, ruled in for an acute MN, medications were adjusted for rate control and for treating the MN and he has stabilized and is returning to his memory care [facility]. Dementia was noted, and there were mild behavioral disturbances. His Palliative Care provider, Radha Carter NP, saw him while he was here. Plan of Treatment: As above. Care Goals: Improvement in symptoms and stabilization are the goals. Assessment: Instructions provided for [facility]. - SNF / [facility] Transition Orders Admit to (Facility): [facility] Under the care of (Name): TATIANA Ruiz (PCP) Discharge Diagnosis: (1) NSTEMI (non-ST elevated myocardial infarction) (2) Atrial fibrillation with rapid ventricular response (3) HTN (4) SERA (acute kidney injury) (5) Dementia with behavioral disturbance (6) BPH (benign prostatic hyperplasia) (7) Osteoarthritis Medicare Certification Statement: I certify that Post Hospital assisted care is medically necessary on a continuing basis for any of the conditions for which she/he is receiving care during hospitalization. Notify PCP of admission and forward orders to primary provider for signature. Weight on admission and: Weekly Call PCP immediately if weight increases by: 4 kg Other Notification Orders: Call PCP immediately if patient develops dyspnea, chest pain/tightness or edema. House Bowel Program: Yes Additional Bowel Program Orders: If no BM after 2 days, nurse may give M.O.M. 30ml PO PRN and/or ducolax Supp 1 TN and/or GABRIELE 250mg P.O., and/or senna 1-2 tabs PO. On day 3 nurse may give repeat above order until residents constipation is resolved. Annual Influenza Vaccine (between Dec 05 and July 04): Yes Two-step PPD per [facility] [phone] or approved exception documents: Yes Lab Tests or X-ray Orders: BMP on ThuSeptember 28, 2020 to check BUN/creat Medication Orders: PLEASE REFER TO THE DISCHARGE MEDICATION LIST. Insulin Orders?: No - Medications New Prescriptions: diltiaZEM [Cardizem] 30 mg PO 1200 #30 tablet Atorvastatin [Lipitor] 20 mg PO QPM #30 tablet Metoprolol Succinate [Toprol Xl] 50 mg PO BID #60 tablet - Diet Type: No added salt Texture: Regular Liquids: Thin May have monthly special meal: Yes - Therapies | Activity Rehabilitation Potential: Maintain present ADL Functional Activity: Activity as Tolerated Assistance Devices: Walker Follow Up: See PCP in 1-2 weeks for a hospital follow-up appointment."
--- NOTE | 2020-09-23 10:56 | DISCHARGE SUMMARY ---
Discharge Summary Admit Date: 09/21/20 Discharge Date: 09/23/20 Discharging Provider: Dr Kimberly Suh Primary Care Provider: TATIANA Ruiz Condition at Discharge: Stable Discharge Disposition: 03 SNF DC/Xfer - HPI History of Present Illness: This is an 86-year-old WM who lives in assisted living facility [facility] because of dementia with behavioral disturbances. He is followed by Palliative Care provider Radha Carter NP. Just 2 days ago there was a behavioral problem where he exited the assisted living screaming and cussing into the night air but did return on his own volition, and the next day apologized for his behavior. He has insomnia. There is a remote history of A. fib, CAD with CABG, HTN, arthritis, BPH. He came to the ER for c/o chest pain with activity during the last 2 days and then resting chest pain today. This was corroborated by staff at [facility] and by his daughter, providing the history to the ED provider, but with no further details regarding those symptoms. The patient only points to his sternum, but gives me no details whatsoever. In the ED he was found to be in A. fib with RVR, with heart rates in the 140s. He was treated with metoprolol 5 mg IV x1 and heart rate decreased to the 90-110 range. His troponins have been cycled and are showing acute NSTEMI, with first troponin 56, next one going up to 150. The patient is being admitted to the Hospitalist team for treatment of acute NSTEMI and A. fib with RVR. The daughter was able to tell the ED provider that no transfer for coronary angio is planned. His POLST indicates DNR and Comfort Focused treatment. - HOSPITAL COURSE Hospital Course: (1) NSTEMI (non-ST elevated myocardial infarction) Serial troponins were measured and troponin peaked at 2224. The EKG revealed lateral ST-T abnormalities. The Echo showed a preserved LVEF of 60% (suggesting a non-transmural WA). He was treated with 1 day of Lovenox theraputic dose, then changed to prophylactic dose, kept on Aspirin, B-camilo (with dose adjusted), and statin. He ambulated with PT and had no angina. He is not a candidate for outpatient cardiac rehab due to his dementia with behavioral disturbances. (2) Atrial fibrillation with rapid ventricular response His heart rate was controlled by changing his short acting Metoprolol Tartrate to long acting Metoprolol Succinate and increasing the dose, and by changing Amlodipne to new Cardizem daily. The Echo showed a normal LVEF therefore his CHADS2 score is 1 (age>79), therefore aspirin will be continued as his stroke pr ophylaxis med. (3) HTN BP was under good control on his new combination of meds. (4) SERA (acute kidney injury) His BUN/creat was elevated throughout hospitalization at 30-33/1.5-1.7. He usually runs a creat of 0.9. Etiology unclear, possibly from using NSAIDs (?Voltaren) and ARB (losartan). Perhaps he had renal hypoperfusion due to his rapid heart rate in A. fib. We stopped the Voltaren and avoided nephrotoxins. We continued his daily oral Lasix since he was euvolemic. (5) Dementia with behavioral disturbance He had confusion, but was able to be redirected by conversing with him. We kept him on Quietepine and his usual psych meds. He was seen by his Palliative Care provider, Zoya Carter NP, while here. (6) BPH (benign prostatic hyperplasia) He was kept on his meds for this. (7) Osteoarthritis Oral NSAIDs were stopped. He did get benefit from a Lidocaine patch. - ALLERGIES Allergies/Adverse Reactions: Allergies Allergy/AdvReac Type Severity Reaction Status Date / Time hydrochlorothiazide AdvReac Unknown Verified 09/21/20 06:34 lisinopril AdvReac Unknown Verified 09/21/20 06:34 rosuvastatin calcium * AdvReac Unknown Verified 09/21/20 06:34 [From [facility]] - MEDICATIONS Home Medications: Ambulatory Orders Medication Instructions Recorded Confirmed Losartan Potassium 50 mg PO BID 09/13/15 09/21/20 Aspirin 81 mg PO DAILY 06/27/19 09/21/20 Calcium Carbonate [Tums (Calcium 1,000 mg PO BID 06/27/19 04/16/20 Carbonate 500mg)] Diclofenac Sodium [Voltaren] TOP DAILY PRN 06/27/19 06/27/19 Furosemide [Lasix] 20 mg PO DAILY 06/27/19 09/21/20 Nitroglycerin 0.4 mg SL DAILY PRN 06/27/19 09/21/20 Acetaminophen [Tylenol] 650 mg PO Q4HR PRN MDD NTE 3g per 02/01/20 04/16/20 24hours Magnesium Hydroxide [Milk of 30 ml PO DAILY PRN MDD If no BM in 02/01/20 04/16/20 Magnesia] 3 days QUEtiapine [SEROquel] 50 mg PO QPM 02/01/20 09/21/20 Tamsulosin HCl [Flomax] 0.4 mg PO DAILY 02/01/20 09/21/20 DULoxetine [Cymbalta] 30 mg PO DAILY 03/07/20 09/21/20 QUEtiapine [SEROquel] 25 mg PO .MORNING 03/07/20 09/21/20 HYDROcod/ACETAM 5/325 [[place] 5/325] 1 tab PO TID 04/04/20 09/21/20 Hydrocodone/Acetaminophen [[place] 1 tab PO Q6HR PRN 04/16/20 09/21/20 5-325 Tablet] traZODone [Desyrel] 50 mg PO QPM 05/03/20 09/21/20 Docusate Sodium [Dss] 1 cap PO DAILY 07/11/20 09/21/20 Senna [Senokot] 1 tab PO DAILY PRN 07/11/20 07/11/20 Isosorbide Mononitrate ER [Imdur] 60 mg PO BID 09/21/20 09/21/20 hydrOXYzine HCL [Hydroxyzine HCl] 25 mg PO QID 09/21/20 09/21/20 Atorvastatin [Lipitor] 20 mg PO QPM #30 tablet 09/23/20 Metoprolol Succinate [Toprol Xl] 50 mg PO BID #60 tablet 09/23/20 diltiaZEM [Cardizem] 30 mg PO 1200 #30 tablet 09/23/20 - PHYSICAL EXAM AT DISCHARGE General Appearance: positive: No acute distress, Alert Eyes Bilateral: positive: Normal inspection, EOMI ENT: positive: No signs of dehydration Neck: positive: Nml inspection, No JVD Respiratory: positive: No respiratory distress, Breath sounds nml Cardiovascular: positive: No murmur, Irregularly irregular Abdomen: positive: Non-tender, Nml bowel sounds, No distention Skin: positive: Warm, Dry Extremities: positive: Non-tender, No pedal edema Neurologic/Psychiatric: positive: Motor nml, Disoriented to place, Disoriented to time - LABS Result Diagrams: 09/23/20 06:03 09/23/20 06:03 - DIAGNOSTIC IMAGING Diagnostic Imaging Results: Final report reviewed - FOLLOW UP Follow Up: See PCP in 7-10 days for a hospital follow-up visit. - TIME SPENT Time Spent in Discharge (Minutes): 45
[2020-09-23] MEDS ORDERED: LOSARTAN 50 MG TABLET PO SCH (12:00)
[2020-09-23 12:54] VITALS: BP 140/61
== END 2020-09-23 13:18 | DRG 281 ==
LOC: EDUNIT# → ED 06:25 → MS2 09:30
PROVIDERS: ADMIT Internal Medicine; ATTEND Internal Medicine
DX: I21.4 Non-ST elevation (NSTEMI) myocardial infarction (principal); R07.2 Precordial pain; R77.8 Other specified abnormalities of plasma proteins; N17.9 Acute kidney failure, unspecified; F03.91 Unspecified dementia, unspecified severity, with behavioral disturbance; I50.9 Heart failure, unspecified; I11.0 Hypertensive heart disease with heart failure; I25.2 Old myocardial infarction; Z95.1 Presence of aortocoronary bypass graft; Z20.822 Contact with and (suspected) exposure to COVID-19; I48.91 Unspecified atrial fibrillation; I25.10 Atherosclerotic heart disease of native coronary artery without angina pectoris; N40.0 Benign prostatic hyperplasia without lower urinary tract symptoms; Z79.82 Long term (current) use of aspirin; Z79.899 Other long term (current) drug therapy; Z66 Do not resuscitate; Z51.5 Encounter for palliative care; Z87.891 Personal history of nicotine dependence; M89.49 Other hypertrophic osteoarthropathy, multiple sites
CPT/HCPCS: 36415; 71045; 80048; 80053; 80061; 83690; 83735; 83880; 84484; 85025; 85610; 87631; 93005; 93306; 96374; 97162; 99232; 99284; 99285; A9270; J1650; 0202U; 83721

== ENCOUNTER 2020-09-26 09:39 | Outpatient (CLI) | payer MEDICARE ==
[2020-09-26 10:36] LABS: CALCIUM 9.2 mg/dL (8.5-10.3); CREATININE 1.8 mg/dL (0.6-1.2); POTASSIUM 3.9 mmol/L (3.5-5.0)
--- NOTE | 2020-09-26 13:46 | CONSULTATION NOTE ---
Palliative Care Follow Up - Referral Referring Provider: LESLEY Singh Time of Visit: 3762-7401 Referral setting: Home Referral Reason: F/u hospitalization/SERA/Dementia - Information Sources Records reviewed: Previous records reviewed History/Review of Systems obtained from: Patient, Caregiver (Yun) Exam limitations: Clinical condition (Advanced Dementia) - History of Present Illness Update Brief HPI Update: This is an 85-year-old gentleman who is seen and evaluated today at [facility] due to recent admission for NSTEMI in the setting of atrial fibrillation with RVR, SERA and dementia with behavioral disturbance. The patient was admitted at [facility] from 09/21 through 09/23/2020 After he presented to the emergency department for increased chest pain and was found to have an acute and a NSTEMI with elevated troponin upwards to 733 performed on 09/21 and an elevated BNP of 788. He was also found to be in A. fib with RVR with a heart rate in the 140s. He was brought into IV metoprolol administration. He then was admitted for inpatient monitoring. Adjustments were made to the patient's medication with change of metoprolol to 50 mg twice daily, initiation of Dital Robin 30 mg daily and addition of atorvastatin. He had an echocardiogram performed which demonstrated a normal ovary CHADS2 score of 1 and therefore aspirin was continued as his stroke prophylaxis medication in the setting of atrial fibrillation. His BUN and creatinine were also elevated at 1.5-1.7 with the usual creatinine running 0.9 to 1.1. It appears that his losartan and oral Lasix was continued during his hospitalization continued upon discharge. Upon review of the patient's MAR at the [facility] there is a discrepancy with the MAR versus his M door prescription. The bottle and Imdur states 60 mg twice daily but on MAR it is listed as 30 mg daily this has been rectified especially in light of the patient's recent cardiac event would benefit from appropriate dosing of Imdur. Prior to the patient's admission to the hospital he had had an episode of inc reased agitation and his quetiapine was increased from 50 mg to 75 mg at bedtime with continued quetiapine 25 mg in the morning. However, upon review of MAR this is not reflected in dose has been adjusted. The patient is seen out of bed in his wheelchair having just completed breakfast. He consumed all of his breakfast and denies any angina, numbness or tingling of his upper extremities or chest pain. No evidence of acute distress. Past Medical History: Patient has a past medical history of congestive heart failure ejection fraction 60-65%(09/21/2020), hypertension, coronary artery disease, [place] x2 (last September 2020), atrial fibrillation, dementia, subdural hematoma with evacuation age 17, BPH, anxiety, osteoarthritis, insomnia, status post CABG. Social History - Living Situation Living arrangement: Adult family home Living Situation: Alone (has caregivers there) Support System: Patient is from his . The patient and his had 6 children together. The patient's daughter, Fatoumata is his DPOA with contact phone [phone]. The patient was born in [place]. He resides at [facility]. THe patient's daughter, Fatoumata picked up the patient upon discharge and both the patient and Fatoumata report that they had a leigh ann car ride together. Fatoumata felt that the car ride provided some healing on her end and the patient felt that it was a wonderful Father's Day gift to see Fatoumata. Medications/Allergies - Medications Home Medications: Ambulatory Orders Medication Instructions Recorded Confirmed Losartan Potassium 50 mg PO DAILY 09/13/15 09/28/20 Aspirin 81 mg PO DAILY 06/27/19 09/28/20 Diclofenac Sodium [Voltaren] TOP DAILY PRN 06/27/19 06/27/19 Furosemide [Lasix] 20 mg PO DAILY 06/27/19 09/28/20 Nitroglycerin 0.4 mg SL DAILY PRN 06/27/19 09/28/20 Acetaminophen [Tylenol] 650 mg PO Q4HR PRN MDD NTE 3g per 02/01/20 04/16/20 24hours Magnesium Hydroxide [Milk of 30 ml PO DAILY PRN MDD If no BM in 02/01/20 09/28/20 Magnesia] 3 days QUEtiapine [SEROquel] 75 mg PO QPM 02/01/20 09/28/20 Tamsulosin HCl [Flomax] 0.4 mg PO DAILY 02/01/20 09/28/20 DULoxetine [Cymbalta] 30 mg PO DAILY 03/07/20 09/28/20 QUEtiapine [SEROquel] 25 mg PO .MORNING 03/07/20 09/28/20 HYDROcod/ACETAM 5/325 [[place] 5/325] 1 tab PO TID 04/04/20 09/28/20 Hydrocodone/Acetaminophen [[place] 1 tab PO Q6HR PRN 04/16/20 09/28/20 5-325 Tablet] traZODone [Desyrel] 50 mg PO QPM 05/03/20 09/28/20 Docusate Sodium [Dss] 1 cap PO DAILY 07/11/20 09/28/20 Senna [Senokot] 1 tab PO DAILY PRN 07/11/20 09/28/20 Isosorbide Mononitrate ER [Imdur] 60 mg PO BID 09/21/20 09/28/20 Atorvastatin [Lipitor] 20 mg PO QPM #30 tablet 09/23/20 09/28/20 Metoprolol Succinate [Toprol Xl] 50 mg PO BID #60 tablet 09/23/20 09/28/20 diltiaZEM [Cardizem] 30 mg PO 1200 #30 tablet 09/23/20 09/28/20 - Allergies Allergies/Adverse Reactions: Allergies Allergy/AdvReac Type Severity Reaction Status Date / Time hydrochlorothiazide AdvReac Unknown Verified 09/21/20 06:34 lisinopril AdvReac Unknown Verified 09/21/20 06:34 rosuvastatin calcium * AdvReac Unknown Verified 09/21/20 06:34 [From [facility]] Review of Systems - Constitutional Constitutional: reports: Weight loss (weight 182.6lb 09/01/2020; weight 187.1lb 08/05/2020; weight 195lb on 07/08/2020). denies: Fever, Poor appetite - Eyes Eyes: denies: Irritation - Ears, Nose & Throat Ears, Nose & Throat: reports: Hearing loss - Cardiovascular Cardiovascular: denies: Palpitations, Chest pain, Edema - Respiratory Respiratory: denies: Cough - Gastrointestinal Gastrointestinal: reports: Good appetite. denies: Constipation, Nausea - Genitourinary Genitourinary: denies: Dysuria - Musculoskeletal Musculoskeletal: reports: Stiffness, Limited range of motion (right shoulder), Assistive devices - Integumentary Integumentary: reports: Dryness - Neurological Neurological: reports: General weakness, Memory problems - Psychiatric Psychiatric: reports: Depression, Anxiety, Behavior disturbances - Hematologic/Lymphatic Hematologic/Lymph: reports: Other (No history of recurrent infections) - All Other Systems All Other Systems: reports: Reviewed and negative (ROS supplemented by Yun sanhces as patient is a poor historian due to dementia.) Physical Exam - Vital Signs Temperature: 36.6 C Pulse Rate: 77 O2 Saturation: 95 (on RA) Blood Pressure: 132/58 (left arm) - Physical Exam General Appearance: positive: No acute distress, Alert, Other (OOB in wheelchair) Eyes Bilateral: positive: Normal inspection ENT: positive: No signs of dehydration, Other (b/l temporal wasting, missing lower teeth) Neck: positive: Trachea midline Cardiovascular: positive: Irregularly irregular, Systolic murmur Respiratory: positive: No respiratory distress, Breath sounds nml Abdomen: positive: Non-tender, Soft, Nml bowel sounds Skin: positive: Dryness Extremities: positive: No pedal edema Neurologic/Psychiatric: positive: Mood/affect nml, Disoriented to place, Other (Engaged and pleasantly confused without s/s of agitation.) Palliative Care - POLST Patient has POLST: Yes POLST Status: DNR, Comfort Measures Pain: No pain - Palliative Care Discussion: Patient has sustained a non-STEMI in the setting of atrial fibrillation RVR and medication adjustments have been made and the patient has been medically optimized. Upon return to the adult family home he is not having any cardiac complaints. He is at high risk for subsequent sequelae given his complex cardiac history however, The patient's family and DPOA/daughter, Fatoumata wish to focus on comfort measures. Adult family home. Corrections have been made to the patient's MAR to reflect appropriate medication dosages and will continue to monitor closely the patient's blood pressure and symptoms. The patient himself is feeling well and is a good. This is especially in light of his recent car trip with his daughter, Fatoumata who has a complex relationship with. He was a healing event for both parties. Results - Lab Results Lab results reviewed: Yes Fish Bones: 09/26/20 09:40 Lab and Imaging Results: Lab Results x24hrs 09/26/20 Range/Units 09:40 Sodium 134 L (135-145) mmol/L Potassium 3.9 (3.5-5.0) mmol/L Chloride 101 (101-111) mmol/L Carbon Dioxide 20 L (21-32) mmol/L Anion Gap 13.0 (6-13) BUN 31 H (6-20) mg/dL Creatinine 1.8 H (0.6-1.2) mg/dL Estimated GFR (MDRD) 36 L (>89) Glucose 152 H (70-100) mg/dL Calcium 9.2 (8.5-10.3) mg/dL Impression and Recommendations - Palliative Care Impression: This is an 85-year-old gentleman with significant cardiac history with recent non-STEMI and A. fib with RVR in the setting of dementia with behavioral disturbances seen in hospital follow-up today. He has had resolution of his cardiac chest. He has no complaints of angina on presentation today. Adjustments were made to the patient's MAR to reflect desired medication dosages. Goal remains on comfort measures and quality of life. Palliative care will continue to provide support, care coordination, pain and symptom management as well as anticipatory guidance. Recommendations/Counseling Done: 1. Non-STEMI. Hospitalized at [facility] 09/21-09/23. Has a history of myocardial infarction in the past. Is a high risk for subsequent sequelae. Continue metoprolol 50 mg twice daily, diltiazem 30 mg daily, Imdur 60 mg twice daily and Lasix 20 mg daily. Continue aspirin 81 mg daily for cardiac prophylaxis. No reports of cardiac complaints. 2. Atrial fibrillation. Recent surgery for management with RVR. Pleasantly rate controlled. Continue metoprolol 50mg BID and cardizem 30mg daily for rate control. Continue ASA 81mg daily for CVA prophylaxis. Continue to monitor. 3. Acute Kidney Injury. In the setting of recent non-STEMI as well as possible renal hypoperfusion due to his recent A. fib with RVR. Baseline creatinine 0.9- 1.1. BMP obtained today with creatinine 1.8 which is in range to his recent hospitalization. Decrease losartan to 50 mg daily to reduce potential insult to the injuries and reevaluate BMP in approximately 1 week. This juan c avoidance of nephrotoxins.. 4. Dementia with behavioral disturbances. Orders placed again to reflect recent dose change of quetiapine from 50 mg to 75 mg nightly. Continue quetiapine 25 mg in the morning. Continue duloxetine 30 mg daily. The patient appears to have settled back down into his home environment. No reports of agitation or insomnia since return to the adult family home. Given the patient's advanced age and chronic comorbidities a gradual decline is expected. 5. Advanced care planning. Patient has POLST in place as DN AR with comfort measures. The patient's daughter/DPOA wishes to focus on medical optimization and comfort as much as possible in the home setting. Discussed at length recent hospitalization with the patient's daughter/DPOA and risk for subsequent sequelae given the patient's complex cardiac history with questions answered and addressed. Supportive listening provided. Total time spent 40 minutes with greater than 50% of this spent in counseling and coordination of care with patient Yun schultz; review of medications; labdraw; examination of patient; review of pain and symptom management and anticipatory guidance. Contacted the patient's daughter/DPOAFatoumata and updated regarding POC with questions answered and addressed at length and in agreement with dose reduction of losartan. Supportive listening provided. Disclaimer: The chart note was formulated using voice recognition technology and unfortunately sound alike errors may occur.
== END 2020-09-26 09:40 | disposition home or self-care (01) ==
LOC: PC 09:39
PROVIDERS: ATTEND Nurse Practitioner Family
DX: Z51.5 Encounter for palliative care (principal); I21.4 Non-ST elevation (NSTEMI) myocardial infarction; I50.9 Heart failure, unspecified; I11.0 Hypertensive heart disease with heart failure; I25.119 Atherosclerotic heart disease of native coronary artery with unspecified angina pectoris; I25.2 Old myocardial infarction; I48.91 Unspecified atrial fibrillation; N17.9 Acute kidney failure, unspecified; F03.91 Unspecified dementia, unspecified severity, with behavioral disturbance; Z66 Do not resuscitate
CPT/HCPCS: 36415; 80048; 99349

== ENCOUNTER 2020-10-03 12:15 | Outpatient (CLI) | payer MEDICARE ==
--- NOTE | 2020-10-03 15:24 | CONSULTATION NOTE ---
Palliative Care Follow Up - Referral Referring Provider: LESLEY Singh Time of Visit: 0163-3142 Referral setting: Adult Family Home Referral Reason: SERA/HTN - Information Sources Records reviewed: Previous records reviewed History/Review of Systems obtained from: Patient, Caregiver (Cathrynta) Exam limitations: Clinical condition (Advanced Dementia) - History of Present Illness Update Brief HPI Update: This is an 85-year-old gentleman who is seen and evaluated today at [facility] for follow-up of SERA and HTN. The patient was admitted at [facility] from 09/21 through 09/23/2020 After he presented to the emergency department for increased chest pain and was found to have an acute and a NSTEMI with elevated troponin upwards to 733 performed on 09/21 and an elevated BNP of 788. He was also found to be in A. fib with RVR with a heart rate in the 140s. He was brought into IV metoprolol administration. He then was admitted for inpatient monitoring. Adjustments were made to the patient's medication with change of metoprolol to 50 mg twice daily, initiation of Diltazem 30 mg daily and addition of atorvastatin. He had an echocardiogram performed which demonstrated a normal ovary CHADS2 score of 1 and therefore aspirin was continued as his stroke prophylaxis medication in the setting of atrial fibrillation. His BUN and creatinine were also elevated at 1.5-1.7 with the usual creatinine running 0.9 to 1.1. It appears that his losartan and oral Lasix was continued during his hospitalization continued upon discharge. Last week the patient had a BMP obtaiend that demonstrated continued elevation of Creatinine at 1.8 and GFR of 31. His losartan dose was reduced from 100mg to 50mg daily. He denies c/o chest pain. No evidence of LE edema. Labwork was obtained today with improvement of Creatine to 1.6 and GFR 41. He is maintaining oral intake of liquids despite going outside frequently even in the heat. No change in urinary output reported. His caregiver reports that he is waking up around midnight after taking a long mid-day nap. The patient's quetiapine was recently increased last week from 50mg to 75mg with some minor improvements. The patient is seen resting on the edge of his bed in his room. Well groomed and NAD. Past Medical History: Patient has a past medical history of congestive heart failure ejection fraction 60-65%(09/21/2020), hypertension, coronary artery disease, [place] x2 (last September 2020), atrial fibrillation, dementia, subdural hematoma with evacuation age 17, BPH, anxiety, osteoarthritis, insomnia, status post CABG. Social History - Living Situation Living arrangement: Adult family home Living Situation: Alone (has caregivers there) Support System: Patient is from his . The patient and his had 6 children together. The patient's daughter, Fatoumata is his DPOA with contact phone [phone]. The patient was born in [place]. He resides at [facility] Adult family home. Medications/Allergies - Medications Home Medications: Ambulatory Orders Medication Instructions Recorded Confirmed Losartan Potassium 50 mg PO DAILY 09/13/15 09/28/20 Aspirin 81 mg PO DAILY 06/27/19 09/28/20 Diclofenac Sodium [Voltaren] TOP DAILY PRN 06/27/19 06/27/19 Furosemide [Lasix] 20 mg PO DAILY 06/27/19 09/28/20 Nitroglycerin 0.4 mg SL DAILY PRN 06/27/19 09/28/20 Acetaminophen [Tylenol] 650 mg PO Q4HR PRN MDD NTE 3g per 02/01/20 04/16/20 24hours Magnesium Hydroxide [Milk of 30 ml PO DAILY PRN MDD If no BM in 02/01/20 09/28/20 Magnesia] 3 days QUEtiapine [SEROquel] 75 mg PO QPM 02/01/20 09/28/20 Tamsulosin HCl [Flomax] 0.4 mg PO DAILY 02/01/20 09/28/20 DULoxetine [Cymbalta] 30 mg PO DAILY 03/07/20 09/28/20 QUEtiapine [SEROquel] 25 mg PO .MORNING 03/07/20 09/28/20 HYDROcod/ACETAM 5/325 [[place] 5/325] 1 tab PO TID 04/04/20 09/28/20 Hydrocodone/Acetaminophen [[place] 1 tab PO Q6HR PRN 04/16/20 09/28/20 5-325 Tablet] traZODone [Desyrel] 50 mg PO QPM 05/03/20 09/28/20 Docusate Sodium [Dss] 1 cap PO DAILY 07/11/20 09/28/20 Senna [Senokot] 1 tab PO DAILY PRN 07/11/20 09/28/20 Isosorbide Mononitrate ER [Imdur] 60 mg PO BID 09/21/20 09/28/20 Atorvastatin [Lipitor] 20 mg PO QPM #30 tablet 09/23/20 09/28/20 Metoprolol Succinate [Toprol Xl] 50 mg PO BID #60 tablet 09/23/20 09/28/20 diltiaZEM [Cardizem] 30 mg PO 1200 #30 tablet 09/23/20 09/28/20 - Allergies Allergies/Adverse Reactions: Allergies Allergy/AdvReac Type Severity Reaction Status Date / Time hydrochlorothiazide AdvReac Unknown Verified 09/21/20 06:34 lisinopril AdvReac Unknown Verified 09/21/20 06:34 rosuvastatin calcium * AdvReac Unknown Verified 09/21/20 06:34 [From [facility]] Review of Systems - Constitutional Constitutional: reports: Weight loss (weight 182.6lb 09/01/2020; weight 187.1lb 08/05/2020; weight 195lb on 07/08/2020). denies: Fever, Poor appetite - Ears, Nose & Throat Ears, Nose & Throat: reports: Hearing loss - Cardiovascular Cardiovascular: denies: Palpitations, Chest pain, Edema - Respiratory Respiratory: denies: Cough - Gastrointestinal Gastrointestinal: reports: Good appetite. denies: Constipation, Nausea - Genitourinary Genitourinary: denies: Dysuria - Musculoskeletal Musculoskeletal: reports: Stiffness, Limited range of motion (right shoulder), Assistive devices - Integumentary Integumentary: reports: Dryness - Neurological Neurological: reports: General weakness, Memory problems - Psychiatric Psychiatric: reports: Depression, Anxiety, Behavior disturbances, Other (Insomnia) - Hematologic/Lymphatic Hematologic/Lymph: reports: Other (No history of recurrent infections) - All Other Systems All Other Systems: reports: Reviewed and negative (ROS supplemented by Nahid mayes as patient is a poor historian due to dementia.) Physical Exam - Vital Signs Temperature: 36.3 C Pulse Rate: 62 O2 Saturation: 98 (on RA) Blood Pressure: 160/88 (left arm) - Physical Exam General Appearance: positive: No acute distress, Alert, Other (sitting on edge of bed) Eyes Bilateral: positive: Normal inspection ENT: positive: No signs of dehydration, Other (b/l temporal wasting, missing lower teeth) Neck: positive: Trachea midline Cardiovascular: positive: Irregularly irregular, Systolic murmur Respiratory: positive: No respiratory distress, Breath sounds nml. negative: Rales Abdomen: positive: Non-tender, Soft, Nml bowel sounds Skin: positive: Other (+bronze colored from sun) Extremities: positive: No pedal edema Neurologic/Psychiatric: positive: Mood/affect nml, Disoriented to place, Other (Engaged and pleasantly confused without s/s of agitation.) Palliative Care - POLST Patient has POLST: Yes POLST Status: DNR Pain: No pain (controlled with routine hydrocodone/acetaminophen) - Palliative Care Discussion: Patient after recent admission to the hospital for a non-STEMI in the setting of atrial fibrillation RVR and medication adjustments has demonstrated renal insufficiency from his previous baseline. After reduction of losartan from 100 mg to 50 mg daily he has had improvement of his creatinine from 1.8-1.6 today as well as with his GFR now improved to 41. He is not having any difficulty with urinary output. Given he has had improvement of his creatinine will continue on losartan 50 mg daily and will move forward in the future for reevaluation erectile to reassess renal function and daughter is amenable to this plan of care. The patient is demonstrating continued intermittent episodes of insomnia typically around midnight. Given the patient recently had dose adjustment of his quetiapine will not make any further dose adjustments at this time to either his trazodone or quetiapine and will continue to monitor and reassess in the future for dose adjustment for management of insomnia. However, discussed with the patient daughter given the patient's underlying dementia this may not be a fully feasible fixable problem and she acknowledges this and ultimately, the patient himself is not troubled by getting up around midnight. Supportive listening provided to both the patient and daughter, Fatoumata. Results - Lab Results Lab results reviewed: Yes Lab and Imaging Results: 10/03/2020 Sodium 139, potassium 4.1, BUN 26, creatinine 1.6, GFR 41, glucose 113, calcium 9.3 Impression and Recommendations - Palliative Care Impression: This is an 85-year-old gentleman with significant cardiac history with recent non-STEMI and A. fib with RVR in the setting of dementia with behavioral disturbances with renal in impairments. At baseline, the patient does not have renal impairment but given recent hospitalization with non-STEMI has had hypoperfusion and has had a reduction in his ARB with improvement of his renal function however, not quite back to baseline. He denies any complaints of angina today. Goal remains on comfort measures and quality of life. Palliative care will continue to provide support, care coordination, pain and symptom management as well as anticipatory guidance. Recommendations/Counseling Done: 1. Renal insufficiency in the setting of recent non-STEMI as well as possible renal hypoperfusion due to his recent A. fib with RVR. Baseline creatinine 0.9- 1.1. Last creatinine obtained on this was 1.8 today, creatinine 1.6 on obtainment with improvement. Continue losartan 50 mg daily to reduce potential insulin injuries. Avoid nephrotoxins. Follow-up with reevaluation of renal function at next follow-up and evaluation or sooner if concerns. Daughter is in agreement with above-stated plan. 2. Insomnia. Patient is not troubled by waking up around midnight. Presently had recent dose adjustment of quetiapine from 50 mg to 75 mg nightly. He is also on trazodone 50 mg nightly. Discussed avoidance of taking frequent naps during the day to allow for ease of sleep in the evenings. Given the patient's underlying dementia it is unclear how effective any medication adjustments may be in the future for management however, given the recent dose adjustments am hesitant to make any medication changes at this time and see for the patient settles after his recent hospitalization and daughter is in agreement with this plan. 3. Dementia with behavioral disturbances. Continue quetiapine 25 mg in the morning. Continue quetiapine 75 mg nightly. Continue duloxetine 30 mg daily. The patient is not demonstrating any signs or symptoms of agitation or anxiety. He has not had any attempts at elopement. Given the patient's advanced age and chronic comorbidities a vaginal decline is expected. Total time spent 25 minutes with greater than 50% of this spent in counseling and coordination of care with patient and ocular care technologist; obtainment of labwork;examination of patient; review of symptom management and anticipatory guidance. Contacted the patient's daughter/Fatoumata JOSUE at [phone] and updated regarding plan of care with questions answered and addressed and in agreement moving forward. Disclaimer: The chart note was formulated using voice recognition technology and unfortunately sound alike errors may occur.
== END 2020-10-03 12:16 | disposition home or self-care (01) ==
LOC: PC 12:15
PROVIDERS: ATTEND Nurse Practitioner Family
DX: Z51.5 Encounter for palliative care (principal); N28.9 Disorder of kidney and ureter, unspecified; I10 Essential (primary) hypertension; F03.91 Unspecified dementia, unspecified severity, with behavioral disturbance; G47.00 Insomnia, unspecified; R63.4 Abnormal weight loss; I48.91 Unspecified atrial fibrillation; I21.4 Non-ST elevation (NSTEMI) myocardial infarction; Z79.899 Other long term (current) drug therapy; Z79.82 Long term (current) use of aspirin; Z66 Do not resuscitate
CPT/HCPCS: 99348

== ENCOUNTER 2020-10-03 12:56 | Outpatient (CLI) | payer MEDICARE ==
[2020-10-03 13:14] LABS: CALCIUM 9.3 mg/dL (8.5-10.3); CREATININE 1.6 mg/dL (0.6-1.2); POTASSIUM 4.1 mmol/L (3.5-5.0)
== END 2020-10-03 12:57 | disposition home or self-care (01) ==
LOC: LAB.R 12:56
PROVIDERS: ATTEND Nurse Practitioner Family
DX: I11.0 Hypertensive heart disease with heart failure (principal); I50.9 Heart failure, unspecified
CPT/HCPCS: 80048

== ENCOUNTER 2020-10-29 12:30 | Outpatient (CLI) | payer MEDICARE ==
--- NOTE | 2020-10-29 16:19 | CONSULTATION NOTE ---
Palliative Care Follow Up - Referral Referring Provider: LESLEY Fierro Time of Visit: 4600-8444 Referral setting: Adult Family Home Referral Reason: Dementia with behavior/OA pain - Information Sources Records reviewed: Previous records reviewed History/Review of Systems obtained from: Patient, Caregiver (Sasha) Exam limitations: Clinical condition (Advanced Dementia) - History of Present Illness Update Brief HPI Update: This is an 85-year-old gentleman who was seen and evaluated today at [facility] due to recent exacerbations of dementia with behavioral disturbances and chronic pain due to osteoarthritis. Due to increasing agitation and anxiety on 10/09 the patient's quetiapine was increased to quetiapine 25 mg in the morning, quetiapine 25 mg in the afternoon and quetiapine 75 mg in the evening. The patient also continues 1 duloxetine 30 mg daily not only for anxiety and mood stabilization but for chronic pain as well. Per the patient's caregiver he is becoming increasingly agitated. He is convulsed compulsive with counting in his clothes and off and is wrong in his count. He also has 3 giraldo but he believes he has 7 and often misplaces them and believes that other residents have taken his clothes or his giraldo. Last week when caregivers were attending to another resident the patient and when outside in his wheelchair down the driveway and the wheelchair got chalk and the patient toppled over where a neighbor saw. The patient insists on sitting out front on the deck versus the back deck which makes it more difficult for monitoring. Caregivers also report that with the recent changes in the patient's antihypertensive medications due to his recent non-STEMI that occurred in September 2020 the patient is reporting increased fatigue and therefore will frequently refuse his medications until later in the day believing that his medications are contributing to his fatigue. He has a history of chronic pain due to osteoarthritis most specifically to his bilateral shoulders and knees. He is presently on hydrocodone/acetaminophen schedule 3 times daily however, the patient does not want to take any "more medications" for pain management. In a sitting outside in his wheelchair on the front patio. Conversant and no evidence of acute distress. Past Medical History: Patient has a past medical history of congestive heart failure ejection fraction 60-65%(09/21/2020), hypertension, coronary artery disease, ID x2 (last September), atrial fibrillation, dementia, subdural hematoma with evacuation age 17, BPH, anxiety, osteoarthritis, insomnia, status post CABG. Social History - Living Situation Living arrangement: Adult family home Living Situation: Alone (has caregivers there) Support System: Patient is from his . The patient and his had 6 children together. The patient's daughter, Fatoumata is his DPOA with contact phone [phone]. The patient was born in [place]. He resides at [facility]. Concerns regarding the patient frequently leaving the facility impulsively and not being able to control may result in seeking alternative placement [facility]. Medications/Allergies - Medications Home Medications: Ambulatory Orders Medication Instructions Recorded Confirmed Losartan Potassium 50 mg PO DAILY 09/13/15 09/28/20 Aspirin 81 mg PO DAILY 06/27/19 09/28/20 Diclofenac Sodium [Voltaren] TOP DAILY PRN 06/27/19 06/27/19 Furosemide [Lasix] 20 mg PO DAILY 06/27/19 09/28/20 Nitroglycerin 0.4 mg SL DAILY PRN 06/27/19 09/28/20 Acetaminophen [Tylenol] 650 mg PO Q4HR PRN MDD NTE 3g per 02/01/20 04/16/20 24hours Magnesium Hydroxide [Milk of 30 ml PO DAILY PRN MDD If no BM in 02/01/20 09/28/20 Magnesia] 3 days QUEtiapine [SEROquel] 75 mg PO QPM 02/01/20 09/28/20 Tamsulosin HCl [Flomax] 0.4 mg PO DAILY 02/01/20 09/28/20 DULoxetine [Cymbalta] 30 mg PO DAILY 03/07/20 09/28/20 QUEtiapine [SEROquel] 25 mg PO .MORNING 03/07/20 09/28/20 HYDROcod/ACETAM 5/325 [[place] 5/325] 1 tab PO TID 04/04/20 09/28/20 Hydrocodone/Acetaminophen [[place] 1 tab PO Q6HR PRN 04/16/20 09/28/20 5-325 Tablet] traZODone [Desyrel] 50 mg PO QPM 05/03/20 09/28/20 Docusate Sodium [Dss] 1 cap PO DAILY 07/11/20 09/28/20 Senna [Senokot] 1 tab PO DAILY PRN 07/11/20 09/28/20 Isosorbide Mononitrate ER [Imdur] 60 mg PO BID 09/21/20 09/28/20 Atorvastatin [Lipitor] 20 mg PO QPM #30 tablet 09/23/20 09/28/20 Metoprolol Succinate [Toprol Xl] 50 mg PO BID #60 tablet 09/23/20 09/28/20 diltiaZEM [Cardizem] 30 mg PO 1200 #30 tablet 09/23/20 09/28/20 QUEtiapine [SEROquel] 50 mg PO .AFTERNOON 10/09/20 10/09/20 - Allergies Allergies/Adverse Reactions: Allergies Allergy/AdvReac Type Severity Reaction Status Date / Time hydrochlorothiazide AdvReac Unknown Verified 09/21/20 06:34 lisinopril AdvReac Unknown Verified 09/21/20 06:34 rosuvastatin calcium * AdvReac Unknown Verified 09/21/20 06:34 [From [facility]] Review of Systems - Constitutional Constitutional: reports: Fatigue (see HPI, due to increase in beta camilo due to NSTEMI in September 2020), Weight loss (weight 182.6lb 09/01/2020; weight 187.1lb 08/05/2020; weight 195lb on 07/08/2020). denies: Fever, Poor appetite - Eyes Eyes: denies: Irritation - Ears, Nose & Throat Ears, Nose & Throat: reports: Hearing loss - Cardiovascular Cardiovascular: denies: Palpitations, Chest pain, Edema - Respiratory Respiratory: denies: Cough - Gastrointestinal Gastrointestinal: reports: Good appetite. denies: Constipation (controlled per staff report), Nausea - Genitourinary Genitourinary: denies: Dysuria - Musculoskeletal Musculoskeletal: reports: Stiffness, Limited range of motion (right shoulder), Joint pain (b/l shoulders and knees), Assistive devices - Integumentary Integumentary: denies: Rash - Neurological Neurological: reports: General weakness, Memory problems - Psychiatric Psychiatric: reports: Depression, Anxiety, Behavior disturbances (see HPI) - Hematologic/Lymphatic Hematologic/Lymph: reports: Other (No history of recurrent infections) - All Other Systems All Other Systems: reports: Reviewed and negative (ROS supplemented by caregiver, Sasha as patient is a poor historian due to dementia.) Physical Exam - Vital Signs Temperature: 36.1 C Pulse Rate: 62 O2 Saturation: 96 Blood Pressure: 152/60 (left arm) - Physical Exam General Appearance: positive: No acute distress, Alert, Other (OOB in wheelchair) Eyes Bilateral: positive: Normal inspection ENT: positive: No signs of dehydration Neck: positive: Trachea midline Cardiovascular: positive: Irregularly irregular, Systolic murmur Respiratory: positive: No respiratory distress, Breath sounds nml. negative: Rales Abdomen: positive: Non-tender, Soft, Nml bowel sounds Skin: positive: Dryness Extremities: positive: Pedal edema (Trace b/l pedal edema). negative: Full ROM (Decreased ROM right shoulder) Neurologic/Psychiatric: positive: Mood/affect nml, Disoriented to place Palliative Care - POLST Patient has POLST: Yes POLST Status: DNR, Comfort Measures Pain: Comment (Staff report increased reports of pain, however patient declines PRN hydrocodone/acetaminophen as he does not want to take more medications. Tod ay, the patient reports he is without pain and is comfortable with routine pain medication.) Tiredness/Fatigue: Mild (1-3) (feels like he is taking more naps per his report) - Palliative Care Discussion: The patient is exhibiting more impulsive behaviors that are not easily managed are controlled with increase and agitation and anxiety would benefit from dose adjustment of his quetiapine. Oil Refinery Operator of facility has expressed some concerns about the patient's safety if he continues to try to flee from the facility. The patient himself has some perseverating behaviors does not recall the events or circumstances leading up to him attempting to leave the facility. Patient would benefit from further dose titration of hydrocodone/acetaminophen based on caregivers report however, the patient is extremely reluctant for taking any more medications given his pill burden due to his complex cardiac history. Therefore, as the patient appears presently comfortable and overall mainly well controlled we will continue with hydrocodone/acetaminophen 5 mg / 325 mg 3 times daily as scheduled but if persistent reports of generalized pain will increase to 4 times daily dosing and monitor the patient's allowance of administration. Impression and Recommendations - Palliative Care Impression: This is an 85-year-old gentleman with significant cardiac history with increased agitation and paranoia due to his underlying dementia with behavioral disturbances would benefit from further dose adjustment of his quetiapine. We will increase his afternoon quetiapine to 50 mg with new Rx sent [facility]. Patient denies any complaints of angina today. He has a longstanding history of chronic pain due to osteoarthritis and at the present time is adverse to having any increase in his pain medication due to pill burden. Palliative care will continue to provide support, care coordination, pain and symptom management as well as anticipatory guidance. Recommendations/Counseling Done: 1. Dementia with a behavioral disturbances with underlying paranoia. On no disease modifying agents. Continue quetiapine 25 mg in the morning. Increase quetiapine to 50 mg in the afternoon. Continue quetiapine 75 mg nightly. Continue duloxetine 30 mg daily. The patient has been demonstrating increased signs and symptoms of paranoia and agitation and has had 2 attempts at elopement. Given the patient's advanced age and chronic comorbidities of a gradual decline is expected. 2. History of non-STEMI with hypertension. Non-STEMI x2 with last in September 2020. Is at high risk for subsequent sequelae. Patient reporting increased fatigue edges which is likely due to increase in metoprolol 50 mg twice daily. Continue to monitor and may consider dose reduction in the future if fatigue continues to be burdensome and blood pressures are in acceptable range. Continue to tell exam 30 mg daily, Imdur 60 mg twice daily, and Lasix 20 mg daily. Continue aspirin 81 mg daily for cardiac prophylaxis. No reports of cardiac complaints. 3.Osteoarthritis, multiple joints involved. Continue hydrocodone/acetaminophen 5 mg / 325 mg 1 tablet 3 times daily at 8 AM, 2 PM, and 8 PM. Patient has acetaminophen available as needed not to exceed 3 g daily from all sources. Continue Voltaren gel application as needed to affected joints. Continue duloxetine 30 mg daily. Made recommendation of increase of hydrocodone/acetaminophen 5 mg / 325 mg to 4 times daily dosing however, the patient is averse to increase of his medications due to increased pill burden and presently relays that his symptoms are adequately controlled. We will con tinue to monitor and if reports continue to persist regarding patient's reports of pain will increase to 4 times daily dosing of hydrocodone/acetaminophen. 4. Congestive heart failure. Mild lower extremity edema noted on evaluation. No adventitious lung sounds. Continue furosemide 20 mg daily. CPT 21350 Plan of care reviewed with the patient as well as caregiver, Amanda. Updated business systems administrator, Debi. Contacted the patient's daughter/DPOA Fatoumata at [phone] updating regarding plan of care and awaiting return call back with any additional questions or concerns. Disclaimer: The chart note was formulated using voice recognition technology and unfortunately sound alike errors may occur.
== END 2020-10-29 12:31 | disposition home or self-care (01) ==
LOC: PC 12:30
PROVIDERS: ATTEND Nurse Practitioner Family
DX: Z51.5 Encounter for palliative care (principal); F03.91 Unspecified dementia, unspecified severity, with behavioral disturbance; F22 Delusional disorders; M19.012 Primary osteoarthritis, left shoulder; M19.011 Primary osteoarthritis, right shoulder; M17.0 Bilateral primary osteoarthritis of knee; I25.2 Old myocardial infarction; I11.0 Hypertensive heart disease with heart failure; I50.9 Heart failure, unspecified; Z95.1 Presence of aortocoronary bypass graft; Z66 Do not resuscitate
CPT/HCPCS: 99349

== ENCOUNTER 2020-11-09 15:10 | Outpatient (CLI) | payer MEDICARE ==
--- NOTE | 2020-11-09 17:52 | CONSULTATION NOTE ---
Palliative Care Follow Up - Referral Referring Provider: LESLEY Fierro Time of Visit: 3507-1515 Referral setting: Adult Family Home Referral Reason: Dementia with behavior/Weight loss - Information Sources Records reviewed: Previous records reviewed History/Review of Systems obtained from: Patient, Caregiver (Sasha) Exam limitations: Clinical condition (Dementia) - History of Present Illness Update Brief HPI Update: This is an 85-year-old gentleman who was seen and evaluated today at [facility] and follow-up due to continued exacerbations of dementia with behavioral disturbances. The patient had adjustment of his quetiapine 1 10/09 that was increased due to escalating behaviors. Unfortunately, the patient was having escalating behaviors earlier this week and facility director, Debi contacted palliative care on 11/05 regarding behavioral concerns. A UA with microscopy was obtained and was negative for urinary tract infection therefore, rule out. Due to possible concerns of paradoxical response to increasing quetiapine the a.m. dose of quetiapine was discontinued and Zyprexa 2.5 mg was added in the evening as well as Zyprexa ODT 5 mg to be administered under the time 3 times daily as needed for acute agitation or anxiety. Caregiver today reports that the patient has been cooperative with her today. When she was noticing first thing in the morning that he was becoming slightly restless she administered 5 mg Zyprexa ODT and since that time the patient has been calm and amenable. The caregiver does report that yesterday, the patient was significantly agitated and would not take any of his medications. The patient himself feels like he is "drugged." He denies any hallucinations or hearing voices. Staff reports that he is sleeping better during the night. The patient is also requiring more assistance with needs such as toileting. Staff also note that he is no longer requesting double portions typically consuming 1 entire portion. Last weight was 0.82 pounds with none obtained recently and request that a new weight be obtained. The patient is seen out of bed in his wheelchair, wound with mild stable having not been shaved. No evidence of acute distress. Past Medical History: Patient has a past medical history of congestive heart failure ejection fraction 60-65%(09/21/2020), hypertension, coronary artery disease, [place] x2 (last September 2020), atrial fibrillation, dementia, subdural hematoma with evacuation age 17, BPH, anxiety, osteoarthritis, insomnia, status post CABG. Social History - Living Situation Living arrangement: Adult family home Living Situation: Alone (has caregivers there) Support System: Patient is from his . The patient and his had 6 children together. The patient's daughter, Fatoumtaa is his DPOA with contact phone [phone]. The patient was born in [place]. He resides at [place] [facility]. . Medications/Allergies - Medications Home Medications: Ambulatory Orders Medication Instructions Recorded Confirmed Losartan Potassium 50 mg PO DAILY 09/13/15 09/28/20 Aspirin 81 mg PO DAILY 06/27/19 09/28/20 Diclofenac Sodium [Voltaren] TOP DAILY PRN 06/27/19 06/27/19 Furosemide [Lasix] 20 mg PO DAILY 06/27/19 09/28/20 Nitroglycerin 0.4 mg SL DAILY PRN 06/27/19 09/28/20 Acetaminophen [Tylenol] 650 mg PO Q4HR PRN MDD NTE 3g per 02/01/20 04/16/20 24hours Magnesium Hydroxide [Milk of 30 ml PO DAILY PRN MDD If no BM in 02/01/20 09/28/20 Magnesia] 3 days QUEtiapine [SEROquel] 75 mg PO QPM 02/01/20 09/28/20 Tamsulosin HCl [Flomax] 0.4 mg PO DAILY 02/01/20 09/28/20 DULoxetine [Cymbalta] 30 mg PO DAILY 03/07/20 09/28/20 HYDROcod/ACETAM 5/325 [[place] 5/325] 1 tab PO TID 04/04/20 09/28/20 Hydrocodone/Acetaminophen [[place] 1 tab PO Q6HR PRN 04/16/20 09/28/20 5-325 Tablet] Docusate Sodium [Dss] 1 cap PO DAILY 07/11/20 09/28/20 Senna [Senokot] 1 tab PO DAILY PRN 07/11/20 09/28/20 Isosorbide Mononitrate ER [Imdur] 60 mg PO BID 09/21/20 09/28/20 Atorvastatin [Lipitor] 20 mg PO QPM #30 tablet 09/23/20 09/28/20 Metoprolol Succinate [Toprol Xl] 50 mg PO BID #60 tablet 09/23/20 09/28/20 diltiaZEM [Cardizem] 30 mg PO 1200 #30 tablet 09/23/20 09/28/20 OLANZapine ODT [Zyprexa Odt] 5 mg PO TID PRN 11/11/20 11/11/20 OLANZapine [Zyprexa] 2.5 mg PO BID 11/11/20 11/11/20 - Allergies Allergies/Adverse Reactions: Allergies Allergy/AdvReac Type Severity Reaction Status Date / Time hydrochlorothiazide AdvReac Unknown Verified 09/21/20 06:34 lisinopril AdvReac Unknown Verified 09/21/20 06:34 rosuvastatin calcium * AdvReac Unknown Verified 09/21/20 06:34 [From [facility]] Review of Systems - Constitutional Constitutional: reports: Weight loss (weight 182.6lb 09/01/2020; weight 187.1lb 08/05/2020; weight 195lb on 07/08/2020). denies: Fever - Ears, Nose & Throat Ears, Nose & Throat: reports: Hearing loss - Cardiovascular Cardiovascular: denies: Palpitations, Chest pain, Edema - Gastrointestinal Gastrointestinal: reports: Other (Decrease in portion size, see HPI). denies: Constipation (controlled per staff report) - Genitourinary Genitourinary: denies: Dysuria - Musculoskeletal Musculoskeletal: reports: Stiffness, Limited range of motion (right shoulder), Assistive devices - Integumentary Integumentary: denies: Rash - Neurological Neurological: reports: General weakness, Memory problems - Psychiatric Psychiatric: reports: Depression, Anxiety, Behavior disturbances. denies: Hallucinations - Hematologic/Lymphatic Hematologic/Lymph: denies: Recurrent infections - All Other Systems All Other Systems: reports: Reviewed and negative (ROS supplemented by caregiver, Sasha as patient is a poor historian due to dementia.) Physical Exam - Vital Signs Temperature: 36.5 C Pulse Rate: 56 O2 Saturation: 98 (on RA) Blood Pressure: 156/72 (right wrist) - Physical Exam General Appearance: positive: No acute distress, Alert, Other (OOB in wheelchair) Eyes Bilateral: positive: Normal inspection ENT: positive: No signs of dehydration Neck: positive: Trachea midline Cardiovascular: positive: Irregularly irregular, Systolic murmur Respiratory: positive: No respiratory distress, Breath sounds nml Abdomen: positive: Non-tender, Soft, Nml bowel sounds Skin: positive: Dryness Extremities: positive: Pedal edema (Trace b/l pedal edema) Neurologic/Psychiatric: positive: Mood/affect nml (cooperative and calm), Disoriented to place Palliative Care - POLST Patient has POLST: Yes POLST Status: DNR, Comfort Measures Pain: Comment (Controlled with routine hydrocodone/acetaminophen) Anorexia: Mild (1-3), Weight loss Sleep: Sleep improved - Palliative Care Discussion: The patient has demonstrated escalating behaviors most specifically with the staff as well as trying to leave the facility due to his underlying dementia which may have been paradoxical with the recent increase of his quetiapine. He has tolerated a dose reduction of his quetiapine and addition of routine Zyprexa 2.5 mg in the evening. Given the staff is noticing behavioral disturbances in the morning will further titrate down on the quetiapine to only have 75 mg in the evening and increase Zyprexa to 2.5 mg twice daily to manage the patient's behaviors related to his underlying dementia for comfort and safety. The patient is also displaying signs and symptoms of protein calorie malnutrition with visible weight loss. Unable to obtain a weight today and request the facility staff obtain a weight and record. The patient is also requesting smaller portion sizes when previously was requesting double portions and now only consuming 1 portion. This is likely indicative of progression of his dementia and was relayed with his daughter/DPOA today. Impression and Recommendations - Palliative Care Impression: This is an 85-year-old gentleman with significant cardiac history with increased agitation due to his underlying dementia with behavioral disturbances which would benefit from further dose increase of his Zyprexa and dose reduction of his quetiapine. He will remain on quetiapine 75 mg in the evening and increase to Zyprexa 2.5 mg twice daily. He is also demonstrating signs and symptoms of visible weight loss and would benefit from a repeat weight for monitoring. Palliative care will continue to provide support, care coordination, pain and symptom management as well as anticipatory guidance. Recommendations/Counseling Done: 1. Dementia with behavioral disturbances with underlying paranoia and agitation. No disease modifying agents. Decrease quetiapine to 75 mg nightly with goal to eventually discontinue altogether if tolerates increases of Zyprexa. Increase Zyprexa to 2.5 mg twice daily. Continue Zyprexa ODT 5 mg 3 times daily as needed for acute anxiety or agitation with the ideal goal not being to have to administer the ODT of Zyprexa. Continue duloxetine 30 mg daily. If patient tolerates the increase of Zyprexa and behavior to's are managed and the patient is comfortable then will send a prescription to the patient's mail order pharmacy. Given the patient's advanced age and chronic comorbidities a gradual decline is expected. 2. Protein calorie malnutrition. Visible weight loss noted. Request that facility obtain a more recent weight and record for monitoring. Last recorded weight was 182 pounds. Patient is having a reduction in the quantity of his meals likely indicative of advancement of his underlying dementia. Continue to encourage foods that he finds enjoyable. Continue to monitor. Total time spent 30 minutes with greater than 50% of the spent in counseling and coordination of care with facility staff as well as the patient's daughter/LIAT Ham at [phone] updating regarding plan of care and verbalizing agreement for plan of care moving forward and questions answered and addressed. Disclaimer: The chart note was formulated using voice recognition technology and unfortunately sound alike errors may occur.
== END 2020-11-09 15:11 | disposition home or self-care (01) ==
LOC: PC 15:10
PROVIDERS: ATTEND Nurse Practitioner Family
DX: Z51.5 Encounter for palliative care (principal); F03.91 Unspecified dementia, unspecified severity, with behavioral disturbance; E46 Unspecified protein-calorie malnutrition; R63.4 Abnormal weight loss; Z66 Do not resuscitate
CPT/HCPCS: 99348

== ENCOUNTER 2020-11-15 16:46 | Outpatient (CLI) | payer MEDICARE | END 2020-11-15 16:47 | disposition critical access hospital (66) | LOC: EMS 16:46 | DX: R41.0 Disorientation, unspecified (principal); F03.90 Unspecified dementia, unspecified severity, without behavioral disturbance, psychotic disturbance, mood disturbance, and anxiety | CPT/HCPCS: A0425; A0429 ==

== ENCOUNTER 2020-11-15 17:04 | Emergency (ER) | payer MEDICARE ==
--- NOTE | 2020-11-15 17:41 | ED Physician Documentation ---
PD HPI ALTERED MENTAL STATUS - Stated complaint Stated Complaint: DIMENTIA/AMS - Chief complaint Chief Complaint: Neuro - History obtained from History obtained from: Patient, EMS - Additional information Additional information: He presents by ambulance for reported belligerent behavior at adult family home. Recent discontinuation of quetiapine because of potential paradoxical response and getting 2.5 mg of Zyprexa iBID as well as 5 mg up to 3 times a day as needed for agitation. Comes in by ambulance. Family is reportedly on the way so history is limited initially. According to previous palliative care notes current dosing of his quetiapine is 75 mg at night and increased Zyprexa to 2.5 mg twice a day. Review of Systems Unable to obtain: Confused PD PAST MEDICAL HISTORY - Past Medical History Cardiovascular: Congestive heart failure, Hypertension, Coronary artery disease, [place], Atrial fibrillation Respiratory: None Neuro: Dementia, Head injury Endocrine/Autoimmune: None GI: None : Benign prostate hypertrophy HEENT: None Psych: Anxiety Musculoskeletal: Osteoarthritis Derm: None - Past Surgical History Past Surgical History: Yes General: Other Ortho: Hip replacement, Other Cardiovascular: CABG Neuro: Craniotomy HEENT: Cataracts - Present Medications Home Medications: Ambulatory Orders Medication Instructions Recorded Confirmed Losartan Potassium 50 mg PO DAILY 09/13/15 11/16/20 Aspirin 81 mg PO DAILY 06/27/19 11/16/20 Diclofenac Sodium [Voltaren] TOP DAILY PRN 06/27/19 06/27/19 Furosemide [Lasix] 20 mg PO DAILY 06/27/19 11/16/20 Nitroglycerin 0.4 mg SL DAILY PRN 06/27/19 11/16/20 Acetaminophen [Tylenol] 650 mg PO Q4HR PRN MDD NTE 3g per 02/01/20 11/16/20 24hours Magnesium Hydroxide [Milk of 30 ml PO DAILY PRN MDD If no BM in 02/01/20 11/16/20 Magnesia] 3 days QUEtiapine [SEROquel] 75 mg PO QPM 02/01/20 11/16/20 Tamsulosin HCl [Flomax] 0.4 mg PO DAILY 02/01/20 11/16/20 DULoxetine [Cymbalta] 30 mg PO DAILY 03/07/20 11/16/20 HYDROcod/ACETAM 5/325 [[place] 5/325] 1 tab PO TID 04/04/20 11/16/20 Hydrocodone/Acetaminophen [[place] 1 tab PO Q6HR PRN 04/16/20 11/16/20 5-325 Tablet] Docusate Sodium [Dss] 1 cap PO DAILY 07/11/20 11/16/20 Senna [Senokot] 1 tab PO DAILY PRN 07/11/20 11/16/20 Isosorbide Mononitrate ER [Imdur] 60 mg PO BID 09/21/20 11/16/20 Atorvastatin [Lipitor] 20 mg PO QPM #30 tablet 09/23/20 11/16/20 Metoprolol Succinate [Toprol Xl] 50 mg PO BID #60 tablet 09/23/20 11/16/20 diltiaZEM [Cardizem] 30 mg PO 1200 #30 tablet 09/23/20 11/16/20 OLANZapine ODT [Zyprexa Odt] 5 mg PO TID PRN 11/11/20 11/16/[address] [Depakote Dr] 125 mg PO BID 11/15/20 11/16/20 - Allergies Allergies/Adverse Reactions: Allergies Allergy/AdvReac Type Severity Reaction Status Date / Time hydrochlorothiazide AdvReac Unknown Verified 11/15/20 17:19 lisinopril AdvReac Unknown Verified 11/15/20 17:19 rosuvastatin calcium * AdvReac Unknown Verified 11/15/20 17:19 [From Crestor] - Social History Does the pt smoke?: No Smoking Status: Former smoker Does the pt drink ETOH?: No Does the pt have substance abuse?: No - Immunizations Immunizations are current?: Yes Immunizations: TDAP >10years/unknown - POLST Patient has POLST: Yes POLST Status: DNR PD ED PE NORMAL - Vitals Vital signs reviewed: Yes - General General: No acute distress, Other (Alert and oriented to person, he struggles to say that he is in the hospital. He is completely oblivious of the date or ye ar.) - HEENT HEENT: PERRL, EOMI - Neck Neck: Supple, no meningeal sign, No bony TTP - Cardiac Cardiac: RRR, No murmur - Respiratory Respiratory: No respiratory distress, Clear bilaterally - Abdomen Abdomen: Non tender - Derm Derm: Normal color, Warm and dry - Extremities Extremities: No edema, No calf tenderness / cord - Neuro Eye Opening: Spontaneous Motor: Obeys Commands Verbal: Confused GCS Score: 14 Results - Vitals Vitals: Vital Signs - 24 hr 11/17/20 11/17/20 11/17/20 05:03 14:58 18:06 Temperature 37.1 C 37.1 C Heart Rate 77 76 69 Respiratory 20 18 18 Rate Blood Pressure 183/100 H 187/95 H 201/92 H O2 Saturation 95 98 98 Oxygen O2 Source Room air - Labs Labs: Laboratory Tests 11/15/20 11/15/20 18:16 19:15 Urine Color YELLOW Urine Clarity CLEAR Urine pH 6.0 Ur Specific Imperial 1.015 Urine Protein NEGATIVE Urine Glucose (UA) NEGATIVE Urine Ketones NEGATIVE Urine Occult Blood NEGATIVE Urine Nitrite NEGATIVE Urine Bilirubin NEGATIVE Urine Urobilinogen 0.2 (NORMAL) Ur Leukocyte Esterase NEGATIVE Ur Microscopic Review NOT INDICATED Urine Culture Comments NOT INDICATED Nasal Adenovirus (PCR) NOT DETECTED Nasal B. parapertussis DNA (PCR) NOT DETECTED Nasal Coronavir 229E PCR NOT DETECTED Nasal Coronavir HKU1 PCR NOT DETECTED Nasal Coronavir NL63 PCR NOT DETECTED Nasal Coronavir OC43 PCR NOT DETECTED Nasal Enterovir/Rhinovir PCR NOT DETECTED Nasal Influenza B PCR NOT DETECTED Nasal Influenza A PCR NOT DETECTED Nasal Parainfluen 1 PCR NOT DETECTED Nasal Parainfluen 2 PCR NOT DETECTED Nasal Parainfluen 3 PCR NOT DETECTED Nasal Parainfluen 4 PCR NOT DETECTED Nasal RSV (PCR) NOT DETECTED Nasal B.pertussis DNA PCR NOT DETECTED Nasal C.pneumoniae (PCR) NOT DETECTED [place] Human Metapneumo PCR NOT DETECTED Nasal M.pneumoniae (PCR) NOT DETECTED Nasal SARS-CoV-2 (PCR) NOT DETECTED PD MEDICAL DECISION MAKING - ED course ED course: 85-year-old gentleman with severe dementia presents by [facility] because he was reportedly belligerent at the adult family home. Per the nurse who talked to the daughter on the phone, they will not take her back. No specific medical complaints or concern. He did have some episodes of bradycardia here which were significant but asymptomatic. Given that he is comfort measures only no further work-up done on those. Update, November 16 PM. Social work has one place that is looking at him over the weekend but likely he will be boarding here until next week. Noted that his blood pressure was on the high side and I changed his losartan to twice daily. Updates, November 17 PM. Stable throughout my shift today without specific complaints, still awaiting placement. Departure - Departure Clinical Impression: Dementia with behavioral disturbance Condition: Stable
[2020-11-15 18:38] LABS: BILIRUBIN,URINE NEGATIVE (NEGATIVE); GLUCOSE, URINE (UA) NEGATIVE (NEGATIVE); KETONES,URINE (UA) NEGATIVE (NEGATIVE); LEUKOCYTE ESTERASE, URINE NEGATIVE (NEGATIVE); NITRITE,URINE NEGATIVE (NEGATIVE); OCCULT BLOOD,URINE NEGATIVE (NEGATIVE); PROTEIN,URINE NEGATIVE (NEGATIVE); UROBILINOGEN,URINE 0.2 (NORMAL) E.U./dL (NORMAL)
[2020-11-15 18:39] LABS: CLARITY,URINE CLEAR (CLEAR)
[2020-11-15 20:16] LABS: B. PARAPERTUSSIS- RESP PCR PAN NOT DETECTED; B. PERTUSSIS- RESP PCR PANEL NOT DETECTED; C. PNEUMONIAE- RESP PCR PANEL NOT DETECTED; CORONAVIRUS 229E-RESP PCR NOT DETECTED; CORONAVIRUS HKU1-RESP PCR NOT DETECTED; CORONAVIRUS NL63-RESP PCR NOT DETECTED; CORONAVIRUS OC43-RESP PCR NOT DETECTED; HUMAN METAPNEUMOVIRUS NOT DETECTED; INFLUENZA A- RESP PCR PANEL NOT DETECTED; INFLUENZA B - RESP PCR PANEL NOT DETECTED; M. PNEUMONIAE- RESP PCR PANEL NOT DETECTED; PARAINFLUENZA VIRUS 1 NOT DETECTED; PARAINFLUENZA VIRUS 2 NOT DETECTED; PARAINFLUENZA VIRUS 3 NOT DETECTED; PARAINFLUENZA VIRUS 4 NOT DETECTED; RHINOVIRUS/ENTEROVIRUS NOT DETECTED; RSV- RESP PCR PANEL NOT DETECTED; SARS-CoV-2 -RESP PCR PANEL NOT DETECTED
[2020-11-15] MEDS: DIVALPROEX ER 250 MG TABLET PO SCH (20:31)
[2020-11-15] MEDS: DOCUSATE SODIUM 100 MG CAPSULE PO SCH (20:31)
[2020-11-15] MEDS: OLANZapine ODT 5 MG TABLET TL SCH (20:32)
[2020-11-15] MEDS: ATORVASTATIN 10 MG TABLET PO SCH (20:34)
[2020-11-15] MEDS: OLANZapine ODT 5 MG TABLET TL PRN (23:13)
[2020-11-16] MEDS ORDERED: LOSARTAN 50 MG TABLET PO SCH ×2 (09:00→19:00)
[2020-11-16] MEDS: FUROSEMIDE 20 MG TABLET PO SCH (10:54)
[2020-11-16] MEDS: ASPIRIN CHEW 81 MG TABLET PO SCH (10:54)
[2020-11-16] MEDS: DOCUSATE SODIUM 100 MG CAPSULE PO SCH ×2 (10:54→20:53)
[2020-11-16] MEDS: DIVALPROEX ER 250 MG TABLET PO SCH ×2 (10:55→20:53)
[2020-11-16] MEDS: DULoxetine 30 MG CAPSULE PO SCH (10:56)
[2020-11-16] MEDS: TAMSULOSIN 0.4 MG CAPSULE PO SCH (10:57)
[2020-11-16] MEDS: OLANZapine ODT 5 MG TABLET TL SCH ×2 (10:59→20:53)
[2020-11-16] MEDS: ATORVASTATIN 10 MG TABLET PO SCH (20:53)
[2020-11-16] MEDS: LOSARTAN 50 MG TABLET PO SCH (20:53)
[2020-11-17] MEDS ORDERED: OLANZapine ODT 5 MG TABLET TL STA (02:08)
[2020-11-17] MEDS ORDERED: ACETAMINOPHEN 325 MG TABLET PO STA (04:44)
[2020-11-17] MEDS: ASPIRIN CHEW 81 MG TABLET PO SCH (10:58)
[2020-11-17] MEDS: DIVALPROEX ER 250 MG TABLET PO SCH ×2 (10:58→21:59)
[2020-11-17] MEDS: DOCUSATE SODIUM 100 MG CAPSULE PO SCH ×2 (10:59→22:00)
[2020-11-17] MEDS: LOSARTAN 50 MG TABLET PO SCH ×2 (10:59→22:00)
[2020-11-17] MEDS: DULoxetine 30 MG CAPSULE PO SCH (10:59)
[2020-11-17] MEDS: OLANZapine ODT 5 MG TABLET TL SCH ×2 (10:59→22:00)
[2020-11-17] MEDS: TAMSULOSIN 0.4 MG CAPSULE PO SCH (10:59)
[2020-11-17] MEDS: FUROSEMIDE 20 MG TABLET PO SCH (10:59)
[2020-11-17] MEDS: ACETAMINOPHEN 325 MG TABLET PO PRN (22:09)
[2020-11-17] MEDS: ATORVASTATIN 10 MG TABLET PO SCH (22:42)
[2020-11-18] MEDS: ASPIRIN CHEW 81 MG TABLET PO SCH (10:01)
[2020-11-18] MEDS: OLANZapine ODT 5 MG TABLET TL SCH ×2 (10:02→22:51)
[2020-11-18] MEDS: DOCUSATE SODIUM 100 MG CAPSULE PO SCH ×2 (10:02→22:52)
[2020-11-18] MEDS: DIVALPROEX ER 250 MG TABLET PO SCH ×2 (10:02→22:52)
[2020-11-18] MEDS: LOSARTAN 50 MG TABLET PO SCH ×2 (10:03→22:52)
[2020-11-18] MEDS: DULoxetine 30 MG CAPSULE PO SCH (10:03)
[2020-11-18] MEDS: FUROSEMIDE 20 MG TABLET PO SCH (10:03)
[2020-11-18] MEDS: TAMSULOSIN 0.4 MG CAPSULE PO SCH (10:04)
[2020-11-18] MEDS: ATORVASTATIN 10 MG TABLET PO SCH (22:52)
[2020-11-19] MEDS: OLANZapine ODT 5 MG TABLET TL PRN (02:09)
[2020-11-19] MEDS: ACETAMINOPHEN 325 MG TABLET PO PRN (04:32)
[2020-11-19] MEDS: LOSARTAN 50 MG TABLET PO SCH ×2 (09:00→20:54)
[2020-11-19] MEDS: DIVALPROEX ER 250 MG TABLET PO SCH ×2 (09:00→20:54)
[2020-11-19] MEDS: DULoxetine 30 MG CAPSULE PO SCH (09:01)
[2020-11-19] MEDS: DOCUSATE SODIUM 100 MG CAPSULE PO SCH ×2 (09:01→20:54)
[2020-11-19] MEDS: TAMSULOSIN 0.4 MG CAPSULE PO SCH (09:01)
[2020-11-19] MEDS: OLANZapine ODT 5 MG TABLET TL SCH ×2 (09:02→20:54)
[2020-11-19] MEDS: ASPIRIN CHEW 81 MG TABLET PO SCH (09:02)
[2020-11-19] MEDS: FUROSEMIDE 20 MG TABLET PO SCH (09:02)
[2020-11-19] MEDS: ATORVASTATIN 10 MG TABLET PO SCH (20:55)
--- NOTE | 2020-11-20 00:07 | ED Physician Documentation ---
ED Addendum - Addendum Addendum: 11/20/20 00:06 Patient endorsed to me by Dr. Agee. Discussed with Dr. Alka Nix at [facility] who accepts in transfer pending stable repeat H&H. There is a bed available in the nephrology wing. she requested we start PPI drip as well which I have ordered.
[2020-11-20] MEDS: OLANZapine ODT 5 MG TABLET TL PRN (02:19)
[2020-11-20] MEDS: ASPIRIN CHEW 81 MG TABLET PO SCH (11:57)
[2020-11-20] MEDS: DOCUSATE SODIUM 100 MG CAPSULE PO SCH (11:57)
[2020-11-20] MEDS: DIVALPROEX ER 250 MG TABLET PO SCH (11:57)
[2020-11-20] MEDS: DULoxetine 30 MG CAPSULE PO SCH (11:57)
[2020-11-20] MEDS: LOSARTAN 50 MG TABLET PO SCH (11:57)
[2020-11-20] MEDS: FUROSEMIDE 20 MG TABLET PO SCH (11:57)
[2020-11-20] MEDS: OLANZapine ODT 5 MG TABLET TL SCH (11:57)
[2020-11-20] MEDS: TAMSULOSIN 0.4 MG CAPSULE PO SCH (11:57)
--- NOTE | 2020-11-20 16:33 | ED Physician Documentation ---
ED Addendum - Addendum Addendum: 11/20/20 16:31The patient is without complaint this morning. He says he slept okay. He was given breakfast this morning after assessment by nursing on morning shift. He reportedly did okay here in the department without any problems overnight. He is still being assessed for placement at a memory care unit. He was assessed by physical therapy and Occupational Therapy. Report verbally is there was no particular rehab needed per se. Administrative discussions still about the location of the patient in the ER versus swing bed or on the floor are taking place. I have not been updated per se about any changes in his status so presume the patient is staying here in the ER. Social work did tell me she had contacted facilities again today looking for placement.
[2020-11-20 17:32] LABS: B. PARAPERTUSSIS- RESP PCR PAN NOT DETECTED; B. PERTUSSIS- RESP PCR PANEL NOT DETECTED; C. PNEUMONIAE- RESP PCR PANEL NOT DETECTED; CORONAVIRUS 229E-RESP PCR NOT DETECTED; CORONAVIRUS HKU1-RESP PCR NOT DETECTED; CORONAVIRUS NL63-RESP PCR NOT DETECTED; CORONAVIRUS OC43-RESP PCR NOT DETECTED; HUMAN METAPNEUMOVIRUS NOT DETECTED; INFLUENZA A- RESP PCR PANEL NOT DETECTED; INFLUENZA B - RESP PCR PANEL NOT DETECTED; M. PNEUMONIAE- RESP PCR PANEL NOT DETECTED; PARAINFLUENZA VIRUS 1 NOT DETECTED; PARAINFLUENZA VIRUS 2 NOT DETECTED; PARAINFLUENZA VIRUS 3 NOT DETECTED; PARAINFLUENZA VIRUS 4 NOT DETECTED; RHINOVIRUS/ENTEROVIRUS NOT DETECTED; RSV- RESP PCR PANEL NOT DETECTED; SARS-CoV-2 -RESP PCR PANEL NOT DETECTED
[2020-11-21] MEDS: DIVALPROEX ER 250 MG TABLET PO SCH ×2 (01:44→17:47)
[2020-11-21] MEDS: DOCUSATE SODIUM 100 MG CAPSULE PO SCH ×2 (01:44→17:47)
[2020-11-21] MEDS: LOSARTAN 50 MG TABLET PO SCH ×2 (01:44→17:47)
[2020-11-21] MEDS: OLANZapine ODT 5 MG TABLET TL SCH ×2 (01:45→17:47)
[2020-11-21] MEDS: ATORVASTATIN 10 MG TABLET PO SCH (01:46)
[2020-11-21] MEDS: ASPIRIN CHEW 81 MG TABLET PO SCH (17:46)
[2020-11-21] MEDS: DULoxetine 30 MG CAPSULE PO SCH (17:47)
[2020-11-21] MEDS: TAMSULOSIN 0.4 MG CAPSULE PO SCH (17:47)
[2020-11-21] MEDS: FUROSEMIDE 20 MG TABLET PO SCH (17:47)
[2020-11-22] MEDS: LOSARTAN 50 MG TABLET PO SCH ×3 (00:52→22:19)
[2020-11-22] MEDS: OLANZapine ODT 5 MG TABLET TL SCH ×3 (00:52→22:19)
[2020-11-22] MEDS: DIVALPROEX ER 250 MG TABLET PO SCH ×4 (00:52→22:28)
[2020-11-22] MEDS: DOCUSATE SODIUM 100 MG CAPSULE PO SCH ×3 (00:52→22:19)
[2020-11-22] MEDS: ATORVASTATIN 10 MG TABLET PO SCH ×2 (01:19→22:30)
[2020-11-22] MEDS: DULoxetine 30 MG CAPSULE PO SCH (10:11)
[2020-11-22] MEDS: FUROSEMIDE 20 MG TABLET PO SCH (10:11)
[2020-11-22] MEDS: ASPIRIN CHEW 81 MG TABLET PO SCH (10:11)
[2020-11-22] MEDS: TAMSULOSIN 0.4 MG CAPSULE PO SCH (10:12)
--- NOTE | 2020-11-22 13:07 | ED Physician Documentation ---
ED Addendum - Addendum Addendum: 11/22/20 13:06 Psychiatry consulted for medication recommendations. The patient has been calm and cooperative but has had some groping episodes of the nurses as well as the occasional outburst, mainly at night. Telepsychiatry recommends increasing the Depakote to 3 times a day from twice a day, continue at 125 mg. Also increase the nighttime Zyprexa dose to the 5 mg p.o. nightly and stay at 2.5mg in the am
--- NOTE | 2020-11-22 13:38 | TELEPSYCH PHYS NOTE ---
Telepsych Note - CHIEF COMPLAINT/HX OF PRESENT ILLNESS Chief Complaint and History of Present Illness: Name: Gen Humphreys :1935 Date: 11/22/20 Time:2:40pm CLINICAL ACCOUNT LIAISON Location of patient: [facility] Location of doctor:[facility] Length of consult:20 minutes This evaluation was conducted via telepsychiatry with the assistance of onsite staff Reason for consult: medication recommendations Requested by:Dr. Benton History of Present Illness: 85 y.o M with psychiatric history of dementia who presented from halfway after increased agitation and assaultive behaviors. He has been in ED for a week awaiting geropsychiatry placement or care facility placement. Per initial ED note, Recent discontinuation of quetiapine because of potential paradoxical response. Per ED provider, he is stable most of the day but has had inappropriate behaviors towards staff a few times. He has only had one episode of throwing things in ED. He is currently receiving Zyprexa 2.5mg BID, Depakote 125mg BID, Cymbalta 30mg daily and Zyprexa 5mg PRN. He has only gotten 2 doses of this since being in the ER. His nurse notes he is typically able to eat all meals and ambulates during the day. Nighttime appears to be when he is more agitated. Interview limited as patient was drowsy. He only answers a few question. He is A&O to person and place. He doesnt know the reason he presented to hospital and states he just wants to sleep. Per staff, they have not observed him responding to internal stimuli Collateral EMR, staff No family at bedside Majority of history obtained from chart and ED provider Sleep issues: unable to assess Psychiatric History/Treatment History: Past diagnoses: dementia Hospitalizations:unable to obtain Current Treatment: unable to obtain Suicide Assessment: unable to assess PSS-3: 1) Over the past 2 weeks have you felt down, depressed or hopeless? 2) Over the past 2 weeks have you had thoughts of killing yourself? 3) Have you ever in your life attempted to kill yourself? If yes, then when? - Within the past 24h? (Y/N), past month? (Y/N), between 1-6 months (Y/N), > 6 months (Y/N) PSS-3 Secondary Screen If #2 is yes or #3 is yes within the past 6 months, then complete secondary screen: 1) Positive on PSS-3 questions 2 & 3 active SI with a past attempt? 2) Have you been thinking about how you might kill yourself? 3) Have you had some intention of acting on your thoughts? 4) Lifetime psychiatric hospitalization? 5) Has drinking or substance abuse ever been a problem for you? 6) Current irritability, agitation, or aggression? PSS-3 Secondary Screen Scoring: Mild (0-2) No current attempt and no plan/intent Moderate (3-4) No current attempt, Plan OR intent but not both Severe (5-6) Current Attempt with Plan AND intent [facility] Safety Assessment: Risk Factors: dementia Stressors: dementia Attempts/Self-injury: unable to obtain Impulsivity: yes per HPI Drug/Alcohol History: former smoker, no alcohol use Trauma history: deferred/unable to obtain Access to firearms: none [place]/Violence/Property destruction: per HPI Legal: none Family Psych History: unknown Family History of suicide: unknown Protective Factors: Internal: External: Social supports/ Therapeutic relationships: family Relationship history: Living situation: previously at care facility Employment: retired physical therapist Education: graduate degree Responsibility to family/children/work: unable to assess Future orientation: unable to assess Medical History: Congestive heart failure, Hypertension, Coronary artery disease, [place], Atrial fibrillation, BPH Medications & Freq: Zyprexa 2.5mg BID, Depakote 125mg BID, Cymbalta 30mg daily and Zyprexa 5mg TID PRN Mental Status Exam: Appearance and attire: disheveled, appears stated age Attitude and behavior: minimally engages due to being drowsy Speech: normal volume, rate, sometimes difficult to understand Mood/ Affect: unable to assess Association and thought processes: goal directed Thought content: unable to assess Perception: unable to assess Sensorium, memory, and orientation: A&Ox person and place, drowsy Intellectual functioning: unable to assess Insight and judgment: limited - PSYCHIATRIC HX/TREATMENT HX Psychiatric: Anxiety - MEDICAL HX Does the pt have a hx of MRSA?: No Neurological History: Dementia, Head injury Eyes, Ears, Nose, Throat: None Cardiovascular: Congestive heart failure, Hypertension, Coronary artery disease, [place], Atrial fibrillation Respiratory: None Skin: None Endocrine/Autoimmune: None Gastrointestinal: None Urinary: Benign prostate hypertrophy Musculoskeletal: Osteoarthritis Blood Disorders: None - SURGICAL HX General: Other Orthopedic: Hip replacement, Other - HOME MEDICATIONS Home Meds (as last confirmed): Patient History Medication Instructions Recorded Confirmed Losartan Potassium 50 mg PO DAILY 09/13/15 11/16/20 Aspirin 81 mg PO DAILY 06/27/19 11/16/20 Diclofenac Sodium [Voltaren] TOP DAILY PRN 06/27/19 06/27/19 Furosemide [Lasix] 20 mg PO DAILY 06/27/19 11/16/20 Nitroglycerin 0.4 mg SL DAILY PRN 06/27/19 11/16/20 Acetaminophen [Tylenol] 650 mg PO Q4HR PRN MDD NTE 3g per 02/01/20 11/16/20 24hours Magnesium Hydroxide [Milk of 30 ml PO DAILY PRN MDD If no BM in 02/01/2011/16 Magnesia] 3 days QUEtiapine [SEROquel] 75 mg PO QPM 02/01/20 11/16/20 Tamsulosin HCl [Flomax] 0.4 mg PO DAILY 02/01/20 11/16/20 DULoxetine [Cymbalta] 30 mg PO DAILY 03/07/20 11/16/20 HYDROcod/ACETAM 5/325 [[place] 5/325] 1 tab PO TID 04/04/20 11/16/20 Hydrocodone/Acetaminophen [[place] 1 tab PO Q6HR PRN 04/16/20 11/16/20 5-325 Tablet] Docusate Sodium [Dss] 1 cap PO DAILY 07/11/20 11/16/20 Senna [Senokot] 1 tab PO DAILY PRN 07/11/20 11/16/20 Isosorbide Mononitrate ER [Imdur] 60 mg PO BID 09/21/20 11/16/20 OLANZapine ODT [Zyprexa Odt] 5 mg PO TID PRN 11/11/20 11/16/20 Divalproex [Alana Roche] 125 mg PO BID 11/15/20 11/16/20 - ALLERGIES Allergies (as last confirmed): Allergies Allergy/AdvReac Type Severity Reaction Status Date / Time hydrochlorothiazide AdvReac Unknown Verified 11/15/20 17:19 lisinopril AdvReac Unknown Verified 11/15/20 17:19 rosuvastatin calcium * AdvReac Unknown Verified 11/15/20 17:19 [From Crestor] - TREATMENT/PHARMACOLOGICAL RECOMMENDATION Treatment - Pharmacological - Therapy Recommendations: Impression/Risk Assessment: Current Suicide Risk Elevated?: unable to assess but does not appear to be an issue Current Violence Risk Elevated? : mild to moderate Ability to care for self: No Summary: 85 y.o M with psychiatric history of dementia who presented from halfway after increased agitation and assaultive behaviors. He has been in ED for a week awaiting geropsychiatry placement or care facility placement. He has had intermittent episodes of agitation and impulsivity. Would benefit from medication changes and geropsych placement. Diagnosis: Dementia with behavioral disturbance Treatment Plan: Level of Care: ED Psychiatric Clearance: Patient would benefit from geropsych admission, However, this has been challenging and no beds available. Alternative placement search ongoing. Observation level continue current level of observation Pharmacological: Increase Depakote to 125mg TID for impulsivity Increase night time dose of Zyprexa to 5mg QHs Monitor for sedation and monitor QTc while patient is on neuroleptics Patient psychotic? No Therapy: supportive Follow up needed while in hospital?: follow up as needed Plan discussed with Dr. Chetan Da Silva MD Psychiatrist - TIME SPENT & PROVIDER LOCATION Telepsych consultation conducted via videoconferencing: Yes List names and roles of persons who participated in consult: Dr. Da Silva. nurse Telepsych Provider Location: [place], [place] Time Telepsych consult began: 14:40 (CLINICAL ACCOUNT LIAISON) Time Telepsych consult completed: 15:00 (CLINICAL ACCOUNT LIAISON)
[2020-11-23] MEDS: ACETAMINOPHEN 325 MG TABLET PO PRN ×2 (02:26→14:44)
--- NOTE | 2020-11-23 09:20 | ED Physician Documentation ---
ED Addendum - Addendum Addendum: 11/23/20 09:18 85-year-old male admitted through the emergency department 8 days ago for increasingly aggressive behavior at [facility]. He has behavioral disturbance with dementia and bed placement has been an ongoing issue. 57 locations have been contacted. Telepsych was initiated last night after he had increased episodes of groping the night staff the night prior. They have made some recommendations, these have been initiated, and this morning the patient is asleep. He has otherwise had no specific outburst.
[2020-11-23] MEDS: LOSARTAN 50 MG TABLET PO SCH ×2 (09:39→21:00)
[2020-11-23] MEDS: FUROSEMIDE 20 MG TABLET PO SCH (09:39)
[2020-11-23] MEDS: ASPIRIN CHEW 81 MG TABLET PO SCH (09:39)
[2020-11-23] MEDS: DULoxetine 30 MG CAPSULE PO SCH (09:39)
[2020-11-23] MEDS: DIVALPROEX ER 250 MG TABLET PO SCH ×3 (09:39→21:00)
[2020-11-23] MEDS: DOCUSATE SODIUM 100 MG CAPSULE PO SCH ×2 (09:39→21:15)
[2020-11-23] MEDS: TAMSULOSIN 0.4 MG CAPSULE PO SCH (09:39)
[2020-11-23] MEDS: OLANZapine ODT 5 MG TABLET TL SCH ×2 (09:40→21:00)
[2020-11-23] MEDS: OLANZapine ODT 5 MG TABLET TL PRN (14:44)
[2020-11-23] MEDS: ATORVASTATIN 10 MG TABLET PO SCH (21:15)
[2020-11-24] MEDS: OLANZapine ODT 5 MG TABLET TL PRN (01:55)
[2020-11-24] MEDS: ACETAMINOPHEN 325 MG TABLET PO PRN (02:38)
[2020-11-24] MEDS ORDERED: ACETAMINOPHEN 325 MG TABLET PO STA (03:20)
--- NOTE | 2020-11-24 03:30 | ED Physician Documentation ---
ED Addendum - Addendum Addendum: 11/24/20 03:22 RN Kelsey alerted me to patient fever and mild tachycardia. I spoke to and examined the patient and he was able to identify his name and knew I was a doctor, but when I asked his location he [place] or [place]. Not alert to time. He denies pain anywhere at present. d/w daughter Fatoumata that he had a fever of 102 tonight and she confirmed that for now she wants to honor his wishes for comfort care only. She declined labwork, chest xray, blood cultur es, and option of antibiotics for now. His POLST form is unclear in its documentation of whether to give antibiotics. I asked her if he would want antibiotics if it meant it would prolong his life artificially and she says that she is unsure but does not want us to pursue the source of infection for now and would like an update tomorrow. 11/24/20 07:10 d/w daytime ED doc in regards to patient fever last night and POA wishes not to pursue workup. Patient endorsed to Dr. Angeles for further management and care.
[2020-11-24] MEDS: IBUPROFEN 400 MG TABLET PO STA ×2 (03:36→12:53)
[2020-11-24] MEDS: DULoxetine 30 MG CAPSULE PO SCH (08:13)
[2020-11-24] MEDS: TAMSULOSIN 0.4 MG CAPSULE PO SCH (08:15)
[2020-11-24] MEDS: ASPIRIN CHEW 81 MG TABLET PO SCH (08:15)
[2020-11-24] MEDS: DOCUSATE SODIUM 100 MG CAPSULE PO SCH ×2 (08:15→21:21)
[2020-11-24] MEDS: FUROSEMIDE 20 MG TABLET PO SCH (08:15)
[2020-11-24] MEDS: OLANZapine ODT 5 MG TABLET TL SCH ×2 (08:19→21:19)
[2020-11-24 08:48] LABS: CORONAVIRUS 229E-RESP PCR NOT DETECTED; CORONAVIRUS HKU1-RESP PCR NOT DETECTED; CORONAVIRUS NL63-RESP PCR NOT DETECTED; CORONAVIRUS OC43-RESP PCR NOT DETECTED; HUMAN METAPNEUMOVIRUS NOT DETECTED; SARS-CoV-2 -RESP PCR PANEL NOT DETECTED
[2020-11-24 08:49] LABS: B. PARAPERTUSSIS- RESP PCR PAN NOT DETECTED; B. PERTUSSIS- RESP PCR PANEL NOT DETECTED; C. PNEUMONIAE- RESP PCR PANEL NOT DETECTED; INFLUENZA A- RESP PCR PANEL NOT DETECTED; INFLUENZA B - RESP PCR PANEL NOT DETECTED; M. PNEUMONIAE- RESP PCR PANEL NOT DETECTED; PARAINFLUENZA VIRUS 1 NOT DETECTED; PARAINFLUENZA VIRUS 2 NOT DETECTED; PARAINFLUENZA VIRUS 3 NOT DETECTED; PARAINFLUENZA VIRUS 4 NOT DETECTED; RHINOVIRUS/ENTEROVIRUS NOT DETECTED; RSV- RESP PCR PANEL NOT DETECTED
[2020-11-24] MEDS: LOSARTAN 50 MG TABLET PO SCH ×2 (13:02→22:21)
[2020-11-24] MEDS: DIVALPROEX ER 250 MG TABLET PO SCH ×3 (13:02→22:21)
[2020-11-24] MEDS: ATORVASTATIN 10 MG TABLET PO SCH (21:22)
[2020-11-25] MEDS: LOSARTAN 50 MG TABLET PO SCH ×2 (01:27→20:35)
[2020-11-25] MEDS: DIVALPROEX ER 250 MG TABLET PO SCH ×3 (01:27→20:35)
[2020-11-25] MEDS: OLANZapine ODT 5 MG TABLET TL PRN (02:30)
[2020-11-25] MEDS: OLANZapine ODT 5 MG TABLET TL SCH ×2 (11:31→20:35)
[2020-11-25] MEDS: TAMSULOSIN 0.4 MG CAPSULE PO SCH (11:31)
[2020-11-25] MEDS: ASPIRIN CHEW 81 MG TABLET PO SCH (11:31)
[2020-11-25] MEDS: FUROSEMIDE 20 MG TABLET PO SCH (11:31)
[2020-11-25] MEDS: DOCUSATE SODIUM 100 MG CAPSULE PO SCH ×2 (11:31→20:35)
[2020-11-25] MEDS: DULoxetine 30 MG CAPSULE PO SCH (11:32)
--- NOTE | 2020-11-25 16:02 | ED Physician Documentation ---
ED Addendum - Addendum Addendum: 11/25/20 16:02 No reported events overnight, patient stable and cooperative in the bed. Blood pressure better today. No verbal outbursts to speak of. Still awaiting placement.
[2020-11-25] MEDS: ACETAMINOPHEN 325 MG TABLET PO PRN (20:01)
[2020-11-25] MEDS: ATORVASTATIN 10 MG TABLET PO SCH (22:02)
[2020-11-26] MEDS: OLANZapine ODT 5 MG TABLET TL PRN (03:50)
[2020-11-26] MEDS: DOCUSATE SODIUM 100 MG CAPSULE PO SCH ×2 (08:43→21:06)
[2020-11-26] MEDS: FUROSEMIDE 20 MG TABLET PO SCH (08:43)
[2020-11-26] MEDS: TAMSULOSIN 0.4 MG CAPSULE PO SCH (08:43)
[2020-11-26] MEDS: DIVALPROEX ER 250 MG TABLET PO SCH ×3 (08:43→21:06)
[2020-11-26] MEDS: ASPIRIN CHEW 81 MG TABLET PO SCH (08:43)
[2020-11-26] MEDS: OLANZapine ODT 5 MG TABLET TL SCH ×2 (08:43→21:06)
[2020-11-26] MEDS: LOSARTAN 50 MG TABLET PO SCH ×2 (08:43→21:06)
[2020-11-26] MEDS: DULoxetine 30 MG CAPSULE PO SCH (08:44)
[2020-11-26] MEDS: ACETAMINOPHEN 325 MG TABLET PO PRN (20:14)
[2020-11-26] MEDS: ATORVASTATIN 10 MG TABLET PO SCH (21:06)
[2020-11-27] MEDS: OLANZapine ODT 5 MG TABLET TL SCH (10:00)
[2020-11-27] MEDS: FUROSEMIDE 20 MG TABLET PO SCH (10:01)
[2020-11-27] MEDS: TAMSULOSIN 0.4 MG CAPSULE PO SCH (10:01)
[2020-11-27] MEDS: DULoxetine 30 MG CAPSULE PO SCH (10:02)
[2020-11-27] MEDS: DIVALPROEX ER 250 MG TABLET PO SCH (10:02)
[2020-11-27] MEDS: LOSARTAN 50 MG TABLET PO SCH (10:02)
[2020-11-27] MEDS: ASPIRIN CHEW 81 MG TABLET PO SCH (10:02)
[2020-11-27] MEDS: DOCUSATE SODIUM 100 MG CAPSULE PO SCH (10:02)
[2020-11-28] MEDS: DIVALPROEX ER 250 MG TABLET PO SCH ×5 (01:28→21:01)
[2020-11-28] MEDS: LOSARTAN 50 MG TABLET PO SCH ×3 (01:41→20:59)
[2020-11-28] MEDS: OLANZapine ODT 5 MG TABLET TL SCH ×3 (01:42→21:00)
[2020-11-28] MEDS: ATORVASTATIN 10 MG TABLET PO SCH ×2 (01:42→20:58)
[2020-11-28] MEDS: DOCUSATE SODIUM 100 MG CAPSULE PO SCH ×3 (01:42→20:58)
[2020-11-28] MEDS: ACETAMINOPHEN 325 MG TABLET PO PRN ×3 (01:53→21:02)
[2020-11-28] MEDS: FUROSEMIDE 20 MG TABLET PO SCH (08:58)
[2020-11-28] MEDS: DULoxetine 30 MG CAPSULE PO SCH (08:58)
[2020-11-28] MEDS: TAMSULOSIN 0.4 MG CAPSULE PO SCH (08:58)
[2020-11-28] MEDS: ASPIRIN CHEW 81 MG TABLET PO SCH (08:58)
--- NOTE | 2020-11-28 17:51 | ED Physician Documentation ---
ED Addendum - Addendum Addendum: 11/28/20 17:49The patient has maintained normal oral intake and meals. He did not express any complaints on greeting him this morning and asking how he is doing. Continues with his usual medications. No specific report from nursing notes for problems. Social work continue to assess for placement but no place has been found as yet. Several facilities are stable "looking ahead is medical records". No acting out or unusual behaviors are reported.
--- NOTE | 2020-11-28 20:21 | XRAY Report ---
PROCEDURE: Wrist 2 View LT INDICATIONS: pain and swelling TECHNIQUE: 2 views of the wrist were acquired. COMPARISON: None. FINDINGS: Bones: No acute fractures or dislocations. No suspicious bony lesions. Severe degenerative changes are seen at the first carpometacarpal joint. Small ossifications dorsal and volar to the wrist on la teral view appear to be chronic. Soft tissues: Contrast enhanced cyst is seen throughout the wrist. Arterial vascular calcifications a re present. Soft tissue edema is seen surrounding the wrist. IMPRESSION: 1. No acute osseous abnormality. If there is clinical concern or persistent symptoms, additional jeanne ging such as repeat radiographs or advanced imaging (e.g. CT, MRI) may be helpful for further evaluat ion. 2. Small ossifications surrounding the wrist are most likely chronic and related to degenerative jason nges. 3. Severe first carpometacarpal osteoarthrosis. 4. Chondrocalcinosis. Reviewed by: Oni Barrera MD on 11/28/2020 8:20 PM PDT Approved by: Oni Barrera MD on 11/28/2020 8:20 PM PDT Station ID: [id number]
--- NOTE | 2020-11-28 20:30 | XRAY Report ---
PROCEDURE: Elbow 2 View LT INDICATIONS: pain and swelling TECHNIQUE: 2 views of the elbow were acquired. COMPARISON: None. FINDINGS: Bones: Questionable minimally displaced fracture of the coronoid process of the ulna on lateral view. . No suspicious bony lesions. A posterior olecranon enthesophyte is present. Soft tissues: Moderate elbow joint effusion. No suspicious soft tissue calcifications. IMPRESSION: Moderate joint effusion. Possible minimally displaced fracture of the coronoid process of the ulna on one view. Recommend follow-up radiographs in 7-10 days to evaluate for increased prominence of the f racture line if present. Alternatively, MRI or CT may be obtained for further evaluation. Reviewed by: Oni Barrera MD on 11/28/2020 8:29 PM PDT Approved by: Oni Barrera MD on 11/28/2020 8:29 PM PDT Station ID: [id number]
[2020-11-28] MEDS ORDERED: CHERRY SYRUP 10 ML UDC PO ONE (21:22)
[2020-11-28] MEDS ORDERED: DEXAMETHASONE 10 MG/ML VIAL PO STA (21:22)
--- NOTE | 2020-11-28 21:28 | ED Physician Documentation ---
ED Addendum - Addendum Addendum: 11/28/20 21:24 Night nurse has expressed to this provider concerned that the patient has had noted swelling and redness in his left elbow and wrist over the last few days and has been complaining of increased pain. He has not had any known falls or trauma while here in the emergency department. On exam he does have some mild swelling of the left elbow and radial side of the left wrist. There is pain with passive flexion. Patient has not had any fevers. X-rays were performed of the wrist and elbow and does show significant arthritis of the wrist. There is questionable coronoid fracture of the ulna on one view only. However given lack of any trauma and multiple joint involvement acute fracture is less likely. I am more suspicious that he likely has a gout process or an inflammatory arthritis. His skin changes are not consistent with cellulitis. Patient will be given a one-time dose of Decadron. He otherwise remained stable here in the emergency department pending placement in a senior living facility. He has not had any behavioral outbursts of recent
[2020-11-29] MEDS: OLANZapine ODT 5 MG TABLET TL PRN (03:54)
[2020-11-29] MEDS: DOCUSATE SODIUM 100 MG CAPSULE PO SCH ×2 (09:58→20:50)
[2020-11-29] MEDS: ASPIRIN CHEW 81 MG TABLET PO SCH (09:58)
[2020-11-29] MEDS: DULoxetine 30 MG CAPSULE PO SCH (09:58)
[2020-11-29] MEDS: LOSARTAN 50 MG TABLET PO SCH ×2 (09:58→20:50)
[2020-11-29] MEDS: OLANZapine ODT 5 MG TABLET TL SCH ×2 (09:58→20:51)
[2020-11-29] MEDS: TAMSULOSIN 0.4 MG CAPSULE PO SCH (09:58)
[2020-11-29] MEDS: FUROSEMIDE 20 MG TABLET PO SCH (09:58)
[2020-11-29] MEDS: DIVALPROEX ER 250 MG TABLET PO SCH ×3 (10:01→20:51)
[2020-11-29] MEDS: ATORVASTATIN 10 MG TABLET PO SCH (20:49)
[2020-11-30] MEDS: OLANZapine ODT 5 MG TABLET TL PRN (03:26)
[2020-11-30] MEDS: DIVALPROEX ER 250 MG TABLET PO SCH ×3 (05:52→21:40)
[2020-11-30] MEDS ORDERED: MULTIVITAMIN W/MINERALS TABLET PO SCH (08:00)
[2020-11-30] MEDS: OLANZapine ODT 5 MG TABLET TL SCH ×2 (09:09→20:35)
[2020-11-30] MEDS: DULoxetine 30 MG CAPSULE PO SCH (09:09)
[2020-11-30] MEDS: MULTIVITAMIN W/MINERALS TABLET PO SCH (09:09)
[2020-11-30] MEDS: TAMSULOSIN 0.4 MG CAPSULE PO SCH (09:10)
[2020-11-30] MEDS: LOSARTAN 50 MG TABLET PO SCH ×2 (09:10→20:35)
[2020-11-30] MEDS: FUROSEMIDE 20 MG TABLET PO SCH (09:10)
[2020-11-30] MEDS: ASPIRIN CHEW 81 MG TABLET PO SCH (09:10)
[2020-11-30] MEDS: DOCUSATE SODIUM 100 MG CAPSULE PO SCH ×2 (09:10→20:35)
--- NOTE | 2020-11-30 15:54 | ED Physician Documentation ---
ED Addendum - Addendum Addendum: 11/30/20 15:53The patient is pleasant and talkative when I meet with him. He does not have any particular complaints. He is just finishing his lunch. Nursing notes do not show any concerns from yesterday into today. Social work is still working on placement. No adjustment of medications is apparently needed.
[2020-11-30] MEDS: ATORVASTATIN 10 MG TABLET PO SCH (20:35)
[2020-12-01] MEDS: OLANZapine ODT 5 MG TABLET TL PRN (00:49)
[2020-12-01] MEDS: DIVALPROEX ER 250 MG TABLET PO SCH ×3 (06:29→21:58)
[2020-12-01] MEDS: ACETAMINOPHEN 325 MG TABLET PO PRN ×2 (06:29→14:18)
[2020-12-01] MEDS: DOCUSATE SODIUM 100 MG CAPSULE PO SCH ×2 (10:08→22:00)
[2020-12-01] MEDS: ASPIRIN CHEW 81 MG TABLET PO SCH (10:08)
[2020-12-01] MEDS: MULTIVITAMIN W/MINERALS TABLET PO SCH (10:08)
[2020-12-01] MEDS: FUROSEMIDE 20 MG TABLET PO SCH (10:08)
[2020-12-01] MEDS: DULoxetine 30 MG CAPSULE PO SCH (10:08)
[2020-12-01] MEDS: TAMSULOSIN 0.4 MG CAPSULE PO SCH (10:09)
[2020-12-01] MEDS: OLANZapine ODT 5 MG TABLET TL SCH ×2 (10:09→21:15)
[2020-12-01] MEDS: LOSARTAN 50 MG TABLET PO SCH ×2 (10:09→22:00)
[2020-12-01] MEDS ORDERED: ALBUTEROL NEB 2.5 MG/3 ML INH STA (21:40)
[2020-12-01] MEDS: ATORVASTATIN 10 MG TABLET PO SCH (21:59)
[2020-12-02] MEDS: ACETAMINOPHEN 325 MG TABLET PO PRN ×2 (06:19→13:55)
[2020-12-02] MEDS: DIVALPROEX ER 250 MG TABLET PO SCH ×3 (06:19→22:23)
[2020-12-02] MEDS: FUROSEMIDE 20 MG TABLET PO SCH (10:19)
[2020-12-02] MEDS: OLANZapine ODT 5 MG TABLET TL SCH ×2 (10:19→22:20)
[2020-12-02] MEDS: MULTIVITAMIN W/MINERALS TABLET PO SCH (10:19)
[2020-12-02] MEDS: LOSARTAN 50 MG TABLET PO SCH ×2 (10:19→22:20)
[2020-12-02] MEDS: DULoxetine 30 MG CAPSULE PO SCH (10:19)
[2020-12-02] MEDS: TAMSULOSIN 0.4 MG CAPSULE PO SCH (10:19)
[2020-12-02] MEDS: ASPIRIN CHEW 81 MG TABLET PO SCH (10:19)
[2020-12-02] MEDS: DOCUSATE SODIUM 100 MG CAPSULE PO SCH ×2 (10:19→22:20)
[2020-12-02] MEDS: ATORVASTATIN 10 MG TABLET PO SCH (22:18)
[2020-12-03] MEDS: OLANZapine ODT 5 MG TABLET TL PRN ×2 (03:27→14:46)
[2020-12-03] MEDS: DIVALPROEX ER 250 MG TABLET PO SCH ×3 (06:21→21:12)
[2020-12-03] MEDS: ASPIRIN CHEW 81 MG TABLET PO SCH (09:04)
[2020-12-03] MEDS: OLANZapine ODT 5 MG TABLET TL SCH ×2 (09:04→21:12)
[2020-12-03] MEDS: ACETAMINOPHEN 325 MG TABLET PO PRN (09:04)
[2020-12-03] MEDS: MULTIVITAMIN W/MINERALS TABLET PO SCH (09:04)
[2020-12-03] MEDS: TAMSULOSIN 0.4 MG CAPSULE PO SCH (09:04)
[2020-12-03] MEDS: FUROSEMIDE 20 MG TABLET PO SCH (09:04)
[2020-12-03] MEDS: LOSARTAN 50 MG TABLET PO SCH ×2 (09:04→21:13)
[2020-12-03] MEDS: DOCUSATE SODIUM 100 MG CAPSULE PO SCH ×2 (09:04→21:12)
[2020-12-03] MEDS: DULoxetine 30 MG CAPSULE PO SCH (09:04)
--- NOTE | 2020-12-03 19:50 | ED Physician Documentation ---
ED Addendum - Addendum Addendum: 12/03/20 19:50 Cooperative today, no outbursts. Was in a chair for much of the shift. Ordered regular PT consult says he needs more physical activity. Still pending placement.
[2020-12-03] MEDS: ATORVASTATIN 10 MG TABLET PO SCH (21:12)
[2020-12-04] MEDS: ACETAMINOPHEN 325 MG TABLET PO PRN (06:14)
[2020-12-04] MEDS: FUROSEMIDE 20 MG TABLET PO SCH (10:35)
[2020-12-04] MEDS: TAMSULOSIN 0.4 MG CAPSULE PO SCH (10:35)
[2020-12-04] MEDS: DOCUSATE SODIUM 100 MG CAPSULE PO SCH ×2 (10:35→21:15)
[2020-12-04] MEDS: OLANZapine ODT 5 MG TABLET TL SCH ×2 (10:36→21:15)
[2020-12-04] MEDS: ASPIRIN CHEW 81 MG TABLET PO SCH (10:36)
[2020-12-04] MEDS: DIVALPROEX ER 250 MG TABLET PO SCH (10:36)
[2020-12-04] MEDS: LOSARTAN 50 MG TABLET PO SCH ×2 (10:37→21:15)
[2020-12-04] MEDS: MULTIVITAMIN W/MINERALS TABLET PO SCH (10:37)
[2020-12-04] MEDS: DULoxetine 30 MG CAPSULE PO SCH (10:38)
[2020-12-05] MEDS: DIVALPROEX ER 250 MG TABLET PO SCH ×4 (07:39→21:49)
[2020-12-05] MEDS: ATORVASTATIN 10 MG TABLET PO SCH ×2 (07:40→21:50)
[2020-12-05] MEDS: TAMSULOSIN 0.4 MG CAPSULE PO SCH (10:08)
[2020-12-05] MEDS: DOCUSATE SODIUM 100 MG CAPSULE PO SCH ×2 (10:08→21:49)
[2020-12-05] MEDS: MULTIVITAMIN W/MINERALS TABLET PO SCH (10:08)
[2020-12-05] MEDS: DULoxetine 30 MG CAPSULE PO SCH (10:08)
[2020-12-05] MEDS: LOSARTAN 50 MG TABLET PO SCH ×2 (10:08→21:51)
[2020-12-05] MEDS: FUROSEMIDE 20 MG TABLET PO SCH (10:08)
[2020-12-05] MEDS: ASPIRIN CHEW 81 MG TABLET PO SCH (10:08)
[2020-12-05] MEDS: OLANZapine ODT 5 MG TABLET TL SCH ×2 (10:08→21:51)
[2020-12-06] MEDS: DIVALPROEX ER 250 MG TABLET PO SCH ×3 (00:59→22:00)
[2020-12-06] MEDS: MULTIVITAMIN W/MINERALS TABLET PO SCH (09:26)
[2020-12-06] MEDS: LOSARTAN 50 MG TABLET PO SCH ×2 (09:27→20:56)
[2020-12-06] MEDS: TAMSULOSIN 0.4 MG CAPSULE PO SCH (09:27)
[2020-12-06] MEDS: FUROSEMIDE 20 MG TABLET PO SCH (09:27)
[2020-12-06] MEDS: ASPIRIN CHEW 81 MG TABLET PO SCH (09:27)
[2020-12-06] MEDS: DULoxetine 30 MG CAPSULE PO SCH (09:27)
[2020-12-06] MEDS: DOCUSATE SODIUM 100 MG CAPSULE PO SCH ×2 (09:27→20:56)
[2020-12-06] MEDS: OLANZapine ODT 5 MG TABLET TL SCH ×2 (09:27→20:56)
[2020-12-06] MEDS: ACETAMINOPHEN 325 MG TABLET PO PRN (13:50)
--- NOTE | 2020-12-06 18:21 | ED Physician Documentation ---
ED Addendum - Addendum Addendum: 12/06/20 18:18 85-year-old male with advanced dementia has not had any behavioral outbursts in the last 24 hours. He has been accepted to [facility] and we are awaiting final arrangements anticipating it may be as long as 4 business days before the patient is actually transferred. His medication list active here has been transcribed to his admission orders. 12/06/20 18:21
[2020-12-06] MEDS: ATORVASTATIN 10 MG TABLET PO SCH (20:56)
[2020-12-07] MEDS: DIVALPROEX ER 250 MG TABLET PO SCH ×2 (05:54→05:59)
[2020-12-07] MEDS: DOCUSATE SODIUM 100 MG CAPSULE PO SCH (10:14)
[2020-12-07] MEDS: MULTIVITAMIN W/MINERALS TABLET PO SCH (10:14)
[2020-12-07] MEDS: LOSARTAN 50 MG TABLET PO SCH (10:14)
[2020-12-07] MEDS: OLANZapine ODT 5 MG TABLET TL SCH (10:14)
[2020-12-07] MEDS: DULoxetine 30 MG CAPSULE PO SCH (10:14)
[2020-12-07] MEDS: ASPIRIN CHEW 81 MG TABLET PO SCH (10:14)
[2020-12-07] MEDS: FUROSEMIDE 20 MG TABLET PO SCH (10:14)
[2020-12-07] MEDS: TAMSULOSIN 0.4 MG CAPSULE PO SCH (10:15)
--- NOTE | 2020-12-07 11:32 | ED Physician Documentation ---
ED Addendum - Addendum Addendum: 12/07/20 11:32 85-year-old male boarding in the emergency department with advanced dementia and behavioral disturbance has not had behavioral disturbance overnight and arrangements have been made for the patient to be transferred to a facility for residential care.
[2020-12-07 16:01] VITALS: BP 125/62
== END 2020-12-07 14:16 | disposition home or self-care (01) ==
LOC: EDUNIT# → ED 17:04
DX: F03.91 Unspecified dementia, unspecified severity, with behavioral disturbance (principal); I10 Essential (primary) hypertension; Z87.891 Personal history of nicotine dependence; R50.9 Fever, unspecified; Z20.822 Contact with and (suspected) exposure to COVID-19
CPT/HCPCS: 73070; 73100; 81003; 87631; 94640; 99285; A9270; G0425; Q3014; 0202U; 81001; 87086